=== PATIENT | male | born 1965 | race Caucasian/White ===

== ENCOUNTER 2018-03-21 22:30 | Inpatient (IN) | payer SELFPAY ==
[2018-03-21] MEDS ORDERED: FENTANYL CITRATE INJ/PF 100 MCG/2 ML AMPUL IV ONE (22:52)
[2018-03-21] MEDS ORDERED: IPRATROPIUM/ALBUTEROL 0.5-2.5 MG/3 ML AMPUL NEB ONE (22:59)
--- NOTE | 2018-03-21 23:05 | ER Document Report ---
ED General <DORON CADET - Last Filed: 03/21/18 23:11> - General TRAVEL OUTSIDE OF THE [place] IN LAST 30 DAYS: No <JEFF LERNER - Last Filed: 03/22/18 06:53> - General Chief Complaint: Shortness Of Breath Stated Complaint: CHEST PAIN/DIFFICULTY BREATHING Time Seen by Provider: 03/21/18 22:41 Notes: Patient is a 53-year-old male who presents emergency department for shortness of breath. This started yesterday and he states his shortness of breath has gotten worse in the past 2 hours. He also has associated chest pain with this. He also complains of lower extremity swelling that has increased for the past 2 days. He has a history of sleep apnea. He also has a history of chronic back pain, in which he takes Vicodin and gabapentin. He has not taken his gabapentin or Vicodin today. Denies any fevers, body aches, or chills. (MARY LERNERHANIE Lizzy) - Related Data Allergies/Adverse Reactions: No Known Allergies Allergy (Verified 03/21/18 22:33) Past Medical History - Social History Smoking Status: Never Smoker Frequency of alcohol use: None Drug Abuse: None Lives with: Spouse/Significant other Family History: Hypertension, Other - CHF - Past Medical History Cardiac Medical History: Reports: Hx Hypertension Denies: Hx Coronary Artery Disease, Hx Heart Attack Pulmonary Medical History: Denies: Hx Asthma, Hx Bronchitis, Hx COPD, Hx Pneumonia Neurological Medical History: Denies: Hx Cerebrovascular Accident, Hx Seizures Musculoskeletal Medical History: Denies Hx Arthritis Psychiatric Medical History: Reports: Hx Anxiety - Immunizations Hx Diphtheria, Pertussis, Tetanus Vaccination: Yes <MARY LERNERHANIE Lizzy - Last Filed: 03/22/18 06:53> Review of Systems <DORON CADET - Last Filed: 03/21/18 23:11> <JEFF LERNER - Last Filed: 03/22/18 06:53> - Review of Systems Notes: REVIEW OF SYSTEMS: CONSTITUTIONAL : Denies recent illness. Denies recent unintentional weight loss. Denies fever, chills, or sweats. EENT: Denies eye, ear, throat, or mouth pain, discharge, or symptoms. Denies nasal or sinus congestion. CARDIOVASCULAR: See HPI RESPIRATORY: See HPI GASTROINTESTINAL: Denies nausea, vomiting, and diarrhea. Denies abdominal pain. Denies constipation. GENITOURINARY: Denies difficulty urinating, burning, blood in urine, urgency or frequency. MUSCULOSKELETAL: Denies neck and back pain. Denies joint pain or swelling. SKIN: Denies rash, itchiness, or lesions HEMATOLOGIC : Denies easy bruising or bleeding. LYMPHATIC: Denies swollen, painful, enlarged glands. NEUROLOGICAL: Denies no numbness or tingling denies weakness. Denies headache. Denies altered mental status. Denies alteration in speech. PSYCHIATRIC: Denies stress, anxiety, alteration in sleep patterns, or depression. All other systems reviewed and negative. (JEFF LERNER) Physical Exam <DORON CADET - Last Filed: 03/21/18 23:11> <JEFF LERNER - Last Filed: 03/22/18 06:53> - Vital signs Vitals: Temp Pulse Resp BP Pulse Ox 97.4 F 64 32 H 168/84 H 92 03/21/18 22:34 03/21/18 22:34 03/21/18 22:34 03/21/18 22:34 03/21/18 22:34 - Notes Notes: PHYSICAL EXAMINATION: GENERAL: Morbidly obese, well-nourished, moderate distress. HEAD: Normocephalic, atraumatic. EYES: PERRL, conjunctiva normal, all extraocular movements intact, sclera nonicteric ENT: Moist mucous membranes. NECK: Supple, no noticeable swelling, redness, rash. Normal range of motion. LUNGS: Clear upper lobes to auscultation. Diminished breath sounds with mild wheezing in the bases. Tachypneic CARDIOVASCULAR: S1-S2, regular rate, regular rhythm. Radial pulses 2+, normal. ABDOMEN: Normoactive bowel sounds. Soft, nontender, no guarding, no rebound tenderness, and no masses palpated. EXTREMITIES: 2+ pitting edema in lower extremities. normal strength and range of motion, No cyanosis. NEUROLOGICAL: Moves all extremities upon command. Strength 5/5 in all extremities. PSYCH: Normal mood, normal affect. SKIN: Warm, dry. No rash, lesions, ulcerations noted. Normal skin turgor. ( JEFF LERNER) Course - Laboratory Result Diagrams: 03/21/18 22:54 03/21/18 22:54 <DORON CADET - Last Filed: 03/21/18 23:11> - Laboratory Result Diagrams: 03/21/18 22:54 03/21/18 22:54 <JEFF LERNER - Last Filed: 03/22/18 06:53> - Re-evaluation Re-evalutation: 03/21/18 23:11 Patient was initially seen by the nurse practitioner, Mrs. lerner. She has me to evaluate patient as well. Patient has a lot of pain with respirations. Does not have a history of asthma and COPD. He started feeling short of breath in last 1-2 days. He was hypoxic upon arrival. He is obese. Has some swelling in his legs but equal bilaterally. No history of DVT or PE. On lung auscultation his upper lung wooten are clear but his lower lung wooten have some wheezing and decreased air movement. We will give her breathing treatment. Will do a chest x-ray to look for evidence of pneumonia. His EKG does not show any evidence of acute PA. Is no evidence of right heart strain on his EKG at this time. We will keep on clinical research monitor. Based on his chest x -ray and lab work will determine whether not we need to do further investigation into other potential causes such as PE. (DORON CADET) Differential diagnosis for the patient's chest pain includes ischemic chest pain (STEMI, NSTEMI, or unstable angina), pulmonary embolism, aortic dissection , pericarditis, chest wall pain. HEART Score: History:2 EK Age:2 Risk Factors:0 Troponin:0 Total: 3 03/21/18 23:03 Laboratory studies, chest x-ray, pain medicine, have been ordered. Will place patient on the clinical research monitor. His oxygen saturation was 89%, he was placed on 2 L nasal cannula. 03/22/18 00:25 Patient's x-ray is negative at this time. He will be sent for a CT of the chest to rule out PE. 03/22/18 01:[address] of the chest was negative for PE. He will be taken off oxygen and ambulated to see if he will desaturate. 03/22/18 02:05 She was ambulated from room to the bathroom, and he desaturated to 87% SPO2. Staff reported he was short of breath when walking to the bathroom. When he was put back in bed, his oxygen saturation was in the low 90s and was put back on oxygen. Awaiting second set of troponins. 03/22/18 02:48 Patient second troponins have resulted, and are negative. I will call Dr. Rivas for admission. 03/22/18 03:[address] Rivas, patient will be admitted to telemetry. (JEFF LERNER) - Vital Signs Vital signs: Temp Pulse Resp BP Pulse Ox 98.1 F 82 21 H 166/73 H 96 03/22/18 04:41 03/22/18 04:41 03/22/18 04:41 03/22/18 04:41 03/22/18 04:41 - Laboratory Laboratory results interpreted by me: 03/21/18 03/21/18 03/21/18 22:54 22:54 23:45 WBC 11.7 H Hgb 13.1 L Plt Count 122 L Seg Neutrophils % 80.9 H Lymphocytes % 12.7 L Absolute Neutrophils 9.4 H VBG pCO2 64.5 H VBG HCO3 34.6 H Carbon Dioxide 35 H TSH 03/22/18 01:45 WBC Hgb Plt Count Seg Neutrophils % Lymphocytes % Absolute Neutrophils VBG pCO2 VBG HCO3 Carbon Dioxide TSH 0.28 L Discharge <DORON CADET - Last Filed: 03/21/18 23:11> - Discharge Admitting Provider: Hospitalist Unit Admitted: Telemetry <JEFF LERNER - Last Filed: 03/22/18 06:53> - Discharge Clinical Impression: Hypoxia, Hypertension Condition: Fair Disposition: ADMITTED OBSERVATION
[2018-03-21 23:09] LABS: ABSOLUTE EOSINOPHILS # (AUTO) 0.2 10^3/uL (0.0-0.6); ABSOLUTE LYMPHOCYTES (AUTO) 1.5 10^3/uL (0.5-4.7); ABSOLUTE MONOCYTES (AUTO) 0.6 10^3/uL (0.1-1.4); ABSOLUTE NEUT (AUTO) 9.4 10^3/uL (1.7-8.2); BASOPHILS % (AUTO) 0.1 % (0-2); EOSINOPHILS % (AUTO) 1.5 % (0-6); HEMATOCRIT 39.9 % (37.9-51.0); HEMOGLOBIN 13.1 g/dL (13.5-17.0); LYMPHOCYTES % (AUTO) 12.7 % (13-45); MEAN CORPUSCULAR HEMOGLOBIN 29.9 pg (27.0-33.4); MEAN CORPUSCULAR HGB CONC 32.9 g/dL (32.0-36.0); MEAN CORPUSCULAR VOLUME 91 fl (80-97); MONOCYTES % (AUTO) 4.8 % (3-13); RED BLOOD COUNT 4.39 10^6/uL (4.35-5.55); RED CELL DISTRIBUTION WIDTH 13.9 % (11.5-14.0); SEGMENTED NEUTROPHILS % (AUTO) 80.9 % (42-78); TOTAL CELLS COUNTED % (AUTO) 100 %; WHITE BLOOD COUNT 11.7 10^3/uL (4.0-10.5)
[2018-03-21 23:16] LABS: PLATELET COUNT 122 10^3/uL (150-450)
[2018-03-21 23:17] LABS: ALANINE AMINOTRANSFERASE 47 U/L (21-72); ALKALINE PHOSPHATASE 62 U/L (38-126); ANION GAP 9 (5-19); ASPARTATE AMINO TRANSFERASE 33 U/L (17-59); BILIRUBIN,DIRECT 0.4 mg/dL (0.0-0.4); BILIRUBIN,TOTAL 0.5 mg/dL (0.2-1.3); BLOOD UREA NITROGEN 12 mg/dL (7-20); CALCIUM 8.9 mg/dL (8.4-10.2); CARBON DIOXIDE 35 mmol/L (22-30); CHLORIDE 99 mmol/L (98-107); GLUCOSE 107 mg/dL (75-110); POTASSIUM 4.4 mmol/L (3.6-5.0); SODIUM 142.5 mmol/L (137-145); TOTAL PROTEIN 7.1 g/dL (6.3-8.2)
[2018-03-21 23:29] LABS: TROPONIN I 0.013 ng/mL
[2018-03-21] MEDS ORDERED: MORPHINE SULFATE 10 MG/ML INJ IV ONE (23:43)
[2018-03-22 00:08] LABS: VENOUS BLOOD BASE EXCESS 6.7 mmol/L; VENOUS BLOOD HCO3 34.6 mmol/L (20-32); VENOUS BLOOD PCO2 64.5 mmHg (35-63); VENOUS BLOOD PH 7.35 (7.30-7.42)
[2018-03-22 00:10] LABS: INTERNATIONAL RATION (INR) 0.96; PROTHROMBIN TIME 13.3 SEC (11.4-15.4)
--- NOTE | 2018-03-22 00:19 | RADIOLOGY REPORT (SQ) ---
EXAM DESCRIPTION: XR CHEST 1 VIEW COMPLETED DATE/TME: 03/21/2018 22:42 CLINICAL HISTORY: 53 years, Male, difficulty breathing COMPARISON: None. NUMBER OF VIEWS: One TECHNIQUE: AP view of the chest LIMITATIONS: None. FINDINGS: The lungs are clear. The heart is mildly enlarged. There is mild elevation the right hemidiaphragm. There is no pneumothorax or pleural effusion. There is no acute fracture IMPRESSION: No acute cardiopulmonary abnormality 2010 [employer] [facility] [employer]- All Rights Reserved
[2018-03-22 00:24] LABS: PARTIAL THROMBOPLASTIN TIME 33.9 SEC (23.5-35.8)
--- NOTE | 2018-03-22 01:26 | RADIOLOGY REPORT (SQ) ---
CT CHEST ANGIOGRAPHY WITHOUT THEN WITH IV CONTRAST HISTORY: Shortness of breath. Evaluate for pulmonary embolism. COMPARISON: None. TECHNIQUE: CT angiogram of the chest with IV contrast. 3-D MIP images were obtained in coronal and sagittal reconstructions. This exam was performed according to our departmental dose-optimization program, which includes automated exposure control, adjustment of the mA and/or kV according to patient size and/or use of iterative reconstruction technique. Motion artifact limits evaluation. FINDINGS: No acute pulmonary embolism is seen. No thoracic aortic aneurysm or dissection. Mild cardiomegaly is present. No pericardial effusion. Thyroid gland is unremarkable. No mediastinal, hilar, or axillary adenopathy is seen. No consolidation, pleural effusion, or pneumothorax is identified. Visualized upper abdomen is unremarkable. Osseous structures are intact. IMPRESSION: No acute pulmonary embolism.
[2018-03-22] MEDS ORDERED: ASPIRIN 325 MG TABLET PO ONE (02:57)
[2018-03-22] MEDS ORDERED: HYDRALAZINE HCL INJ/PF 20 MG/1 ML SDV IV ONE (02:58)
[2018-03-22] MEDS ORDERED: FUROSEMIDE 40 MG TABLET PO ONE (02:58)
[2018-03-22] MEDS ORDERED: IPRATROPIUM/ALBUTEROL 0.5-2.5 MG/3 ML AMPUL NEB PRN (03:23)
[2018-03-22] MEDS ORDERED: ACETAMINOPHEN 325 MG TABLET PO PRN (03:23)
[2018-03-22] MEDS ORDERED: MAGNESIUM HYDROXIDE SUSP 30 ML UDCUP PO PRN (03:23)
[2018-03-22] MEDS ORDERED: MAG HYDROX/AL HYDROX/SIMETH SUSP 30 ML UDCUP PO PRN (03:23)
--- NOTE | 2018-03-22 03:34 | PDOC H&P ---
History of Present Illness Admission Date/PCP: 03/22/18 03:14 Patient complains of: Shortness of breath and chest pain History of Present Illness: DUNCAN POLK is a 53 year old male with a past medical history of morbid obesity, opiate dependent chronic pain, sleep apnea and noncompliance. Patient presents with at least 24 hours of worsening shortness of breath at rest associated with retrosternal chest pain 3 out of 5 intensity, which is nonradiating pressure in nature exacerbated by deep breathing, denies palpitations nausea or vomiting. In the emergency room he is found to have hypoxia of 87% on room air requiring oxygen. Chemistry suggestive of chronic hypercapnia. He is referred to the hospitalist for admission. Patient admits to lower extremity edema and noncompliance with CPAP. He denies recent changes in medication regiment. Past Medical History Cardiac Medical History: Reports: Hypertension Denies: Coronary Artery Disease, Myocardial Infarction Pulmonary Medical History: Reports: Sleep Apnea Denies: Asthma, Bronchitis, Chronic Obstructive Pulmonary Disease (COPD), Pneumonia Neurological Medical History: Denies: Seizures Endocrine Medical History: Reports: Obesity Musculoskeltal Medical History: Denies: Arthritis Hematology: Denies: Anemia Social History Information Source: Patient Smoking Status: Never Smoker Frequency of Alcohol Use: None Drugs: None - Advance Directive Resuscitation Status: Full Code Family History Family History: Hypertension Parental Family History Reviewed: Yes Children Family History Reviewed: Yes Sibling(s) Family History Reviewed.: Yes Medication/Allergy Home Medications: Buspirone HCl [Buspar 15 mg Tablet] 10 mg PO BID 10/15/12 Diazepam [Valium 5 mg Tablet] 10 mg PO QHS PRN 10/15/12 Lisinopril [Prinivil 5 mg Tablet] 2.5 mg PO DAILY #0 tablet 10/16/12 Metoprolol Tartrate [Lopressor 25 mg Tablet] 12.5 mg PO Q12 #0 tablet 10/16/12 Gabapentin [Gralise] 300 mg PO TID 08/25/14 Multivitamin [Multivitamins] 1 tab PO DAILY 08/25/14 Naproxen 500 mg PO BID 08/25/14 Oxycodone HCl/Acetaminophen [Percocet 5-325 mg Tablet] 1 - 2 tab PO ASDIR PRN # 30 tablet 09/01/14 Allergies/Adverse Reactions: No Known Allergies Allergy (Verified 03/21/18 22:33) Review of Systems Constitutional: PRESENT: as per HPI, fatigue, weight gain. ABSENT: chills, fever(s), headache(s), weight loss Eyes: ABSENT: visual disturbances Ears: ABSENT: hearing changes Cardiovascular: PRESENT: as per HPI, chest pain, edema, orthropnea. ABSENT: dyspnea on exertion, palpitations Respiratory: PRESENT: dyspnea. ABSENT: cough, hemoptysis, sputum Gastrointestinal: ABSENT: abdominal pain, constipation, diarrhea, hematemesis, hematochezia, nausea, vomiting Genitourinary: ABSENT: dysuria, hematuria Musculoskeletal: PRESENT: back pain. ABSENT: joint swelling Integumentary: ABSENT: rash, wounds Neurological: ABSENT: abnormal gait, abnormal speech, confusion, dizziness, focal weakness, syncope Psychiatric: ABSENT: anxiety, depression, homidical ideation, suicidal ideation Endocrine: ABSENT: cold intolerance, heat intolerance, polydipsia, polyuria Hematologic/Lymphatic: ABSENT: easy bleeding, easy bruising Physical Exam Vital Signs: Temp Pulse Resp BP Pulse Ox 97.4 F 64 19 160/88 H 95 03/21/18 22:34 03/21/18 22:34 03/22/18 03:01 03/22/18 03:01 03/22/18 03:01 General appearance: PRESENT: cooperative, mild distress, morbidly obese, well- developed, well-nourished Head exam: PRESENT: atraumatic, normocephalic Eye exam: PRESENT: conjunctiva pink, EOMI, PERRLA. ABSENT: scleral icterus Ear exam: PRESENT: normal external ear exam Mouth exam: PRESENT: moist, tongue midline Neck exam: ABSENT: carotid bruit, JVD, lymphadenopathy, thyromegaly Respiratory exam: PRESENT: accessory muscle use, clear to auscultation jess, crackles, prolonged expiratory phas, tachypnea. ABSENT: rales, rhonchi, wheezes Cardiovascular exam: PRESENT: RRR. ABSENT: diastolic murmur, rubs, systolic murmur Pulses: PRESENT: normal dorsalis pedis pul Vascular exam: PRESENT: normal capillary refill GI/Abdominal exam: PRESENT: normal bowel sounds, soft. ABSENT: distended, guarding, mass, organolmegaly, rebound, tenderness Rectal exam: PRESENT: deferred Extremities exam: PRESENT: full ROM, +1 edema. ABSENT: calf tenderness, clubbing, pedal edema Neurological exam: PRESENT: alert, awake, oriented to person, oriented to place , oriented to time, oriented to situation, CN II-XII grossly intact. ABSENT: motor sensory deficit Psychiatric exam: PRESENT: appropriate affect, normal mood. ABSENT: homicidal ideation, suicidal ideation Skin exam: PRESENT: dry, intact, warm. ABSENT: cyanosis, rash Results Impressions: Chest X-Ray 03/21/18 22:42 IMPRESSION: No acute cardiopulmonary abnormality 2010 [employer] [facility]- All Rights Reserved Chest/Abdomen CTA 03/22/18 00:26 IMPRESSION: No acute pulmonary embolism. Assessment & Plan - Diagnosis (1) Morbid obesity with alveolar hypoventilation Is this a current diagnosis for this admission?: Yes Plan: Limit medications reducing respiratory drive, follow-up urine drug screen, CPAP and education (2) Hypercapnic respiratory failure Is this a current diagnosis for this admission?: Yes Plan: Secondary to #1 (3) Opiate dependence Is this a current diagnosis for this admission?: Yes Plan: Weaning given contributing to respiratory failure (4) Obstructive sleep apnea Is this a current diagnosis for this admission?: Yes Plan: CPAP (5) Noncompliance Is this a current diagnosis for this admission?: Yes Plan: Education (6) Atypical chest pain Is this a current diagnosis for this admission?: Yes Plan: Atypical chest pain though the patient's pain is atypical there are multiple risk factors for coronary artery disease and subsequently will observe and evaluation of acute coronary syndrome versus coronary artery disease with anginal equivalents. Cardiac monitoring blood pressure Q6 hours ,TSH, lipid profile, serial cardiac enzymes and consideration of cardiac stress test - Time Time Spent: 50 to 70 Minutes - Inpatient Certification Medical Necessity: Need Close Monitoring Due to Risk of Patient Decompensation
[2018-03-22] MEDS: HEPARIN SOD (PORCINE) 5,000 UNIT/ML 1 ML SYRINGE SUBCUT SCH ×3 (05:47→21:27)
[2018-03-22 07:04] LABS: URINE AMPHETAMINES SCREEN NEGATIVE; URINE BENZODIAZEPINES SCREEN NEGATIVE; URINE COCAINE SCREEN NEGATIVE; URINE MARIJUANA (THC) SCREEN NEGATIVE; URINE PHENCYCLIDINE SCREEN NEGATIVE
[2018-03-22 07:05] LABS: URINE BARBITURATES SCREEN NEGATIVE; URINE METHADONE SCREEN NEGATIVE
[2018-03-22] MEDS ORDERED: IPRATROPIUM/ALBUTEROL 0.5-2.5 MG/3 ML AMPUL NEB SCH (08:00)
[2018-03-22] MEDS ORDERED: ADENOSINE INJ/PF 6 MG/2 ML SDV IV ONE (08:48)
[2018-03-22] MEDS ORDERED: DILTIAZEM HCL/D5W 125 MG/125 ML RTUINJ IV PRN (09:01)
[2018-03-22 09:02] LABS: TROPONIN I < 0.012 ng/mL
[2018-03-22] MEDS ORDERED: NORMAL SALINE 1000 ML 1,000 ML IV PRN (09:03)
[2018-03-22] MEDS ORDERED: DILTIAZEM HCL INJ 25 MG/5 ML VIAL ONE ×2 (09:05→13:49)
[2018-03-22 09:10] LABS: ANION GAP 12 (5-19); BLOOD UREA NITROGEN 9 mg/dL (7-20); CALCIUM 9.4 mg/dL (8.4-10.2); CARBON DIOXIDE 34 mmol/L (22-30); CHLORIDE 96 mmol/L (98-107); GLUCOSE 133 mg/dL (75-110); POTASSIUM 4.1 mmol/L (3.6-5.0); SODIUM 141.8 mmol/L (137-145)
[2018-03-22] MEDS ORDERED: DILTIAZEM HCL INJ 25 MG/5 ML VIAL IV ONE ×2 (09:30→14:00)
[2018-03-22 09:32] LABS: ARTERIAL BLOOD BASE EXCESS 9.3 mmol/L; ARTERIAL BLOOD FIO2 4L; ARTERIAL BLOOD HCO3 35.3 mmol/L (20-24); ARTERIAL BLOOD O2 SATURATION 95.8 % (94-98); ARTERIAL BLOOD PH 7.44 (7.35-7.45); ARTERIAL BLOOD PO2 78.5 mmHg (80-100); ARTERIAL BLOOD TOTAL CO2 36.9 mmol/L (23-27)
--- NOTE | 2018-03-22 09:56 | EKG REPORT ---
SEVERITY:- ABNORMAL ECG - SINUS TACHYCARDIA NONSPECIFIC T ABNORMALITIES, DIFFUSE LEADS PROLONGED QT INTERVAL : Confirmed by: Eric Olivares MD 22-Mar-2018 09:55:37
--- NOTE | 2018-03-22 09:56 | EKG REPORT ---
SEVERITY:- BORDERLINE ECG - SINUS RHYTHM BORDERLINE R WAVE PROGRESSION, ANTERIOR LEADS : Confirmed by: Eric Olivares MD 22-Mar-2018 09:56:09
[2018-03-22 09:57] LABS: ABSOLUTE LYMPHOCYTES (AUTO) 0.9 10^3/uL (0.5-4.7); ABSOLUTE MONOCYTES (AUTO) 0.7 10^3/uL (0.1-1.4); ABSOLUTE NEUT (AUTO) 9.3 10^3/uL (1.7-8.2); BASOPHILS % (AUTO) 0.3 % (0-2); EOSINOPHILS % (AUTO) 0.2 % (0-6); HEMATOCRIT 39.4 % (37.9-51.0); HEMOGLOBIN 13.2 g/dL (13.5-17.0); MEAN CORPUSCULAR HEMOGLOBIN 30.2 pg (27.0-33.4); MEAN CORPUSCULAR HGB CONC 33.5 g/dL (32.0-36.0); MEAN CORPUSCULAR VOLUME 90 fl (80-97); MONOCYTES % (AUTO) 6.8 % (3-13); PLATELET COUNT 212 10^3/uL (150-450); RED BLOOD COUNT 4.37 10^6/uL (4.35-5.55); RED CELL DISTRIBUTION WIDTH 13.7 % (11.5-14.0); SEGMENTED NEUTROPHILS % (AUTO) 84.7 % (42-78); TOTAL CELLS COUNTED % (AUTO) 100 %
[2018-03-22 12:16] LABS: APPEARANCE,URINE CLEAR; BILIRUBIN,URINE NEGATIVE (NEGATIVE); COLOR,URINE COLORLESS; GLUCOSE, URINE NEGATIVE (NEGATIVE); KETONES,URINE NEGATIVE (NEGATIVE); LEUKOCYTE ESTERASE,URINE NEGATIVE (NEGATIVE); NITRITE,URINE NEGATIVE (NEGATIVE); PROTEIN,URINE NEGATIVE (NEGATIVE); URINE SPECIFIC GRAVITY 1.006; UROBILINOGEN,URINE NEGATIVE mg/dL (<2.0)
[2018-03-22] MEDS ORDERED: DILTIAZEM HCL 240 MG CAPSULE.CR PO ONE ×2 (13:07→14:00)
--- NOTE | 2018-03-22 13:39 | PDOC CONSULTATION ---
Consultation Consult Date: 03/22/18 Attending physician:: LOIS CHRIS Consult reason:: Supraventricular tachycardia History of Present Illness Admission Date/PCP: 03/22/18 03:14 Patient complains of: Shortness of breath History of Present Illness: DUNCAN POLK is a 53 year old male is a 53 year old male with a past medical history of morbid obesity, opiate dependent chronic pain, sleep apnea and noncompliance. Patient presents with at least 24 hours of worsening shortness of breath at rest associated with retrosternal chest pain 3 out of 5 intensity, which is nonradiating pressure in nature exacerbated by deep breathing, denies palpitations nausea or vomiting. In the emergency room he is found to have hypoxia of 87% on room air requiring oxygen. Chemistry suggestive of chronic hypercapnia. He is referred to the hospitalist for admission. Patient admits to lower extremity edema and noncompliance with CPAP. He denies recent changes in medication regiment. This morning he was noted to have supraventricular tachycardia with heart rate in the 160s. I was called by the hospitalist about this condition. I ordered Cardizem 25 mg IV to be given which converted patient to sinus rhythm. Patient comfortable, resting comfortably with BiPAP therapy. Patient denies any prior history of heart problems but has chronic lung problems. He also is severely obese. Past Medical History Cardiac Medical History: Reports: Hypertension Denies: Coronary Artery Disease, Myocardial Infarction Pulmonary Medical History: Reports: Sleep Apnea Denies: Asthma, Bronchitis, Chronic Obstructive Pulmonary Disease (COPD), Pneumonia Neurological Medical History: Denies: Seizures Endocrine Medical History: Reports: Obesity Musculoskeltal Medical History: Denies: Arthritis Hematology: Denies: Anemia Social History Information Source: Patient Lives with: Spouse/Significant other Smoking Status: Never Smoker Frequency of Alcohol Use: None Drugs: None - Advance Directive Resuscitation Status: Full Code Surrogate healthcare decision maker:: Patient's is the surrogate decision-maker Family History Family History: Hypertension, Other - CHF Parental Family History Reviewed: Yes Children Family History Reviewed: Yes Sibling(s) Family History Reviewed.: Yes Medication/Allergy Home Medications: Gabapentin [Neurontin 300 mg Capsule] 300 mg PO Q8 03/22/18 Hydrocodone/Acetaminophen [[place] 10-325 mg Tablet] 1 tab PO Q6HP PRN 03/22/18 Allergies/Adverse Reactions: No Known Allergies Allergy (Verified 03/21/18 22:33) Review of Systems Review of Systems: Please see history of present illness and past medical history as wall. Constitutional: No fever or chills reported. Head : No recent chronic headaches, recent head injury. Eyes: No recent eye pain, diplopia, redness, discharge, acute visual changes. Ears: No recent chronic ear pain, acute hearing loss, ear discharge. Oral cavity: No recent ulcerations, bleeding, oral cavity discomfort. Neck: No recent acute neck pain reported. Hematologic: No recent easy bruising or bleeding. Lymphatic: No recent lymph node enlargement reported. Cardiovascular system review: See history of present illness. Respiratory system review: No hemoptysis or blood clots in the lungs reported. Mild Shortness of breath on exertion Gastrointestinal system review: Negative for any recent acute hematemesis, melena. Genitourinary system review: No recent acute or chronic hematuria, flank pain, UTI etc. reported. Skin system review: Negative for any recent abnormal bruising, no rash, no pruritus reported. Neurologic: No prior history of strokes, mini strokes, seizure disorder. Psychologic: No history of major psychosis or major depression reported. Musculoskeletal: Minor aches and pains reported. No acute joint swelling reported. Endocrine: No recent polyuria, polydipsia, recent heat or cold intolerance. Physical Exam Vital Signs: Temp Pulse Resp BP Pulse Ox 98.5 F 75 23 H 162/72 H 97 03/22/18 12:00 03/22/18 12:00 03/22/18 12:00 03/22/18 12:00 03/22/18 12:00 Intake & Output 03/21/18 03/22/18 03/23/18 06:59 06:59 06:59 Weight 173.2 kg 170.6 kg Exam: GENERAL: well-nourished and in no acute distress. Alert and oriented x3 HEAD: Atraumatic, normocephalic. EYES: EFRAIN, sclera anicteric, conjunctiva are normal. ENT: Moist mucous membranes. No oral ulcerations or bleeding gums noted. No obvious ear, nose or throat abnormalities noted. NECK: supple without lymphadenopathy. Trachea is central. No cervical or axillary lymphadenopathy noted. Carotids are 2+, JVD WNL LUNGS: Bilateral mild wheezes rales or rhonchi noted. No significant dullness noted on percussion. CHEST: Palpation of the chest wall shows no significant chest wall tenderness. HEART: [place] [employer]IST, No PSH, 1/6 MAHNAZ aortic area, 1/6 randolph systolic murmur mitral area, no rubs, no gallops. ABDOMEN: Soft, no significant tenderness appreciated, normoactive bowel sounds. No guarding, no rebound. No rigidity noted . No masses appreciated. EXTREMITIES: Pedal pulses are 1-2+, no calf tenderness noted. No clubbing or cyanosis. negative pedal edema noted NEUROLOGICAL: Focused neurological exam showed no significant neurologic deficit. Normal speech, no focal weakness appreciated. PSYCH: Normal mood, normal affect. Judgment and insight within normal limits. SKIN: No significant ecchymosis, skin is noted to be warm. MUSCULOSKELETAL EXAM: No significant acute joint swelling noted. Results Laboratory Results: 03/22/18 09:48 03/22/18 08:00 03/22/18 03/22/18 03/22/18 05:55 08:00 08:00 WBC Cancelled RBC Cancelled Hgb Cancelled Hct Cancelled MCV Cancelled MCH Cancelled MCHC Cancelled RDW Cancelled Plt Count Cancelled Seg Neutrophils % Cancelled Lymphocytes % Cancelled Monocytes % Cancelled Eosinophils % Cancelled Basophils % Cancelled Absolute Neutrophils Cancelled Absolute Lymphocytes Cancelled Absolute Monocytes Cancelled Absolute Eosinophils Cancelled Absolute Basophils Cancelled Carbonic Acid HCO3/H2CO3 Ratio ABG pH ABG pCO2 ABG pO2 ABG HCO3 ABG O2 Saturation ABG Base Excess FiO2 Sodium 141.8 Potassium 4.1 Chloride 96 L Carbon Dioxide 34 H Anion Gap 12 BUN 9 Creatinine 0.63 Est GFR ( Amer) > 60 Est GFR (Non-Af Amer) > 60 Glucose 133 H Calcium 9.4 Magnesium Urine Color COLORLESS Urine Appearance CLEAR Urine pH 6.0 Ur Specific [place] 1.006 Urine Protein NEGATIVE Urine Glucose (UA) NEGATIVE Urine Ketones NEGATIVE Urine Blood NEGATIVE Urine Nitrite NEGATIVE Ur Leukocyte Esterase NEGATIVE Urine WBC (Auto) 0 03/22/18 03/22/18 03/22/18 08:58 09:00 09:48 WBC 11.0 H RBC 4.37 Hgb 13.2 L Hct 39.4 MCV 90 MCH 30.2 MCHC 33.5 RDW 13.7 Plt Count 212 Seg Neutrophils % 84.7 H Lymphocytes % 8.0 L Monocytes % 6.8 Eosinophils % 0.2 Basophils % 0.3 Absolute Neutrophils 9.3 H Absolute Lymphocytes 0.9 Absolute Monocytes 0.7 Absolute Eosinophils 0.0 Absolute Basophils 0.0 Carbonic Acid 1.60 H HCO3/H2CO3 Ratio 22:1 ABG pH 7.44 ABG pCO2 53.0 H ABG pO2 78.5 L ABG HCO3 35.3 H ABG O2 Saturation 95.8 ABG Base Excess 9.3 FiO2 4L Sodium Potassium Chloride Carbon Dioxide Anion Gap BUN Creatinine Est GFR ( Amer) Est GFR (Non-Af Amer) Glucose Calcium Magnesium 1.8 Urine Color Urine Appearance Urine pH Ur Specific [place] Urine Protein Urine Glucose (UA) Urine Ketones Urine Blood Urine Nitrite Ur Leukocyte Esterase Urine WBC (Auto) 03/22/18 03/22/18 03/22/18 08:00 08:00 09:00 Creatine Kinase 52 L 52 L CK-MB (CK-2) 0.60 Troponin I < 0.012 NT-Pro-B Natriuret Pep 03/22/18 09:00 Creatine Kinase CK-MB (CK-2) Troponin I NT-Pro-B Natriuret Pep 1030 H EKG Comments: Sinus rhythm with no acute ST-T wave changes noted. EKG with SVT is actually AVNRT with long RP interval. Impressions: Chest X-Ray 03/21/18 22:42 IMPRESSION: No acute cardiopulmonary abnormality 2010 [employer]- All Rights Reserved Chest/Abdomen CTA 03/22/18 00:26 IMPRESSION: No acute pulmonary embolism. Assessment & Plan - Diagnosis (1) AVNRT (AV nicolás re-entry tachycardia) Is this a current diagnosis for this admission?: Yes (2) Chest pain Qualifiers: Chest pain type: unspecified Qualified Code(s): R07.9 - Chest pain, unspecified Is this a current diagnosis for this admission?: Yes (3) Hypertension Qualifiers: Hypertension type: unspecified Qualified Code(s): I10 - Essential (primary ) hypertension Is this a current diagnosis for this admission?: Yes (4) Morbid obesity with alveolar hypoventilation Is this a current diagnosis for this admission?: Yes (5) Obstructive sleep apnea Is this a current diagnosis for this admission?: Yes - Notes Notes: AVNRT: Patient felt to have AVNRT with long RP interval. Patient did respond to IV Cardizem. Recommend switch patient to p.o. Cardizem 240 mg p.o. twice daily may be needed for this kacey with large body weight. May add multaq if needed. Chest pain: Possibly atypical and related to tachycardia. May benefit from nuclear stress test. Agree with obtaining cardiac enzymes. Hypertension: Blood pressure goal should be 135/85 or less in this young gentleman. Morbid obesity with hypoventilation: Patient will benefit from nightly BiPAP therapy and also BiPAP therapy while sleeping. Obstructive sleep apnea: Patient will benefit from positive pressure noninvasive ventilation. Morbid obesity: Patient will benefit from aggressive weight loss. May consider belviq therapy, which at the safest cardiovascular profile. - Time Time Spent: 30 to 50 Minutes - CODE STATUS was discussed, patient remains full code. Surrogate decision-maker patient's spouse. Multiple medical problems were addressed. More than 50% of the time spent coordinating care, discussing management plans with involved caregivers. Management plans discussed with involved personnels. Medical decision making was of moderate to high complexity , patient's has multiple comorbidities. Medications reviewed and adjusted accordingly: Yes
[2018-03-22] MEDS: HYDROCODONE/ACETAMINOPHEN 10-325 MG TABLET PO PRN (14:40)
[2018-03-22] MEDS: GABAPENTIN 300 MG CAPSULE PO SCH ×2 (14:43→21:25)
[2018-03-22] MEDS: PREDNISONE 20 MG TABLET PO SCH (14:43)
[2018-03-22] MEDS: DRONEDARONE HYDROCHLORIDE 400 MG TABLET PO SCH ×2 (14:53→21:27)
--- NOTE | 2018-03-22 15:04 | PDOC PROGRESS REPORT ---
Subjective Progress Note for:: 03/22/18 Subjective:: The patient is a 53-year-old male with a past medical history of morbid obesity , opiate dependence due to chronic pain, and sleep apnea who was admitted 2017 for complaint of dyspnea and chest pain. Patient was seen on morning rounds and checked on again multiple times throughout the day. Early this morning, received a phone call from nursing as the patient had developed sudden, severe fatigue shortly after becoming tachycardic with a heart rate sustained in the 160s. Rapid response was called. The patient was subsequently transferred to the ICU and provided a diltiazem bolus and placed on a drip; converting to a sinus rhythm with a heart rate in the 70s. The patient reports intermittent substernal chest discomfort that is nonradiating and exacerbated by deep breaths or cough. He states that the discomfort has been present for several weeks to months and gradually becoming more frequent and severe. The pain is further aggravated by lying supine and improved when sitting high Hsu's or standing upright. It is not especially worsened by physical activity. The patient denies recent symptoms suggestive of upper respiratory infection. He does note that his CPAP machine has been broken for at least one month. He does continue to use chewing tobacco but denies cigarette smoking. He denies fever, chills, headache, dizziness, palpitations, abdominal pain, nausea and vomiting. He has no specific questions or concerns at this time. Reason For Visit: ACUTE ON CHRONIC HYPERCAPNIC RESP FAILURE Physical Exam Vital Signs: Temp Pulse Resp BP Pulse Ox 98.5 F 75 24 H 137/67 H 99 03/22/18 12:00 03/22/18 12:00 03/22/18 14:16 03/22/18 14:16 03/22/18 12:41 Intake & Output 03/21/18 03/22/18 03/23/18 06:59 06:59 06:59 Intake Total 31 Balance 31 Weight 173.2 kg 170.6 kg General appearance: PRESENT: cooperative, mild distress, morbidly obese, well- developed, well-nourished Head exam: PRESENT: atraumatic, normocephalic Eye exam: PRESENT: conjunctiva pink, EOMI, PERRLA. ABSENT: scleral icterus Ear exam: PRESENT: normal external ear exam Mouth exam: PRESENT: moist, tongue midline Neck exam: ABSENT: carotid bruit, JVD, lymphadenopathy, thyromegaly Respiratory exam: PRESENT: accessory muscle use, clear to auscultation jess, decreased breath sounds - Throughout, prolonged expiratory phas, symmetrical, tachypnea. ABSENT: rales, rhonchi, wheezes Cardiovascular exam: PRESENT: irregular rhythm, +S1, +S2, tachycardia. ABSENT: diastolic murmur, rubs, systolic murmur Pulses: PRESENT: normal dorsalis pedis pul Vascular exam: PRESENT: normal capillary refill GI/Abdominal exam: PRESENT: normal bowel sounds, soft. ABSENT: distended, guarding, mass, organolmegaly, rebound, tenderness Rectal exam: PRESENT: deferred Extremities exam: PRESENT: full ROM, +1 edema. ABSENT: calf tenderness, clubbing, pedal edema Neurological exam: PRESENT: alert, awake, oriented to person, oriented to place , oriented to time, oriented to situation, CN II-XII grossly intact. ABSENT: motor sensory deficit Psychiatric exam: PRESENT: appropriate affect, normal mood. ABSENT: homicidal ideation, suicidal ideation Skin exam: PRESENT: dry, intact, warm. ABSENT: cyanosis, rash Results Laboratory Results: 03/22/18 09:48 03/22/18 08:00 03/22/18 03/22/18 03/22/18 05:55 08:00 08:00 WBC Cancelled RBC Cancelled Hgb Cancelled Hct Cancelled MCV Cancelled MCH Cancelled MCHC Cancelled RDW Cancelled Plt Count Cancelled Seg Neutrophils % Cancelled Lymphocytes % Cancelled Monocytes % Cancelled Eosinophils % Cancelled Basophils % Cancelled Absolute Neutrophils Cancelled Absolute Lymphocytes Cancelled Absolute Monocytes Cancelled Absolute Eosinophils Cancelled Absolute Basophils Cancelled Carbonic Acid HCO3/H2CO3 Ratio ABG pH ABG pCO2 ABG pO2 ABG HCO3 ABG O2 Saturation ABG Base Excess FiO2 Sodium 141.8 Potassium 4.1 Chloride 96 L Carbon Dioxide 34 H Anion Gap 12 BUN 9 Creatinine 0.63 Est GFR ( Amer) > 60 Est GFR (Non-Af Amer) > 60 Glucose 133 H Calcium 9.4 Magnesium Urine Color COLORLESS Urine Appearance CLEAR Urine pH 6.0 Ur Specific [place] 1.006 Urine Protein NEGATIVE Urine Glucose (UA) NEGATIVE Urine Ketones NEGATIVE Urine Blood NEGATIVE Urine Nitrite NEGATIVE Ur Leukocyte Esterase NEGATIVE Urine WBC (Auto) 0 03/22/18 03/22/18 03/22/18 08:58 09:00 09:48 WBC 11.0 H RBC 4.37 Hgb 13.2 L Hct 39.4 MCV 90 MCH 30.2 MCHC 33.5 RDW 13.7 Plt Count 212 Seg Neutrophils % 84.7 H Lymphocytes % 8.0 L Monocytes % 6.8 Eosinophils % 0.2 Basophils % 0.3 Absolute Neutrophils 9.3 H Absolute Lymphocytes 0.9 Absolute Monocytes 0.7 Absolute Eosinophils 0.0 Absolute Basophils 0.0 Carbonic Acid 1.60 H HCO3/H2CO3 Ratio 22:1 ABG pH 7.44 ABG pCO2 53.0 H ABG pO2 78.5 L ABG HCO3 35.3 H ABG O2 Saturation 95.8 ABG Base Excess 9.3 FiO2 4L Sodium Potassium Chloride Carbon Dioxide Anion Gap BUN Creatinine Est GFR ( Amer) Est GFR (Non-Af Amer) Glucose Calcium Magnesium 1.8 Urine Color Urine Appearance Urine pH Ur Specific [place] Urine Protein Urine Glucose (UA) Urine Ketones Urine Blood Urine Nitrite Ur Leukocyte Esterase Urine WBC (Auto) 03/22/18 03/22/18 03/22/18 08:00 08:00 09:00 Creatine Kinase 52 L 52 L CK-MB (CK-2) 0.60 Troponin I < 0.012 NT-Pro-B Natriuret Pep 03/22/18 09:00 Creatine Kinase CK-MB (CK-2) Troponin I NT-Pro-B Natriuret Pep 1030 H Impressions: Chest X-Ray 03/21/18 22:42 IMPRESSION: No acute cardiopulmonary abnormality 2010 [employer]- All Rights Reserved Chest/Abdomen CTA 03/22/18 00:26 IMPRESSION: No acute pulmonary embolism. Assessment & Plan - Diagnosis (1) Hypercapnic respiratory failure Qualifiers: Chronicity: unspecified Qualified Code(s): J96.92 - Respiratory failure, unspecified with hypercapnia Is this a current diagnosis for this admission?: Yes Plan: Likely multifactorial secondary to morbid obesity and possibly underlying COPD. Patient presented with complaint of several weeks of progressively worsening dyspnea now associated with chest discomfort. Chemistry revealed an elevated bicarb to 35 and VBG demonstrated PCO2 of 64.5; indicating chronic hypercapnia., On arrival the patient was noted to be hypoxic on room air. ABG this morning on 4 L via nasal cannula demonstrated compensated respiratory acidosis with a PCO2 of 53 and bicarb of 35.3. Chest x-ray was negative for acute findings. CTA of the chest is benign. The patient was initially admitted to the medical floor on continuous cardiac telemetry, briefly upgraded to ICU for PSVT, has now been downgraded to IMCU. Continue supplemental oxygen as needed to maintain oxygen saturations greater than 89%. Continue BiPAP nightly and as needed. Continue scheduled and as needed nebulizer treatments. Prednisone 60 mg daily. Incentive spirometer and flutter valve to bedside. Consider PFT and/or pulmonary consultation. (2) Atypical chest pain Is this a current diagnosis for this admission?: Yes Plan: The patient complains of intermittent, nonradiating, chest discomfort that worsens with deep breath and cough and is not exacerbated by physical activity. Likely secondary to #1, however, today did develop AV nicolás reentry tachycardia. His chest discomfort could be rhythm awareness. Chest x-ray and CTA of the chest are benign. Serial troponins are negative. ProBNP is mildly elevated to 1030 Echocardiogram is pending. He is currently upgraded to IMCU. We will continue to monitor on continuous cardiac telemetry. The patient received IV diltiazem boluses x2 and was briefly placed on diltiazem drip. Cardiology has been consulted with recommendations to transition to p.o. diltiazem. Appreciate their evaluation and expert recommendations. (3) AVNRT (AV nicolás re-entry tachycardia) Is this a current diagnosis for this admission?: Yes Plan: TSH low at 0.28, Free T4 and Serum T3 are pending. Remaining evaluation and plan as above. Daily aspirin therapy. (4) Hypertension Qualifiers: Hypertension type: unspecified Qualified Code(s): I10 - Essential (primary ) hypertension Is this a current diagnosis for this admission?: Yes Plan: The patient denies history of hypertension and is not on home medications. He was noted to be hypertensive on arrival with blood pressures as high as 185/79. He is now on diltiazem with improved blood pressures; currently 137/67. We will continue to monitor and adjust medications as necessary. Cardiac diet. Cardiology is consulted. (5) Obstructive sleep apnea Is this a current diagnosis for this admission?: Yes Plan: Supplemental oxygen as needed to maintain oxygen saturations greater than 89%. BiPAP nightly and as needed. (6) Opiate dependence Is this a current diagnosis for this admission?: Yes Plan: Opiate dependence with continuous use for chronic pain. We will continue his home medication regiment. (7) Morbid obesity with BMI of 50.0-59.9, adult Is this a current diagnosis for this admission?: Yes Plan: The patient has super morbid obesity with a BMI of 54. This is likely a primary factor in his chronic respiratory failure with hypercapnia. A1C 5.6% TSH low at 0.28 Dietary discretion is advised. He is placed on a cardiac and consistent carb diet. The acute care registered nurse is consulted. - Time Time Spent with patient: 35 or more minutes Medications reviewed and adjusted accordingly: Yes Anticipated discharge: Home
[2018-03-22 15:28] LABS: CREATINE KINASE MB 0.52 ng/mL (<4.55); TROPONIN I 0.014 ng/mL
[2018-03-22 15:54] LABS: FREE T3 2.74 pg/mL (2.77-5.27); FREE T4 (FREE THYROXINE) 1.09 ng/dL (0.78-2.19)
[2018-03-22] MEDS ORDERED: LEVALBUTEROL HCL NEB 1.25 MG/3 ML AMPUL NEB PRN (15:59)
--- NOTE | 2018-03-22 17:45 | EKG REPORT ---
SEVERITY:- ABNORMAL ECG - SINUS TACHYCARDIA VENTRICULAR PREMATURE COMPLEX AND PAC. CONSIDER ANTERIOR INFARCT NONSPECIFIC T ABNORMALITIES, DIFFUSE LEADS BORDERLINE PROLONGED QT INTERVAL : Confirmed by: Eric Olivares MD 22-Mar-2018 17:44:45
--- NOTE | 2018-03-22 17:45 | EKG REPORT ---
SEVERITY:- BORDERLINE ECG - SINUS RHYTHM ATRIAL PREMATURE COMPLEX CONSIDER ANTERIOR INFARCT : Confirmed by: Eric Olivares MD 22-Mar-2018 17:44:55
[2018-03-22] MEDS: TAMSULOSIN HCL 0.4 MG CAP.SR.24H PO SCH (17:59)
[2018-03-22] MEDS: DILTIAZEM HCL 240 MG CAPSULE.CR PO SCH (21:27)
[2018-03-22] MEDS: ASPIRIN 81 MG TABLET, ENT COATED PO SCH (21:27)
--- NOTE | 2018-03-22 21:51 | XCELERA REPORT ---
[address] [address] Transthoracic Echocardiogram Report Name: DUNCAN POLK Age: 53 yrs Gender: Male : 1965 Patient Status: Inpatient Patient Location: ICU^[id number]^A Study Date: 03/22/2018 09:57 AM Height: 70 in Weight: 381 lb BSA: 2.7 m2 Procedure: A complete two-dimensional transthoracic echocardiogram was performed (2D, M-mode, spectral and color flow Doppler). The study was technically difficult with many images being suboptimal in quality. Reason For Study: tachycardia, chest pain Ordering Physician: TEE MESSINAC Performed By: Mandie Holman Interpretation Summary The left ventricular ejection fraction is preserved. Consider additional methods to assess LVEF such as MUGA scan, CTA heart, cardiac MRI, DARNELL, etc. if clinically indicated. There is mild to moderate concentric left ventricular hypertrophy. The left ventricle is grossly normal size. LV diastolic function could not be adequately assessed. Regional wall motion abnormalities cannot be excluded due to limited visualization. The right ventricle is mild to moderately dilated. Right ventricular function cannot be assessed due to poor image quality. The right atrium is moderately dilated. The left atrium is moderately dilated. There is no mitral valve stenosis. There is a trace amount of mitral regurgitation There is no aortic valve stenosis No aortic regurgitation is present. There is a mild amount of tricuspid regurgitation There is mild to moderate pulmonary hypertension by echo Right ventricular systolic pressure is estimated to be elevated at 40-50mmHg. There is no pericardial effusion. MMode/2D Measurements & Calculations RVDd: 3.4 cm LVIDd: 5.4 cm FS: 36.5 % LA dimension: 4.5 cm IVSd: 1.3 cm LVIDs: 3.4 cm EDV(Teich): 142.2 ml LVPWd: 1.5 cm ESV(Teich): 48.8 ml EF(Teich): 65.7 % Doppler Measurements & Calculations MV E max linwodo: MV P1/2t max linwood: Ao V2 max: LV V1 max P.6 cm/sec 139.8 cm/sec 127.6 cm/sec 2.8 mmHg MV A max linwood: MV P1/2t: 87.1 msec Ao max P.5 mmHgLV V1 max: 71.6 cm/sec MVA(P1/2t): 2.5 cm2 84.4 cm/sec MV E/A: 1.5 MV dec slope: 470.1 cm/sec2 MV dec time: 0.23 sec PA V2 max: TR max linwood: MV P1/2t-pr_phl: 126.2 cm/sec 295.9 cm/sec 87.1 msec PA max P.4 mmHg TR max P.0 mmHg Left Ventricle The left ventricle is grossly normal size. There is mild to moderate concentric left ventricular hypertrophy. The left ventricular ejection fraction is preserved. Consider additional methods to assess LVEF such as MUGA scan, CTA heart, cardiac MRI, DARNELL, etc. if clinically indicated. LV diastolic function could not be adequately assessed. Regional wall motion abnormalities cannot be excluded due to limited visualization. Right Ventricle The right ventricle is mild to moderately dilated. Right ventricular function cannot be assessed due to poor image quality. Atria The right atrium is moderately dilated. The left atrium is moderately dilated. Interarterial septum not well visualized and not well dopplered. Cannot comment on ASD/PFO presence. Mitral Valve The mitral valve is not well visualized. There is no mitral valve stenosis. There is a trace amount of mitral regurgitation. Aortic Valve The aortic valve is not well visualized secondary to technical limitations. There is no aortic valve stenosis. No aortic regurgitation is present. Tricuspid Valve The tricuspid valve is not well visualized secondary to technical limitations. There is no tricuspid stenosis. There is a mild amount of tricuspid regurgitation. There is mild to moderate pulmonary hypertension by echo. Right ventricular systolic pressure is estimated to be elevated at 40-50mmHg. Pulmonic Valve The pulmonic valve is not well visualized. Great Vessels The aortic root is not well visualized. The inferior vena cava appeared normal and decreased > 50% with respiration (RAP 5-10 mmHg). Effusions There is no pericardial effusion. : JAMES MESSINA > Lucius Solitario
[2018-03-23] MEDS: HYDROCODONE/ACETAMINOPHEN 10-325 MG TABLET PO PRN ×3 (04:46→18:18)
[2018-03-23] MEDS: GABAPENTIN 300 MG CAPSULE PO SCH ×3 (05:44→21:52)
[2018-03-23] MEDS: HEPARIN SOD (PORCINE) 5,000 UNIT/ML 1 ML SYRINGE SUBCUT SCH ×3 (05:44→21:53)
[2018-03-23 06:19] LABS: ANION GAP 16 (5-19); BLOOD UREA NITROGEN 12 mg/dL (7-20); CALCIUM 9.6 mg/dL (8.4-10.2); CARBON DIOXIDE 28 mmol/L (22-30); CHLORIDE 100 mmol/L (98-107); GLUCOSE 133 mg/dL (75-110); POTASSIUM 4.5 mmol/L (3.6-5.0); SODIUM 143.8 mmol/L (137-145)
[2018-03-23 07:06] LABS: ABSOLUTE LYMPHOCYTES (AUTO) 0.9 10^3/uL (0.5-4.7); ABSOLUTE MONOCYTES (AUTO) 0.6 10^3/uL (0.1-1.4); ABSOLUTE NEUT (AUTO) 9.1 10^3/uL (1.7-8.2); BASOPHILS % (AUTO) 0.2 % (0-2); HEMATOCRIT 38.6 % (37.9-51.0); HEMOGLOBIN 12.9 g/dL (13.5-17.0); LYMPHOCYTES % (AUTO) 8.6 % (13-45); MEAN CORPUSCULAR HEMOGLOBIN 30.3 pg (27.0-33.4); MEAN CORPUSCULAR HGB CONC 33.5 g/dL (32.0-36.0); MEAN CORPUSCULAR VOLUME 91 fl (80-97); MONOCYTES % (AUTO) 5.9 % (3-13); RED BLOOD COUNT 4.27 10^6/uL (4.35-5.55); RED CELL DISTRIBUTION WIDTH 13.7 % (11.5-14.0); SEGMENTED NEUTROPHILS % (AUTO) 85.3 % (42-78); TOTAL CELLS COUNTED % (AUTO) 100 %; WHITE BLOOD COUNT 10.6 10^3/uL (4.0-10.5)
[2018-03-23 07:12] LABS: PLATELET COUNT 240 10^3/uL (150-450)
[2018-03-23] MEDS: PREDNISONE 20 MG TABLET PO SCH (09:12)
[2018-03-23] MEDS: DILTIAZEM HCL 240 MG CAPSULE.CR PO SCH ×2 (09:12→21:53)
[2018-03-23] MEDS: DRONEDARONE HYDROCHLORIDE 400 MG TABLET PO SCH ×2 (09:13→21:53)
--- NOTE | 2018-03-23 10:30 | EKG REPORT ---
SEVERITY:- BORDERLINE ECG - SINUS RHYTHM BORDERLINE T ABNORMALITIES, ANT-LAT LEADS : Confirmed by: Lucius Solitario 23-Mar-2018 10:30:15
--- NOTE | 2018-03-23 14:35 | PDOC PROGRESS REPORT ---
Subjective Progress Note for:: 03/23/18 Subjective:: The patient is a 53-year-old male with a past medical history of morbid obesity , opiate dependence due to chronic pain, and sleep apnea who was admitted 2017 for complaint of dyspnea and chest pain. Patient was seen on morning rounds. He was found resting in bed comfortably on room air. He did use the BiPAP overnight but spent most of the afternoon yesterday and all of today off of BiPAP. He reports continued shortness of breath and chest discomfort with inspirations, although states that he is feeling better today. He denies fever, chills, headache, dizziness, palpitations, abdominal pain, nausea and vomiting. He has no specific questions or concerns at this time. No concerns per nursing. Reason For Visit: ACUTE ON CHRONIC HYPERCAPNIC RESP FAILURE Physical Exam Vital Signs: Temp Pulse Resp BP Pulse Ox 97.8 F 62 14 143/60 H 96 03/23/18 07:37 03/23/18 08:00 03/23/18 08:00 03/23/18 07:37 03/23/18 08:00 Intake & Output 03/22/18 03/23/18 03/24/18 06:59 06:59 06:59 Intake Total 926 525 Output Total 640 Balance 286 525 Weight 173.2 kg 165.2 kg General appearance: PRESENT: no acute distress, morbidly obese, well-developed, well-nourished Head exam: PRESENT: atraumatic, normocephalic Eye exam: PRESENT: conjunctiva pink, EOMI, PERRLA. ABSENT: scleral icterus Ear exam: PRESENT: normal external ear exam Mouth exam: PRESENT: moist, tongue midline Neck exam: ABSENT: carotid bruit, JVD, lymphadenopathy, thyromegaly Respiratory exam: PRESENT: decreased breath sounds - Throughout; unable to auscultate breath sounds posteriorly-likely secondary to body habitus and poor respiratory effort. He is noted to have expiratory wheezing anteriorly., prolonged expiratory phas, symmetrical, wheezes. ABSENT: rales, rhonchi Cardiovascular exam: PRESENT: RRR, +S1, +S2. ABSENT: diastolic murmur, rubs, systolic murmur Pulses: PRESENT: normal dorsalis pedis pul Vascular exam: PRESENT: normal capillary refill GI/Abdominal exam: PRESENT: normal bowel sounds, soft. ABSENT: distended, guarding, mass, organolmegaly, rebound, tenderness Rectal exam: PRESENT: deferred Extremities exam: PRESENT: full ROM. ABSENT: calf tenderness, clubbing, pedal edema Neurological exam: PRESENT: alert, awake, oriented to person, oriented to place , oriented to time, oriented to situation, CN II-XII grossly intact. ABSENT: motor sensory deficit Psychiatric exam: PRESENT: appropriate affect, normal mood. ABSENT: homicidal ideation, suicidal ideation Skin exam: PRESENT: dry, intact, warm. ABSENT: cyanosis, rash Results Laboratory Results: 03/23/18 06:47 03/23/18 04:40 03/22/18 03/23/18 03/23/18 14:39 04:40 04:40 WBC Cancelled RBC Cancelled Hgb Cancelled Hct Cancelled MCV Cancelled MCH Cancelled MCHC Cancelled RDW Cancelled Plt Count Cancelled Seg Neutrophils % Cancelled Lymphocytes % Cancelled Monocytes % Cancelled Eosinophils % Cancelled Basophils % Cancelled Absolute Neutrophils Cancelled Absolute Lymphocytes Cancelled Absolute Monocytes Cancelled Absolute Eosinophils Cancelled Absolute Basophils Cancelled Sodium 143.8 Potassium 4.5 Chloride 100 Carbon Dioxide 28 Anion Gap 16 BUN 12 Creatinine 0.63 Est GFR ( Amer) > 60 Est GFR (Non-Af Amer) > 60 Glucose 133 H Calcium 9.6 Free T4 1.09 Free T3 pg/mL 2.74 L 03/23/18 06:47 WBC 10.6 H RBC 4.27 L Hgb 12.9 L Hct 38.6 MCV 91 MCH 30.3 MCHC 33.5 RDW 13.7 Plt Count 240 Seg Neutrophils % 85.3 H Lymphocytes % 8.6 L Monocytes % 5.9 Eosinophils % 0.0 Basophils % 0.2 Absolute Neutrophils 9.1 H Absolute Lymphocytes 0.9 Absolute Monocytes 0.6 Absolute Eosinophils 0.0 Absolute Basophils 0.0 Sodium Potassium Chloride Carbon Dioxide Anion Gap BUN Creatinine Est GFR ( Amer) Est GFR (Non-Af Amer) Glucose Calcium Free T4 Free T3 pg/mL 03/22/18 03/22/18 03/22/18 08:00 08:00 09:00 Creatine Kinase 52 L 52 L CK-MB (CK-2) 0.60 Troponin I < 0.012 NT-Pro-B Natriuret Pep 03/22/18 03/22/18 03/22/18 09:00 14:39 14:39 Creatine Kinase 47 L CK-MB (CK-2) 0.52 Troponin I 0.014 NT-Pro-B Natriuret Pep 1030 H Impressions: Chest X-Ray 03/21/18 22:42 IMPRESSION: No acute cardiopulmonary abnormality 2010 [employer]- All Rights Reserved Chest/Abdomen CTA 03/22/18 00:26 IMPRESSION: No acute pulmonary embolism. Assessment & Plan - Diagnosis (1) Hypercapnic respiratory failure Qualifiers: Chronicity: unspecified Qualified Code(s): J96.92 - Respiratory failure, unspecified with hypercapnia Is this a current diagnosis for this admission?: Yes Plan: Likely multifactorial secondary to morbid obesity and possibly underlying COPD. Patient presented with complaint of several weeks of progressively worsening dyspnea now associated with chest discomfort. Chemistry revealed an elevated bicarb to 35 and VBG demonstrated PCO2 of 64.5; indicating chronic hypercapnia., On arrival the patient was noted to be hypoxic on room air. ABG (03/22/18) on 4 L via nasal cannula demonstrated compensated respiratory acidosis with a PCO2 of 53 and bicarb of 35.3. Chest x-ray was negative for acute findings. CTA of the chest is benign. The patient is admitted to [facility] and monitored on continuous cardiac telemetry. Continue supplemental oxygen as needed to maintain oxygen saturations greater than 89%. Continue BiPAP nightly and as needed. As needed nebulizer treatments. Continue Prednisone 60 mg daily. Start daily Spiriva. Incentive spirometer and flutter valve to bedside. Peak flow meter ordered. Consider PFT and/or pulmonary consultation. (2) Atypical chest pain Is this a current diagnosis for this admission?: Yes Plan: The patient complains of intermittent, nonradiating, chest discomfort that worsens with deep breath and cough and is not exacerbated by physical activity. Likely secondary to #1, however, did develop AV nicolás reentry tachycardia. His chest discomfort could be rhythm awareness. Chest x-ray and CTA of the chest are benign. Serial troponins are negative x4. ProBNP is mildly elevated to 1030 Echocardiogram revealed " the left ejection fraction is preserved," mild to moderate LVH, moderately dilatated right and left atrium is, mild to moderate pulmonary hypertension, and an otherwise limited study secondary to body habitus. A1C 5.6%. We will continue to monitor on continuous cardiac telemetry. Cardiology has been consulted; medication management per their expertise, considering stress testing. Pt is currently on Multaq and Diltiazem. Will check lipid panel with a.m labs. (3) AVNRT (AV nicolás re-entry tachycardia) Is this a current diagnosis for this admission?: Yes Plan: TSH low at 0.28, Free T4 1.09, and Serum T3 2.74 Remaining evaluation and plan as above. Daily aspirin therapy. (4) Hypertension Qualifiers: Hypertension type: unspecified Qualified Code(s): I10 - Essential (primary ) hypertension Is this a current diagnosis for this admission?: Yes Plan: Improved. The patient denies history of hypertension and is not on home medications. He was noted to be hypertensive on arrival with blood pressures as high as 185/79. We will continue to monitor and adjust medications as necessary. Cardiac diet. Cardiology is consulted; medication adjustments per Cardiology. (5) Obstructive sleep apnea Is this a current diagnosis for this admission?: Yes Plan: Supplemental oxygen as needed to maintain oxygen saturations greater than 89%. BiPAP nightly and as needed. Discharge planning is consulted; may be able to assist in obtaining repair of home CPAP machine. (6) Opiate dependence Is this a current diagnosis for this admission?: Yes Plan: Opiate dependence with continuous use for chronic pain. We will continue his home medication regiment. (7) Morbid obesity with BMI of 50.0-59.9, adult Is this a current diagnosis for this admission?: Yes Plan: The patient has super morbid obesity with a BMI of 54. This is likely a primary factor in his chronic respiratory failure with hypercapnia. A1C 5.6% TSH low at 0.28 Dietary discretion is advised. He is placed on a cardiac and consistent carb diet. The dietetic technician registered is consulted. - Time Time Spent with patient: 15-24 minutes Medications reviewed and adjusted accordingly: Yes Anticipated discharge: Home Within: within 48 hours
[2018-03-23] MEDS: TAMSULOSIN HCL 0.4 MG CAP.SR.24H PO SCH (18:14)
--- NOTE | 2018-03-23 19:44 | PDOC PROGRESS REPORT ---
Subjective Progress Note for:: 03/23/18 Subjective:: Patient seems to be doing better with gradual improvement. Pt is denying any chest arm or neck discomfort. Patient denying any PND, orthopnea. Patient denied any sustained palpitations, dizziness, syncope, near syncope. Patient denying any fever chills. Patient denying any other significant discomfort. Patient is maintaining sinus rhythm. Review of systems: Rest review of systems negative. Medications: Medications have been reviewed. Reason For Visit: HYPERCAPNIC RESP FAILURE/ATYPICAL CHEST PAIN Physical Exam Vital Signs: Temp Pulse Resp BP Pulse Ox 98.7 F 67 18 131/63 H 93 03/23/18 15:14 03/23/18 15:14 03/23/18 15:14 03/23/18 15:14 03/23/18 15:14 Intake & Output 03/22/18 03/23/18 03/24/18 06:59 06:59 06:59 Intake Total 825 Balance 825 Exam: GENERAL: well-nourished and in no acute distress. Alert and oriented x3 HEAD: Atraumatic, normocephalic. EYES: EFRAIN, sclera anicteric, conjunctiva are normal. ENT: Moist mucous membranes. No oral ulcerations or bleeding gums noted. No obvious ear, nose or throat abnormalities noted. NECK: supple without lymphadenopathy. Trachea is central. No cervical or axillary lymphadenopathy noted. Carotids are 2+, JVD WNL LUNGS: Breath sounds clear bilaterally. No wheezes rales or rhonchi noted. No significant dullness noted on percussion. CHEST: Palpation of the chest wall shows no significant chest wall tenderness. 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 ABDOMEN: Soft, no significant tenderness appreciated, normoactive bowel sounds. No guarding, no rebound. No rigidity noted . No masses appreciated. EXTREMITIES: Pedal pulses are 1-2+, no calf tenderness noted. No clubbing or cyanosis. 1+ pedal edema noted NEUROLOGICAL: Focused neurological exam showed no significant neurologic deficit. Normal speech, no focal weakness appreciated. PSYCH: Normal mood, normal affect. Judgment and insight within normal limits. SKIN: No significant ecchymosis, skin is noted to be warm. MUSCULOSKELETAL EXAM: No significant acute joint swelling noted. Results EKG Comments: Shows sinus rhythm. Impressions: Chest X-Ray 03/21/18 22:42 IMPRESSION: No acute cardiopulmonary abnormality 2010 [employer]- All Rights Reserved Chest/Abdomen CTA 03/22/18 00:26 IMPRESSION: No acute pulmonary embolism. Assessment & Plan - Diagnosis (1) AVNRT (AV nicolás re-entry tachycardia) Is this a current diagnosis for this admission?: Yes (2) Chest pain Qualifiers: Chest pain type: unspecified Qualified Code(s): R07.9 - Chest pain, unspecified Is this a current diagnosis for this admission?: Yes (3) Hypertension Qualifiers: Hypertension type: unspecified Qualified Code(s): I10 - Essential (primary ) hypertension Is this a current diagnosis for this admission?: Yes (4) Morbid obesity with alveolar hypoventilation Is this a current diagnosis for this admission?: Yes (5) Obstructive sleep apnea Is this a current diagnosis for this admission?: Yes (6) Atrial flutter, paroxysmal Is this a current diagnosis for this admission?: Yes - Notes Notes: AVNRT: Patient felt to have AVNRT with long RP interval. Patient did respond to IV Cardizem. Recommend switch patient to p.o. Cardizem 240 mg p.o. twice daily may be needed for this kacey with large body weight. Subsequently multaq at 400 mg p.o twice daily was added as patient had some recurrences. Chest pain: Possibly atypical and related to tachycardia. May benefit from nuclear stress test. Agree with obtaining cardiac enzymes. Hypertension: Blood pressure goal should be 135/85 or less in this young gentleman. Morbid obesity with hypoventilation: Patient will benefit from nightly BiPAP therapy and also BiPAP therapy while sleeping. Obstructive sleep apnea: Patient will benefit from positive pressure noninvasive ventilation. Morbid obesity: Patient will benefit from aggressive weight loss. May consider belviq therapy, which at the safest cardiovascular profile. Paroxysmal atrial flutter: Patient EKG had shown a this to be present. Multaq was started. Currently maintaining sinus rhythm. Do not feel patient needs chronic anticoagulation except for DVT prophylaxis at this point. Patient would benefit immensely from aggressive weight loss. This was explained to the patient. - Time Time with patient: 15-25 minutes - More than 50% of the time spent coordinating care, discussing management plans with involved caregivers. Management plans discussed with involved personnels. Medical decision making was of moderate to high complexity, patient's has multiple comorbidities. Medications reviewed and adjusted accordingly: Yes
[2018-03-23] MEDS: ASPIRIN 81 MG TABLET, ENT COATED PO SCH (21:53)
[2018-03-24] MEDS: HYDROCODONE/ACETAMINOPHEN 10-325 MG TABLET PO PRN ×3 (03:12→16:15)
[2018-03-24 05:34] LABS: ANION GAP 11 (5-19); BLOOD UREA NITROGEN 14 mg/dL (7-20); CALCIUM 9.1 mg/dL (8.4-10.2); CARBON DIOXIDE 31 mmol/L (22-30); CHLORIDE 100 mmol/L (98-107); CHOLESTEROL 187.31 mg/dL (0-200); GLUCOSE 127 mg/dL (75-110); POTASSIUM 4.5 mmol/L (3.6-5.0); SODIUM 142.1 mmol/L (137-145); TRIGLYCERIDES 100 mg/dL (<150)
[2018-03-24 05:49] LABS: DIRECT LDL 115 mg/dL (<100)
[2018-03-24] MEDS: GABAPENTIN 300 MG CAPSULE PO SCH ×3 (05:50→21:09)
[2018-03-24] MEDS: HEPARIN SOD (PORCINE) 5,000 UNIT/ML 1 ML SYRINGE SUBCUT SCH ×3 (05:50→21:09)
[2018-03-24 06:27] LABS: HEMATOCRIT 36.1 % (37.9-51.0); HEMOGLOBIN 12.2 g/dL (13.5-17.0); MEAN CORPUSCULAR HEMOGLOBIN 30.5 pg (27.0-33.4); MEAN CORPUSCULAR HGB CONC 33.9 g/dL (32.0-36.0); MEAN CORPUSCULAR VOLUME 90 fl (80-97); RED BLOOD COUNT 4.01 10^6/uL (4.35-5.55); RED CELL DISTRIBUTION WIDTH 13.6 % (11.5-14.0); WHITE BLOOD COUNT 11.7 10^3/uL (4.0-10.5)
[2018-03-24 06:29] LABS: PLATELET COUNT 251 10^3/uL (150-450)
[2018-03-24] MEDS: DILTIAZEM HCL 240 MG CAPSULE.CR PO SCH ×2 (09:13→21:08)
[2018-03-24] MEDS: DRONEDARONE HYDROCHLORIDE 400 MG TABLET PO SCH ×2 (09:14→21:08)
[2018-03-24] MEDS: TIOTROPIUM BROMIDE DPI 5 CAP/KIT (18 MCG/CAP) IH SCH (09:14)
[2018-03-24] MEDS: PREDNISONE 20 MG TABLET PO SCH (09:14)
--- NOTE | 2018-03-24 09:53 | EKG REPORT ---
SEVERITY:- BORDERLINE ECG - SINUS RHYTHM CONSIDER ANTERIOR INFARCT : Confirmed by: Lucius Solitario 24-Mar-2018 09:52:52
--- NOTE | 2018-03-24 14:53 | PDOC PROGRESS REPORT ---
Subjective Progress Note for:: 03/24/18 Subjective:: No adverse events overnight. No new complaints. Vital signs been stable. No chest pain or shortness of breath. Rhythm has been sinus rhythm with a rate of 60s on the monitor. Reason For Visit: HYPERCAPNIC RESP FAILURE/ATYPICAL CHEST PAIN Physical Exam Vital Signs: Temp Pulse Resp BP Pulse Ox 98.0 F 61 22 H 128/62 H 93 03/24/18 12:05 03/24/18 12:05 03/24/18 12:05 03/24/18 12:05 03/24/18 12:05 Intake & Output 03/23/18 03/24/18 03/25/18 06:59 06:59 06:59 Intake Total 825 Balance 825 Weight 164.2 kg General appearance: PRESENT: no acute distress, cooperative, disheveled, morbidly obese Respiratory exam: PRESENT: clear to auscultation jess, unlabored. ABSENT: accessory muscle use, chest wall tenderness, crackles, rales, rhonchi, tachypnea , wheezes Cardiovascular exam: PRESENT: RRR, +S1, +S2. ABSENT: diastolic murmur, systolic murmur Vascular exam: PRESENT: normal capillary refill GI/Abdominal exam: PRESENT: normal bowel sounds, soft. ABSENT: distended, firm , guarding, rebound, tenderness Extremities exam: ABSENT: clubbing, joint swelling Musculoskeletal exam: PRESENT: full ROM. ABSENT: deformity, normal inspection Neurological exam: PRESENT: alert, awake, oriented to person, oriented to place , oriented to time Psychiatric exam: PRESENT: appropriate affect, normal mood Skin exam: PRESENT: dry, warm Results Laboratory Results: 03/24/18 06:19 03/24/18 04:33 03/24/18 03/24/18 03/24/18 04:33 04:33 06:19 WBC Cancelled 11.7 H RBC Cancelled 4.01 L Hgb Cancelled 12.2 L Hct Cancelled 36.1 L MCV Cancelled 90 MCH Cancelled 30.5 MCHC Cancelled 33.9 RDW Cancelled 13.6 Plt Count Cancelled 251 Sodium 142.1 Potassium 4.5 Chloride 100 Carbon Dioxide 31 H Anion Gap 11 BUN 14 Creatinine 0.66 Est GFR ( Amer) > 60 Est GFR (Non-Af Amer) > 60 Glucose 127 H Calcium 9.1 Triglycerides 100 Cholesterol 187.31 LDL Cholesterol Direct 115 H VLDL Cholesterol 20.0 HDL Cholesterol 57 Impressions: Chest X-Ray 03/21/18 22:42 IMPRESSION: No acute cardiopulmonary abnormality 2010 [employer]- All Rights Reserved Chest/Abdomen CTA 03/22/18 00:26 IMPRESSION: No acute pulmonary embolism. Assessment & Plan - Diagnosis (1) AVNRT (AV nicolás re-entry tachycardia) Is this a current diagnosis for this admission?: Yes Plan: Currently on Cardizem and Multaq. Cardiology is following. Seems to be tolerating it well at this time, his blood pressure is normal and his heart rates in the 60s in a sinus rhythm. Will defer to cardiology regarding any further adjustment of this current regimen. They are not recommending anticoagulation at this time. (2) Hypercapnic respiratory failure Qualifiers: Chronicity: unspecified Qualified Code(s): J96.92 - Respiratory failure, unspecified with hypercapnia Is this a current diagnosis for this admission?: Yes Plan: Resolved. Apparently his CPAP at home was broken. (3) Morbid obesity with BMI of 50.0-59.9, adult Is this a current diagnosis for this admission?: Yes Plan: Strongly encouraged lifestyle modification. (4) Obstructive sleep apnea Is this a current diagnosis for this admission?: Yes Plan: As noted above (5) Opiate dependence Qualifiers: Substance use status: with unspecified opioid-induced disorder Qualified Code(s): F11.29 - Opioid dependence with unspecified opioid-induced disorder Is this a current diagnosis for this admission?: Yes Plan: This probably contributed to his hypercapnic respiratory failure. - Time Time Spent with patient: 25-34 minutes
[2018-03-24] MEDS: TAMSULOSIN HCL 0.4 MG CAP.SR.24H PO SCH (17:48)
--- NOTE | 2018-03-24 20:30 | PDOC PROGRESS REPORT ---
Subjective Progress Note for:: 03/24/18 Subjective:: Patient seems to be doing better with gradual improvement. Patient now describes some chest discomfort during this admission off and on and prefers to have a nuclear stress test performed. Patient denying any PND, orthopnea. Patient denied any sustained palpitations, dizziness, syncope, near syncope. Patient denying any fever chills. Patient denying any other significant discomfort. Patient is maintaining sinus rhythm. Review of systems: Rest review of systems negative. Medications: Medications have been reviewed. Reason For Visit: HYPERCAPNIC RESP FAILURE/ATYPICAL CHEST PAIN Physical Exam Vital Signs: Temp Pulse Resp BP Pulse Ox 98.2 F 67 24 H 139/61 H 97 03/24/18 19:45 03/24/18 19:45 03/24/18 19:45 03/24/18 19:45 03/24/18 19:45 Intake & Output 03/23/18 03/24/18 03/25/18 06:59 06:59 06:59 Intake Total 825 1101 Balance 825 1101 Weight 164.2 kg Results Laboratory Results: 03/24/18 06:19 03/24/18 04:33 03/24/18 03/24/18 03/24/18 04:33 04:33 06:19 WBC Cancelled 11.7 H RBC Cancelled 4.01 L Hgb Cancelled 12.2 L Hct Cancelled 36.1 L MCV Cancelled 90 MCH Cancelled 30.5 MCHC Cancelled 33.9 RDW Cancelled 13.6 Plt Count Cancelled 251 Sodium 142.1 Potassium 4.5 Chloride 100 Carbon Dioxide 31 H Anion Gap 11 BUN 14 Creatinine 0.66 Est GFR ( Amer) > 60 Est GFR (Non-Af Amer) > 60 Glucose 127 H Calcium 9.1 Triglycerides 100 Cholesterol 187.31 LDL Cholesterol Direct 115 H VLDL Cholesterol 20.0 HDL Cholesterol 57 Impressions: Chest X-Ray 03/21/18 22:42 IMPRESSION: No acute cardiopulmonary abnormality 2010 [employer]- All Rights Reserved Chest/Abdomen CTA 03/22/18 00:26 IMPRESSION: No acute pulmonary embolism. Assessment & Plan - Diagnosis (1) AVNRT (AV nicolás re-entry tachycardia) Is this a current diagnosis for this admission?: Yes (2) Chest pain Qualifiers: Chest pain type: unspecified Qualified Code(s): R07.9 - Chest pain, unspecified Is this a current diagnosis for this admission?: Yes (3) Hypertension Qualifiers: Hypertension type: unspecified Qualified Code(s): I10 - Essential (primary ) hypertension Is this a current diagnosis for this admission?: Yes (4) Morbid obesity with alveolar hypoventilation Is this a current diagnosis for this admission?: Yes (5) Obstructive sleep apnea Is this a current diagnosis for this admission?: Yes (6) Atrial flutter, paroxysmal Is this a current diagnosis for this admission?: Yes - Notes Notes: No recurrence of cardiac dysrhythmia. Because of chest pain, a nuclear stress test is being scheduled. Because of patient weight, he might need 2-day protocol. AVNRT: Continue p.o. Cardizem 240 mg p.o. twice daily may be needed for this kacey with large body weight. Continue multaq at 400 mg p.o twice daily was added as patient had some recurrences. Chest pain: Possibly atypical and related to tachycardia. May benefit from nuclear stress test. Agree with obtaining cardiac enzymes. Hypertension: Blood pressure goal should be 135/85 or less in this young gentleman. Morbid obesity with hypoventilation: Patient will benefit from nightly BiPAP therapy and also BiPAP therapy while sleeping. Obstructive sleep apnea: Patient will benefit from positive pressure noninvasive ventilation. Morbid obesity: Patient will benefit from aggressive weight loss. May consider belviq therapy, which at the safest cardiovascular profile. Paroxysmal atrial flutter: Patient EKG had shown a this to be present. Multaq was started. Currently maintaining sinus rhythm. Do not feel patient needs chronic anticoagulation except for DVT prophylaxis at this point. Patient would benefit immensely from aggressive weight loss. This was explained to the patient. - Time Time with patient: Greater than 35 minutes - More than 50% of the time spent coordinating care, discussing management plans with involved caregivers. Management plans discussed with involved personnels. Medical decision making was of moderate to high complexity, patient's has multiple comorbidities. Medications reviewed and adjusted accordingly: Yes
[2018-03-24] MEDS: ASPIRIN 81 MG TABLET, ENT COATED PO SCH (21:09)
[2018-03-25] MEDS: HYDROCODONE/ACETAMINOPHEN 10-325 MG TABLET PO PRN ×4 (05:30→21:16)
[2018-03-25] MEDS: HEPARIN SOD (PORCINE) 5,000 UNIT/ML 1 ML SYRINGE SUBCUT SCH ×3 (05:30→21:17)
[2018-03-25] MEDS: GABAPENTIN 300 MG CAPSULE PO SCH ×3 (05:30→21:16)
[2018-03-25] MEDS: DRONEDARONE HYDROCHLORIDE 400 MG TABLET PO SCH ×2 (10:33→21:16)
[2018-03-25] MEDS: DILTIAZEM HCL 240 MG CAPSULE.CR PO SCH ×2 (10:33→21:16)
[2018-03-25] MEDS: TIOTROPIUM BROMIDE DPI 5 CAP/KIT (18 MCG/CAP) IH SCH (10:34)
[2018-03-25] MEDS: PREDNISONE 20 MG TABLET PO SCH (10:34)
[2018-03-25] MEDS ORDERED: PREDNISONE 20 MG TABLET PO SCH (12:26)
[2018-03-25] MEDS ORDERED: REGADENOSON INJ 0.4 MG/5 ML DISP.SYRIN IV ONE (14:00)
[2018-03-25] MEDS ORDERED: AMINOPHYLLINE INJ/PF 250 MG/10 ML SDV IV ONE (14:00)
[2018-03-25] MEDS: TAMSULOSIN HCL 0.4 MG CAP.SR.24H PO SCH (17:17)
--- NOTE | 2018-03-25 20:00 | PDOC PROGRESS REPORT ---
Subjective Progress Note for:: 03/25/18 Subjective:: Patient underwent the stress part of nuclear imaging, rest part to be performed tomorrow. Results of nuclear stress test to be available tomorrow afternoon. Patient seems to be doing better with gradual improvement. Patient now describes some chest discomfort during this admission off and on and prefers to have a nuclear stress test performed. Patient denying any PND, orthopnea. Patient denied any sustained palpitations, dizziness, syncope, near syncope. Patient denying any fever chills. Patient denying any other significant discomfort. Patient is maintaining sinus rhythm. Review of systems: Rest review of systems negative. Medications: Medications have been reviewed. Reason For Visit: HYPERCAPNIC RESP FAILURE/ATYPICAL CHEST PAIN Physical Exam Vital Signs: Temp Pulse Resp BP Pulse Ox 98.6 F 62 18 140/59 H 96 03/25/18 16:05 03/25/18 16:05 03/25/18 16:05 03/25/18 16:05 03/25/18 16:05 Intake & Output 03/24/18 03/25/18 03/26/18 06:59 06:59 06:59 Intake Total 825 1101 2835 Balance 825 1101 2835 Weight 164.2 kg 163.8 kg Results Laboratory Results: 03/24/18 06:19 03/24/18 04:33 Impressions: Chest X-Ray 03/21/18 22:42 IMPRESSION: No acute cardiopulmonary abnormality 2010 [employer]- All Rights Reserved Chest/Abdomen CTA 03/22/18 00:26 IMPRESSION: No acute pulmonary embolism. Assessment & Plan - Diagnosis (1) AVNRT (AV nicolás re-entry tachycardia) Is this a current diagnosis for this admission?: Yes (2) Chest pain Qualifiers: Chest pain type: unspecified Qualified Code(s): R07.9 - Chest pain, unspecified Is this a current diagnosis for this admission?: Yes (3) Hypertension Qualifiers: Hypertension type: unspecified Qualified Code(s): I10 - Essential (primary ) hypertension Is this a current diagnosis for this admission?: Yes (4) Morbid obesity with alveolar hypoventilation Is this a current diagnosis for this admission?: Yes (5) Obstructive sleep apnea Is this a current diagnosis for this admission?: Yes (6) Atrial flutter, paroxysmal Is this a current diagnosis for this admission?: Yes - Notes Notes: Patient has been noted to be stable. He did complete the stress part of the 2D imaging without any complications. Breast part to be performed tomorrow. Took this opportunity to discuss results of 2D echocardiogram, cardiac monitoring and cardiac rhythm problem with the patient. Also discussed importance of aggressive weight loss in detail. - Time Time with patient: 15-25 minutes - More than 50% of the time spent coordinating care, discussing management plans with involved caregivers. Management plans discussed with involved personnels. Medical decision making was of moderate to high complexity, patient's has multiple comorbidities. Medications reviewed and adjusted accordingly: Yes
--- NOTE | 2018-03-25 20:12 | PROGRESS NOTE E ---
Progress Note NAME: DUNCAN POLK : 1965 AGE: 53Y DATE: 03/25/2018 ROOM: 322 SUBJECTIVE: The patient is currently sitting up in bed. He states that he feels better today than when he came in. His breathing is much improved. The patient denies any nausea, vomiting, diarrhea, and shortness of breath. No chest pain, fevers, or chills. The patient has been afebrile. Blood pressure has been in good range, and the patient does not voice any other concerns at this time. REVIEW OF SYSTEMS: Review of systems is negative. MEDICATIONS: Reviewed. OBJECTIVE: GENERAL: The patient is a 53-year-old male who is awake, alert, and oriented to person, place, time, and situation. He is verbal and conversational, does not appear to be in any acute distress. VITAL SIGNS: Temperature 97.7, pulse 58, respirations 18, blood pressure 115/61, oxygen saturation 95% on 1 liter nasal cannula. SKIN: Warm and dry. No rashes, not diaphoretic. HEENT: Pupils equal, round, and reactive to light and accommodation. Conjunctivae pink. NECK: No JVP. CVS: Heart is regular with no murmur or rub. CHEST: Clear, symmetric, unlabored. ABDOMEN: Soft, nontender, nondistended. BACK: No CVA tenderness or sacral edema. EXTREMITIES: No clubbing, cyanosis, or edema. PSYCHIATRIC: Appropriate affect. Pleasant mood. DIAGNOSTICS: Lab values are as follows: Hematology done on 03/24/2018: WBC 11.7, hemoglobin 12.2, hematocrit 36.1, platelet count 251,000. Chemistry obtained on 03/24/2018: Sodium 142, potassium 4.5, chloride 100, carbon dioxide 31, BUN 14, creatinine 0.6, glucose 126, calcium. Cholesterol 187, LDL 115, VLDL 200, HDL 57. 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 I do appreciate Cardiology input on this. The patient's blood pressures have tolerated this. Further management per Cardiology. 2. Acute most likely on chronic hypercapnic respiratory failure. This has improved. Apparently, the patient wears CPAP at home. However, it is broken and he is not wearing it right now. 3. Morbid obesity with a BMI of 50-59. Strongly encouraged lifestyle modification. 4. Obstructive sleep apnea. Per above. 5. Opiate dependency, continuous. Will continue the patient's medication; however, this is most likely contributing to his hypercapnic respiratory failure, and the patient has been counseled regarding this. DISPOSITION: The patient is a full code. Pending the patient's symptomatology, diagnostic findings, and results of his stress test, will reevaluate in the a.m. for discharge. Time spent on this followup including physical examination, patient education, review of records is 25 minutes. DICTATING PHYSICIAN: VERA ULRICH NP [id number] PHY#: [id number] ID: [id number] JOB#: [id number] ACCT: [id number] cc: > MTDD
[2018-03-25] MEDS: ASPIRIN 81 MG TABLET, ENT COATED PO SCH (21:16)
[2018-03-26] MEDS: GABAPENTIN 300 MG CAPSULE PO SCH ×2 (05:29→13:41)
[2018-03-26] MEDS: HEPARIN SOD (PORCINE) 5,000 UNIT/ML 1 ML SYRINGE SUBCUT SCH ×2 (05:29→13:41)
[2018-03-26] MEDS: HYDROCODONE/ACETAMINOPHEN 10-325 MG TABLET PO PRN ×2 (08:22→15:18)
--- NOTE | 2018-03-26 08:54 | EKG REPORT ---
SEVERITY:- BORDERLINE ECG - SINUS OR ECTOPIC ATRIAL RHYTHM BORDERLINE R WAVE PROGRESSION, ANTERIOR LEADS : Confirmed by: Lucius Solitario 26-Mar-2018 08:53:51
[2018-03-26] MEDS: DILTIAZEM HCL 240 MG CAPSULE.CR PO SCH (13:37)
[2018-03-26] MEDS: TIOTROPIUM BROMIDE DPI 5 CAP/KIT (18 MCG/CAP) IH SCH (13:38)
[2018-03-26] MEDS: DRONEDARONE HYDROCHLORIDE 400 MG TABLET PO SCH (13:38)
--- NOTE | 2018-03-26 14:45 | DRAGON STRESS TEST REPORT ---
INTRAVENOUS LEXISCAN CARDIOLITE STRESS TEST USING SINGLE PHOTON EMMISION COMPUTERIZED TOMOGRAPHIC. DATE OF PROCEDURE: March 25 and March 26, 2018, INDICATION : Chest pain CARDIAC RISK FACTORS: Obesity, cardiac dysrhythmia, hypertension. RESTING EKG: Sinus rhythm without any baseline ST-T wave changes STRESS EKG: No significant ST segment changes noted with LexiScan bolus REASON FOR TERMINATION: Protocol. PROCEDURE REPORT: Baseline heart rate 55 beats per minute with blood pressure of 120/52. Patient had no significant complaints. Patient was bolused with Lexiscan 0.4 mg intravenously followed by saline bolus. Heart rate at 2 minutes post bolus 79 with a blood pressure of 119/50. 3 minutes post bolus heart rate 62 with blood pressure of 116/49. No significant EKG changes were noted. Patient had no significant complaints during the procedure or postprocedure. CONCLUSIONS: Normal EKG and hemodynamic response to IV LexiScan. NUCLEAR DATA: At rest the patient was given 37.2 millicuries of technetium 99 sestamibi injected intravenously. As per protocol rest gated SPECT images were obtained. On day of stress test, the patient was given intravenous LexiScan at a dose of 0.4 mg in 5 mL intravenously, followed by flush with normal saline. Subsequently the stress dose of 41.2 millicuries of technetium 99 sestamibi was injected intravenously. As per protocol stress gated images were obtained. NUCLEAR INTERPRETATION: Both raw and processed data were used for interpretation. Visual, qualitative, computer-generated quantitative data was used. There was good myocardial uptake of technetium compound. Motion artifact and soft tissue attenuations were noted. Increased visceral uptake was noted, this caused difficulty with inferior wall perfusion assessment. However no definite perfusion defect noted.. No definitive areas of transient perfusion defect noted, No definitive areas of fixed perfusion defect or scars noted. EKG gated imaging showed LV EF at 53 %, rest and stress gated EF similar visually. T. I D. ratio was 1.10. Lung heart ratio noted to be within normal limits 0.46. No significant extracardiac and abnormal radiotracer activities were noted. RV free wall uptake was noted to be WNL. IMPRESSION: Also refer to comments under nuclear interpretation. Also test results needs to be interpreted in the context of pretest probability. 1. No definitive areas of transient perfusion defect noted. Please note that due to significant visceral contamination, confidence about inferior wall perfusion is not high. 2. There is no definitive scintigraphic evidence of myocardial infarction/scar. 3. EKG gated imaging shows left ventricular ejection fraction of approx. 53 %. 4. Clinical correlation requested as worse disease and or balanced ischemia could be missed. In approximately 10% of the cases Lexiscan may not cause adequate vasodilatory stress. RECOMMENDATIONS: Aggressive risk factor modification and medical management. Further evaluation may be needed if continued symptoms or other high risk indicators are noted on clinical evaluation. May consider stress echo as an outpatient as inferior wall perfusion cannot be accurately commented upon. Clinical correlation with echocardiogram derived ejection fraction. Inability to exercise by itself can lead to increased cardiovascular event risks. Consider cardiology consultation and or follow-up if clinically indicated. I am available for cardiology evaluation and consultation if requested by the primary care pediatrician, unless patient already has a agriculture research director. Dr. Jamia Solitario. MRCP Board certified in cardiology and sleep medicine. Board certified in nuclear cardiology, adult echocardiography. SAADIA
[2018-03-26 16:16] VITALS: BP 134/65
--- NOTE | 2018-03-26 21:06 | DISCHARGE SUMMARY E ---
Discharge Summary NAME: DUNCAN POLK : 1965 AGE: 53Y ADMITTED: 03/23/2018 DISCHARGED: 03/26/2018 CODE STATUS: FULL CODE. PRIMARY CARE PHYSICIAN: Patient will be referred to the [facility]. CONSULTING BYPRODUCTS MAKER: Dr. Solitario. DISCHARGE DIAGNOSES: Includes: 1. AVNRT. 2. Acute on chronic hypercapnia with respiratory failure. 3. Obstructive sleep apnea. 4. Opiate dependency, continuous. 5. Morbid obesity with a BMI of 52.8. DISCHARGE MEDICATIONS: Include: 1. Aspirin 81 mg p.o. daily, 30 tablets, 0 refills. 2. Cardizem CD 240 mg p.o. q.12 hours, 60 tablets, 0 refills. 3. Multaq 400 mg p.o. q.12 hours, 60 tablets, 0 refills. 4. Neurontin 300 mg p.o. q.8 hours. 5. Bearden 10/325 one tablet p.o. q.6 hours p.r.n. 6. Prednisone 60 mg taper. 7. Flomax 0.4 mg p.o. daily, 30 tablets, 0 refills. 8. Spiriva 1 capsule inhalation daily. DIET: Heart healthy. ACTIVITY: As tolerated. CONDITION: Fair. DIAGNOSTICS: Lab values are as follows: Hematology obtained on 03/24/2018: WBCs are 11.7, hemoglobin is 21.2, hematocrit 36.1, platelet count is 351,000. Coagulation obtained on 03/21/2018: PT is 1.3, INR is 0.96. ABG obtained on 03/22/2018: PH of 7.44, pCO2 is 53, pO2 is 78, bicarb is 35. Chemistry obtained on 03/24/2018: Sodium is 147, potassium 4.5, chloride is 100, carbon dioxide 31, BUN 14, creatinine is 0.66. Glucose 127, calcium is 9.1. A1c is 5.6. Triglycerides 100, cholesterol 187, LDL 115, VLDL is 20, HDL is 57. TSH is 0.28, T4 is 1.09, T3 is 2.78. Magnesium is 1.8, bilirubin 0.5, AST 33, ALT is 47, alkaline phosphatase is 62. Troponin 0.012. BNP is 555. Urinalysis obtained on 03/22/2018: Color colorless, appearance clear, pH is 6.0, specific gravity is 1.006. Protein negative, glucose negative, ketones negative, occult blood negative, nitrite negative, bilirubin negative, urobilinogen is negative, WBC 0, mucous rare, ascorbic acid negative. Toxicology obtained on 03/22/2018: Positive for opiates. Chest x-ray obtained on 03/21/2018 revealed no acute cardiopulmonary abnormality. CT of the chest obtained on 03/22/2018 revealed no evidence of pulmonary emboli. Cardiolite stress test obtained on 03/25/2018 revealed no areas of reversible ischemia. PHYSICAL EXAMINATION: GENERAL: On examination, the patient is a well-developed, well-nourished 53-year-old male who is awake, alert, and oriented to person, place, time, and situation. He is verbal, conversational, does not appear to be in acute distress. VITAL SIGNS: Temperature is 97.4, pulse 57, respirations 16, blood pressure is 137/71, oxygen saturation is 96% on room air. SKIN: Warm and dry. No rash. He is not diaphoretic. HEENT: Pupils are reactive. No evidence of JVP. CARDIOVASCULAR SYSTEM: The patient is in normal sinus rhythm. CHEST: Symmetrical, unlabored. ABDOMEN: Obese. EXTREMITIES: There is no significant edema. PSYCHIATRIC: Appropriate affect, pleasant mood. HISTORY OF PRESENT ILLNESS: The patient is a 53-year-old male with a past medical history of morbid obesity, obstructive sleep apnea with questionable compliance with CPAP. The patient presented to the emergency department with a chief complaint of shortness of breath and chest pain. The patient noted 24 hours of worsening shortness of breath at rest associated with retrosternal chest pain 3 out of 5 intensity which is non-radiating pressure in nature exacerbate by deep breathing. Denies palpitations, nausea or vomiting. While in the emergency department, the patient was found to be hypoxic of 87 on room air, required oxygen. Chemistries were suggestive of chronic hypercapnia. The patient was referred to the hospitalist for admission and management. HOSPITAL COURSE: Patient was admitted to [facility]. During the patient's stay, he went into a rapid rate which was consistent with AVNRT. The patient was seen and evaluated with Dr. Solitario with Cardiology. It did take multiple agents to get the patient's rate under control including Cardizem as well as Multaq. However, the patient has responded to this. The patient did undergo Cardiolite stress test which was found to be not high risk. The patient was weaned from O2, was placed on CPAP at night with significant improvement of his chronic respiratory failure. The patient is on titrating steroid dose and is quite eager for discharge. DISCHARGE PLAN: The patient is to follow up with Dr. Solitario within 2-4 weeks for hospital followup. The patient will need reevaluation for CPAP. Time spent on this discharge including assessment, plan, physical examination, patient education, review of records and family meeting is 25 minutes. DICTATING PHYSICIAN: VERA ULRICH NP [id number] PHY#: [id number] ID: [id number] JOB#: [id number] ACCT: [id number] cc:Azul FLORENTINO NP > MTDD
--- NOTE | 2018-03-27 23:21 | PDOC PROGRESS REPORT ---
Subjective Progress Note for:: 03/26/18 Subjective:: Patient underwent the stress part of nuclear imaging, rest part to be performed tomorrow. Results of nuclear stress test to be available tomorrow afternoon. Patient seems to be doing better with gradual improvement. Patient now describes some chest discomfort during this admission off and on and prefers to have a nuclear stress test performed. Patient denying any PND, orthopnea. Patient denied any sustained palpitations, dizziness, syncope, near syncope. Patient denying any fever chills. Patient denying any other significant discomfort. Patient is maintaining sinus rhythm. Review of systems: Rest review of systems negative. Medications: Medications have been reviewed. Reason For Visit: HYPERCAPNIC RESP FAILURE/ATYPICAL CHEST PAIN Physical Exam Vital Signs: Temp Pulse Resp BP Pulse Ox 97.4 F 67 16 134/65 H 96 03/26/18 16:15 03/26/18 16:15 03/26/18 16:15 03/26/18 16:15 03/26/18 16:15 Intake & Output 03/25/18 03/26/18 03/27/18 06:59 06:59 06:59 Intake Total 1101 2835 600 Balance 1101 2835 600 Weight 163.8 kg 166.8 kg Exam: GENERAL: well-nourished and in no acute distress. Alert and oriented x3 HEAD: Atraumatic, normocephalic. EYES: EFRAIN, sclera anicteric, conjunctiva are normal. ENT: Moist mucous membranes. No oral ulcerations or bleeding gums noted. No obvious ear, nose or throat abnormalities noted. NECK: supple without lymphadenopathy. Trachea is central. No cervical or axillary lymphadenopathy noted. Carotids are 2+, JVD WNL LUNGS: Breath sounds clear bilaterally. No wheezes rales or rhonchi noted. No significant dullness noted on percussion. CHEST: Palpation of the chest wall shows no significant chest wall tenderness. 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 ABDOMEN: Soft, no significant tenderness appreciated, normoactive bowel sounds. No guarding, no rebound. No rigidity noted . No masses appreciated. EXTREMITIES: Pedal pulses are 1-2+, no calf tenderness noted. No clubbing or cyanosis. negative pedal edema noted NEUROLOGICAL: Focused neurological exam showed no significant neurologic deficit. Normal speech, no focal weakness appreciated. PSYCH: Normal mood, normal affect. Judgment and insight within normal limits. SKIN: No significant ecchymosis, skin is noted to be warm. MUSCULOSKELETAL EXAM: No significant acute joint swelling noted. Results Laboratory Results: 03/24/18 06:19 03/24/18 04:33 Impressions: Chest X-Ray 03/21/18 22:42 IMPRESSION: No acute cardiopulmonary abnormality 2010 [employer]- All Rights Reserved Chest/Abdomen CTA 03/22/18 00:26 IMPRESSION: No acute pulmonary embolism. Assessment & Plan - Diagnosis (1) AVNRT (AV nicolás re-entry tachycardia) Is this a current diagnosis for this admission?: Yes (2) Chest pain Qualifiers: Chest pain type: unspecified Qualified Code(s): R07.9 - Chest pain, unspecified Is this a current diagnosis for this admission?: Yes (3) Hypertension Qualifiers: Hypertension type: unspecified Qualified Code(s): I10 - Essential (primary ) hypertension Is this a current diagnosis for this admission?: Yes (4) Morbid obesity with alveolar hypoventilation Is this a current diagnosis for this admission?: Yes (5) Obstructive sleep apnea Is this a current diagnosis for this admission?: Yes (6) Atrial flutter, paroxysmal Is this a current diagnosis for this admission?: Yes - Notes Notes: Nuclear stress test negative for any ischemia. 2D echo results reviewed. Patient can follow-up with me in the office. Advised importance of weight loss. AVNRT: Continue patient on p.o. Cardizem 240 mg p.o. twice daily may be needed for this kacey with large body weight. Continue multaq at 400 p.o. twice daily, would only recommend 1 month therapy to address any myocyte memory. This is because patient was also felt to have some paroxysmal atrial flutter. However if patient cannot afford it, cannot be absolutely essential. Chest pain: Possibly atypical and related to tachycardia. Nuclear stress test was noted to be negative for any ischemia. Patient has been reassured. Hypertension: Blood pressure goal should be 135/85 or less in this young gentleman. Morbid obesity with hypoventilation: Patient will benefit from nightly BiPAP therapy and also BiPAP therapy while sleeping. Obstructive sleep apnea: Patient will benefit from positive pressure noninvasive ventilation. Morbid obesity: Patient will benefit from aggressive weight loss. May consider belviq therapy, which at the safest cardiovascular profile. Paroxysmal atrial flutter: Patient EKG had shown a this to be present. Continue multaq and Cardizem. Currently maintaining sinus rhythm. Do not feel patient needs chronic anticoagulation except for DVT prophylaxis at this point. Patient would benefit immensely from aggressive weight loss. This was explained to the patient. - Time Time with patient: Greater than 35 minutes - More than 50% of the time spent coordinating care, discussing management plans with involved caregivers. Management plans discussed with involved personnels. Medical decision making was of moderate to high complexity, patient's has multiple comorbidities. Medications reviewed and adjusted accordingly: Yes
== END 2018-03-26 16:51 | disposition home or self-care (01) | DRG 189 ==
LOC: ER 22:30 → INTOOBSV 03-22 03:14 → EH 03-22 03:14 → 4N 03-22 04:20 → ICU 03-22 08:49 → 3W 03-22 17:23 → OBSVTOIN 03-23 16:21
PROVIDERS: ADMIT Internal Medicine; ATTEND Internal Medicine
DX: J96.22 Acute and chronic respiratory failure with hypercapnia (principal); I48.92 Unspecified atrial flutter; I47.1 Supraventricular tachycardia; E66.2 Morbid (severe) obesity with alveolar hypoventilation; F11.20 Opioid dependence, uncomplicated; Z68.43 Body mass index [BMI] 50.0-59.9, adult; I10 Essential (primary) hypertension; F41.9 Anxiety disorder, unspecified; M54.9 Dorsalgia, unspecified; Z91.19 Patient's noncompliance with other medical treatment and regimen
CPT/HCPCS: 36415; 36600; 71045; 71275; 78452; 80048; 80053; 80061; 80307; 81001; 82550; 82553; 82803; 83036; 83735; 83880; 84439; 84443; 84481; 84484; 85025; 85027; 85610; 85730; 93005; 93010; 93017; 93306; 94640; 94660; 94667; 94668; 94761; 94799; 96374; 96375; 99285; A9500; G0378; J0280; J0360; J1644; J2270; J2785; J3010; J3490; J7030; J7512; J7620

== ENCOUNTER 2019-12-26 00:28 | Inpatient (IN) | payer SELFPAY ==
--- NOTE | 2019-12-26 00:34 | ER Document Report ---
ED General - General Stated Complaint: ALTERED MENTAL STATUS TRAVEL OUTSIDE OF THE [place] IN LAST 30 DAYS: No - HPI Notes: 54-year-old male arrives via EMS for altered mental status. Per EMS report he has had altered mental status for the past few days, family wanted him to come to the doctor but were unable to get him out of the home, therefore called EMS. EMS reports that upon arrival he had blue lips and pinpoint pupils, therefore they administered 4 mg of Narcan. They are unsure if it helped as he was also placed on a nonrebreather at that time. They report that he was initially hypotensive, after 600 cc of fluid his pressure was 92/60. Patient is obtunded and unable to participate in HPI. - Related Data Allergies/Adverse Reactions: No Known Allergies Allergy (Verified 03/21/18 22:33) Past Medical History - Social History Smoking Status: Unknown if Ever Smoked Family History: Hypertension, Other - CHF - Past Medical History Cardiac Medical History: Reports: Hx Hypertension Denies: Hx Coronary Artery Disease, Hx Heart Attack Pulmonary Medical History: Reports: Hx Sleep Apnea Denies: Hx Asthma, Hx Bronchitis, Hx COPD, Hx Pneumonia Neurological Medical History: Denies: Hx Cerebrovascular Accident, Hx Seizures Renal/ Medical History: Denies: Hx Peritoneal Dialysis Musculoskeletal Medical History: Denies Hx Arthritis Psychiatric Medical History: Reports: Hx Anxiety - Immunizations Hx Diphtheria, Pertussis, Tetanus Vaccination: Yes Review of Systems - Review of Systems -: Yes ROS unobtainable due to patient's medical condition Physical Exam - Vital signs Vitals: Resp BP Pulse Ox 24 H 141/59 H 94 12/26/19 00:30 12/26/19 00:30 12/26/19 00:30 Interpretation: Hypoxic. No: Hypotensive - General Notes: Obtunded male, morbidly obese, will intermittently awake and say phrases such as "I'm thirsty" - HEENT Head: Normocephalic, Atraumatic Eyes: No: Scleral icterus Extraocular movements intact: Yes Pupils: PERRL - Respiratory Respiratory status: Tachypnea Breath sounds: Decreased air movement, Rales - Cardiovascular Rhythm: Regular Heart sounds: Normal auscultation Murmur: Yes Normal capillary refill: Yes - Abdominal Inspection: Morbidly Obese Bowel sounds: Normal Tenderness: Nontender - Extremities General lower extremity: Edema - Neurological Stacy Coma Scale Eye Opening: To Voice [place] Coma Scale Verbal: Confused [place] Coma Scale Motor: Obeys Commands [place] Coma Scale Total: 13 Notes: Moves all extremities, face symmetric, speech is clear - Psychological Associated symptoms: Other - Unable to assess given medical condition - Skin Skin Temperature: Warm Course - Re-evaluation Re-evalutation: 54-year-old male arrives via EMS for altered mental status. Apparently there is some concern for narcotic overdose and he was administered Narcan. On exam he appears grossly fluid overloaded, he has rales and pitting edema to his lower extremities. He is hypoxic when taken off supplemental oxygen. Concern for CHF exacerbation versus acute pulmonary edema, he is not hypotensive here, pressure persistently in the 150s, therefore would not suspect cardiogenic shock at this time. Will obtain head CT to assure that no bleed is present though low suspicion. Also possible he will have CO2 retention, acting like CO2 narcosis. Will start patient on BiPAP 12/26/19 01:23 In room while respiratory initiated BiPAP. While off oxygen, he desaturated to 77%. Upon initiation of BiPAP 25/12, his sats recovered to the 90s. Appears to be tolerating BiPAP well. Will check ABG in about an hour. 12/26/19 01:41 has arrived, I updated her at bedside. She states that for the past month patient has been complaining of shortness of breath and has had leg swelling. He has not been able to see a doctor. He was otherwise his normal self y esterday, he went to work. However today he was extremely tired and complaining of increasing shortness of breath. She states that patient will periodically will take Vicodin, however she adamantly denies drug use. 12/26/19 01:50 Creatinine is elevated from last checked. Lactic is 2.1, there is evidence that he is perfusing fairly well. Elevated LFTs, concern for hepatic congestion. Markedly elevated BNP with associated troponin leak. 12/26/19 02:23 Soft blood pressure readings. I went into reassess my patient sleeping. BiPAP parameters look good, I do not suspect he is auto peeping right now. I woke up the patient and repeated a blood pressure, 107/66. 12/26/19 03:17 Per lab ABG results will be a pCO2 greater than 100, pH 7.2. Given that his bicarb is 40, I feel that this represents a partially compensated respiratory acidosis. Likely chronic CO2 retainer. He actually is improving while on BiPAP, his answers are starting to make more sense. I discussed admission with Dr. Lr. - Vital Signs Vital signs: Temp Pulse Resp BP Pulse Ox 24 H 141/59 H 95 12/26/19 01:20 12/26/19 00:30 12/26/19 01:20 - Laboratory Result Diagrams: 12/26/19 00:25 12/26/19 00:25 Laboratory results interpreted by me: 12/26/19 12/26/19 12/26/19 00:25 00:25 00:25 WBC 17.5 H RDW 16.8 H Seg Neuts % (Manual) 92 H Lymphocytes % (Manual) 5 L Abs Neuts (Manual) 16.1 H Carbonic Acid ABG pH ABG pCO2 ABG HCO3 ABG Total CO2 ABG O2 Saturation Chloride 93 L Carbon Dioxide 40 H* Creatinine 1.58 H Est GFR ( Amer) 56 L Est GFR (MDRD) Non-Af 46 L Glucose 161 H Phosphorus 7.2 H Magnesium 2.5 H AST 118 H ALT 96 H NT-Pro-B Natriuret Pep 7480 H Urine Protein Urine Glucose (UA) Urine Blood 12/26/19 12/26/19 01:54 02:40 WBC RDW Seg Neuts % (Manual) Lymphocytes % (Manual) Abs Neuts (Manual) Carbonic Acid 3.09 H ABG pH 7.20 L* ABG pCO2 102.7 H* ABG HCO3 39.1 H ABG Total CO2 42.2 H ABG O2 Saturation 92.3 L Chloride Carbon Dioxide Creatinine Est GFR ( Amer) Est GFR (MDRD) Non-Af Glucose Phosphorus Magnesium AST ALT NT-Pro-B Natriuret Pep Urine Protein 100 H Urine Glucose (UA) 50 H Urine Blood SMALL H - Diagnostic Test Radiology reviewed: Image reviewed, Reports reviewed - EKG Interpretation by Me Additional EKG results interpreted by me: 12/26/19 02:36 EKG is interpreted by me. Sinus rhythm with rate 86. QRS and QTc within normal limits. Nonspecific ST changes Critical Care Note - Critical Care Note Total time excluding time spent on procedures (mins): 35 Comments: Critical care time spent for hypoxic and hypercapnic respiratory failure, pulmonary edema, necessitating BiPAP. Time spent with direct care, resusc itating, reassessing, coordinating care. Discharge - Discharge Clinical Impression: Delirium, DEEPIKA (acute kidney injury) Pulmonary edema Qualifiers: Chronicity: acute Qualified Code(s): J81.0 - Acute pulmonary edema Respiratory failure with hypoxia and hypercapnia Qualifiers: Chronicity: acute Qualified Code(s): J96.01 - Acute respiratory failure with hypoxia Disposition: ADMITTED INPATIENT Admitting Provider: Be (Hospitalist) Unit Admitted: [facility]
[2019-12-26 00:45] LABS: HEMATOCRIT 44.5 % (37.9-51.0); HEMOGLOBIN 14.2 g/dL (13.5-17.0); MEAN CORPUSCULAR HEMOGLOBIN 29.2 pg (27.0-33.4); MEAN CORPUSCULAR VOLUME 92 fl (80-97); PLATELET COUNT 243 10^3/uL (150-450); RED BLOOD COUNT 4.87 10^6/uL (4.35-5.55); RED CELL DISTRIBUTION WIDTH 16.8 % (11.5-14.0); WHITE BLOOD COUNT 17.5 10^3/uL (4.0-10.5)
[2019-12-26 01:03] LABS: ALBUMIN 4.1 g/dL (3.5-5.0); ALCOHOL < 10 mg/dL (NONE DETECTED); ALKALINE PHOSPHATASE 79 U/L (38-126); ANION GAP 8 (5-19); ASPARTATE AMINO TRANSFERASE 118 U/L (17-59); BILIRUBIN,DIRECT 0.2 mg/dL (0.0-0.4); BILIRUBIN,TOTAL 0.7 mg/dL (0.2-1.3); BLOOD UREA NITROGEN 20 mg/dL (7-20); CALCIUM 8.6 mg/dL (8.4-10.2); CHLORIDE 93 mmol/L (98-107); GLUCOSE 161 mg/dL (75-110); PHOSPHORUS 7.2 mg/dL (2.5-4.5); TOTAL PROTEIN 7.4 g/dL (6.3-8.2)
[2019-12-26 01:26] LABS: CARBON DIOXIDE 40 mmol/L (22-30)
[2019-12-26 01:27] LABS: TROPONIN I 0.075 ng/mL
[2019-12-26 01:28] LABS: ABSOLUTE LYMPHOCYTES# (MANUAL) 0.9 10^3/uL (0.5-4.7); ABSOLUTE MONOCYTES # (MANUAL) 0.5 10^3/uL (0.1-1.4); BASOPHILS % (MANUAL) 0 % (0-2); EOSINOPHILS % (MANUAL) 0 % (0-6); LYMPHOCYTES % (MANUAL) 5 % (13-45); MONOCYTES % (MANUAL) 3 % (3-13); SEGMENTED NEUTROPHILS % (MAN) 92 % (42-78); TOTAL CELLS COUNTED 100
[2019-12-26 01:29] LABS: ANISOCYTOSIS 1+; PLATELET COMMENT ADEQUATE
[2019-12-26 01:30] LABS: OVALOCYTES SLIGHT; POLYCHROMASIA SLIGHT
[2019-12-26] MEDS ORDERED: FUROSEMIDE INJ/PF 20 MG/2 ML SDV IV ONE (01:31)
[2019-12-26] MEDS ORDERED: FUROSEMIDE INJ/PF 40 MG/4 ML SDV ONE (01:53)
--- NOTE | 2019-12-26 01:53 | RADIOLOGY REPORT (SQ) ---
EXAM DESCRIPTION: X-RAY CHEST- One View CLINICAL HISTORY: Shortness of breath COMPARISON: March 21, 2018 TECHNIQUE: Single view of the chest. FINDINGS: There are overlying EKG leads. Low lung volumes with compressive changes. There is blunting of the bilateral costophrenic angles with mild adjacent patchy opacities. There is enlargement of the cardiac silhouette. Osseous structures stable in appearance. IMPRESSION: Suggestion of small bilateral pleural effusions with nonspecific patchy opacities. Findings are in the setting of enlarged cardiac silhouette.
[2019-12-26 02:15] LABS: APPEARANCE,URINE CLOUDY; BILIRUBIN,URINE NEGATIVE (NEGATIVE); COLOR,URINE YELLOW; GLUCOSE, URINE 50 mg/dL (NEGATIVE); KETONES,URINE NEGATIVE (NEGATIVE); LEUKOCYTE ESTERASE,URINE NEGATIVE (NEGATIVE); NITRITE,URINE NEGATIVE (NEGATIVE); PROTEIN,URINE 100 mg/dL (NEGATIVE); URINE SPECIFIC GRAVITY 1.011; UROBILINOGEN,URINE NEGATIVE mg/dL (<2.0)
[2019-12-26 02:31] LABS: URINE AMPHETAMINES SCREEN NEGATIVE; URINE BARBITURATES SCREEN NEGATIVE; URINE BENZODIAZEPINES SCREEN NEGATIVE; URINE COCAINE SCREEN NEGATIVE; URINE MARIJUANA (THC) SCREEN NEGATIVE; URINE METHADONE SCREEN NEGATIVE; URINE PHENCYCLIDINE SCREEN NEGATIVE
[2019-12-26 02:48] LABS: ARTERIAL BLOOD BASE EXCESS 6.5 mmol/L; ARTERIAL BLOOD H2CO3 3.09 mmol/L (1.05-1.35); ARTERIAL BLOOD HCO3 39.1 mmol/L (20-24); ARTERIAL BLOOD O2 SATURATION 92.3 % (94-98); ARTERIAL BLOOD TOTAL CO2 42.2 mmol/L (23-27)
[2019-12-26 02:51] LABS: ARTERIAL BLOOD FIO2 75%
[2019-12-26 03:35] LABS: ARTERIAL BLOOD PCO2 102.7 mmHg (35-45)
--- NOTE | 2019-12-26 03:48 | RADIOLOGY REPORT (SQ) ---
CT head without contrast on 12/26/2019 at 3:04 AM CLINICAL INDICATION: Altered mental status TECHNIQUE: Multiple axial images are obtained throughout the head without the administration of contrast. This exam was performed according to our departmental dose-optimization program, which includes automated exposure control, adjustment of the mA and/or kV according to patient size and/or use of iterative reconstruction technique. Total DLP is 1150.19 mGy*cm. COMPARISON: None FINDINGS: There is no hydrocephalus. There is no CT evidence of acute infarct. There is no hemorrhage. There are no abnormal extra-axial fluid collections. There is no mass, mass effect or midline shift. No bony abnormality is noted. IMPRESSION: No acute intracranial abnormality.
--- NOTE | 2019-12-26 03:52 | PDOC H&P ---
History of Present Illness History of Present Illness: DUNCAN POLK is a 54 year old male with a history of possibly some sort of atrial arrhythmia, morbid obesity, and pulmonary hypertension based on his last echocardiogram which was about 2-1/2 years ago likely due to obstructive sleep apnea who presented by EMS. Apparently he had been complaining of worsening shortness of breath for couple of days. All of this information is obtained fr om the chart because the patient is not in any sort of condition to provide a history. Apparently he was encephalopathic whenever EMS showed up because they gave him some Narcan which elicited no response. In the ER he was found to have a severely elevated PCO2 on his ABG, and he had evidence of bibasilar pulmonary edema on chest x-ray. He also had an enlarged heart. He is not been noted to have had any fever recently or anything else that would lead us to suspect an infectious disease. Past Medical History Cardiac Medical History: Reports: Hypertension Denies: Coronary Artery Disease, Myocardial Infarction Pulmonary Medical History: Reports: Sleep Apnea Denies: Asthma, Bronchitis, Chronic Obstructive Pulmonary Disease (COPD), Pneumonia Neurological Medical History: Denies: Seizures Musculoskeltal Medical History: Denies: Arthritis Hematology: Denies: Anemia Social History Smoking Status: Unknown if Ever Smoked Frequency of Alcohol Use: None Drugs: None Family History Family History: Hypertension, Other - CHF Parental Family History Reviewed: No - Unable to obtain Children Family History Reviewed: No - Unable to obtain Sibling(s) Family History Reviewed.: No - Unable to obtain Medication/Allergy Home Medications: Gabapentin [Neurontin 300 mg Capsule] 300 mg PO Q8 03/22/18 Hydrocodone/Acetaminophen [Warren 10-325 mg Tablet] 1 tab PO Q6HP PRN 03/22/18 Aspirin [Ecotrin 81 mg EC Tablet] 81 mg PO QHS #30 tabec 03/26/18 Diltiazem HCl [Cardizem Cd 240 mg Capsule.cr] 240 mg PO Q12 #60 capsule.cr 03/26/18 Dronedarone Hydrochloride [Multaq 400 mg Tablet] 400 mg PO Q12 #60 tablet 03/26/18 Prednisone [Deltasone 10 mg Tablet] 10 mg PO ASDIR PRN #21 tablet 03/26/18 Tamsulosin HCl [Flomax 0.4 mg Cap.sr] 0.4 mg PO PCSUPPER #30 cap.sr.24h 03/26/18 Tiotropium Somers [Spiriva Handihaler 5 Cap/Kit (18 Mcg/Cap)] 1 cap IH DAILY #1 kit 03/26/18 Allergies/Adverse Reactions: No Known Allergies Allergy (Verified 03/21/18 22:33) Review of Systems ROS unobtainable: Due to mental status Physical Exam Vital Signs: Temp Pulse Resp BP Pulse Ox 24 H 141/59 H 95 12/26/19 01:20 12/26/19 00:30 12/26/19 01:20 Intake & Output 12/24/19 12/25/19 12/26/19 06:59 06:59 06:59 Weight 189.5 kg General appearance: PRESENT: disheveled, morbidly obese, severe distress, other - Terrible body odor Head exam: PRESENT: atraumatic, normocephalic Eye exam: PRESENT: PERRLA - Sluggish. ABSENT: conjunctival injection, nystagmus, scleral icterus Ear exam: PRESENT: normal external ear exam Mouth exam: PRESENT: dry mucosa, neck supple Neck exam: PRESENT: full ROM. ABSENT: carotid bruit, JVD - Could not adequately assess due to body habitus, lymphadenopathy, meningismus, tenderness, thyromegaly Respiratory exam: PRESENT: crackles - Bibasilar, decreased breath sounds, prolonged expiratory phas, symmetrical, unlabored. ABSENT: accessory muscle use, chest wall tenderness, rhonchi, tachypnea, wheezes Cardiovascular exam: PRESENT: RRR, +S1, +S2 Pulses: PRESENT: normal carotid pulses Vascular exam: PRESENT: normal capillary refill GI/Abdominal exam: PRESENT: normal bowel sounds, soft, other - Pendulous abdominal pannus. ABSENT: distended, guarding, rebound, tenderness Extremities exam: PRESENT: pedal edema, +1 edema. ABSENT: clubbing Musculoskeletal exam: PRESENT: normal inspection. ABSENT: deformity Neurological exam: PRESENT: altered Skin exam: PRESENT: dry, warm, other - He had what appeared to be intertrigo candidiasis in multiple sites, including under the skin folds of his chest, under his abdominal pannus, and in his groin Results Laboratory Results: 12/26/19 00:25 12/26/19 00:25 12/26/19 12/26/19 12/26/19 00:25 00:25 01:09 WBC 17.5 H RBC 4.87 Hgb 14.2 Hct 44.5 MCV 92 MCH 29.2 MCHC 32.0 RDW 16.8 H Plt Count 243 Seg Neutrophils % Not Reportable Carbonic Acid HCO3/H2CO3 Ratio ABG pH ABG pCO2 ABG pO2 ABG HCO3 ABG O2 Saturation ABG Base Excess FiO2 Sodium 140.6 Potassium 5.0 Chloride 93 L Carbon Dioxide 40 H* Anion Gap 8 BUN 20 Creatinine 1.58 H Est GFR ( Amer) 56 L Glucose 161 H Lactic Acid 2.1 Calcium 8.6 Phosphorus 7.2 H Magnesium 2.5 H Total Bilirubin 0.7 AST 118 H Alkaline Phosphatase 79 Total Protein 7.4 Albumin 4.1 Urine Color Urine Appearance Urine pH Ur Specific [place] Urine Protein Urine Glucose (UA) Urine Ketones Urine Blood Urine Nitrite Ur Leukocyte Esterase Urine WBC (Auto) Urine RBC (Auto) 12/26/19 12/26/19 01:54 02:40 WBC RBC Hgb Hct MCV MCH MCHC RDW Plt Count Seg Neutrophils % Carbonic Acid 3.09 H HCO3/H2CO3 Ratio 12:1 ABG pH 7.20 L* ABG pCO2 102.7 H* ABG pO2 81.0 ABG HCO3 39.1 H ABG O2 Saturation 92.3 L ABG Base Excess 6.5 FiO2 75% Sodium Potassium Chloride Carbon Dioxide Anion Gap BUN Creatinine Est GFR ( Amer) Glucose Lactic Acid Calcium Phosphorus Magnesium Total Bilirubin AST Alkaline Phosphatase Total Protein Albumin Urine Color YELLOW Urine Appearance CLOUDY Urine pH 5.0 Ur Specific [place] 1.011 Urine Protein 100 H Urine Glucose (UA) 50 H Urine Ketones NEGATIVE Urine Blood SMALL H Urine Nitrite NEGATIVE Ur Leukocyte Esterase NEGATIVE Urine WBC (Auto) 9 Urine RBC (Auto) 2 12/26/19 00:25 Troponin I 0.075 NT-Pro-B Natriuret Pep 7480 H Impressions: Chest X-Ray 12/26/19 00:35 IMPRESSION: Suggestion of small bilateral pleural effusions with nonspecific patchy opacities. Findings are in the setting of enlarged cardiac silhouette. Assessment and Plan - Diagnosis (1) Respiratory failure with hypoxia and hypercapnia Qualifiers: Chronicity: acute Qualified Code(s): J96.01 - Acute respiratory failure with hypoxia; J96.02 - Acute respiratory failure with hypercapnia Is this a current diagnosis for this admission?: Yes Plan: This may actually be acute on chronic. His PCO2, while not logged into the medical record at time of dictation, was reportedly greater than 100, while his pH was reportedly 7.2. He probably is a chronic CO2 retainer based on this information. We have him on BiPAP and will adjust his settings as needed based on his response per his ABG. We will avoid any sedating or mind altering drugs. (2) Metabolic encephalopathy Is this a current diagnosis for this admission?: Yes Plan: Secondary to #1 (3) Acute diastolic heart failure Is this a current diagnosis for this admission?: Yes Plan: His BNP was elevated, but I suspect he has an elevated BNP at baseline. The problem is that we do not know what his baseline actually is. He does show some evidence of some lower extremity edema, which may in part be chronic, but he also has evidence of some pulmonary edema on chest x-ray and on examination. His last echocardiogram was 2-1/2 years ago, but he had an enlarged heart and dilated left atrium, right atrium, and right ventricle along with an elevated RVSP. His EF at that time was noted to be around 50 to 55%. We will monitor his blood pressure and give him some IV Lasix. We will keep an eye on his renal function because his creatinine is elevated, and it was not elevated over 2 years ago. We do not have any recent data to tell whether or not he has normal kidney function at this time prior to his acute illness. (4) Morbid obesity with BMI of 60.0-69.9, adult Is this a current diagnosis for this admission?: Yes Plan: We will strongly encourage lifestyle modification (5) DEEPIKA (acute kidney injury) Is this a current diagnosis for this admission?: Yes Plan: This may actually be closer to his baseline. He was normal over 2 years ago, but we do not know what his renal function has been in the interim. We are diuresing him at this time so we will keep an eye on his renal function to make sure it does not deteriorate. (6) Candidiasis, intertrigo Is this a current diagnosis for this admission?: Yes Plan: Will apply topical antifungal - Time Time Spent with patient: 35 or more minutes Anticipated Discharge Disposition: Home with Home Health Anticipated Discharge Timeframe: Pending response to treatment - Inpatient Certification Based on my medical assessment, after consideration of the patient's comorbid ities, presenting symptoms, or acuity I expect that the services needed warrant INPATIENT care.: Yes I certify that my determination is in accordance with my understanding of Medicare's requirements for reasonable and necessary INPATIENT services [42 CFR 412.3e].: Yes Medical Necessity: Significant Comorbidiites Make Outpatient Treatment Too Risky, Need Close Monitoring Due to Risk of Patient Decompensation, Need For Continuous Telemetry Monitoring, Risk of Complication if Not Cared For in Hospital
[2019-12-26] MEDS: CLOTRIMAZOLE 1% CREAM 15 GM TP SCH ×3 (05:38→21:56)
[2019-12-26] MEDS ORDERED: FUROSEMIDE INJ/PF 20 MG/2 ML SDV IV SCH (06:00)
[2019-12-26] MEDS ORDERED: HEPARIN SOD (PORCINE) 5,000 UNIT/ML 1 ML VIAL SUBCUT SCH (06:00)
--- NOTE | 2019-12-26 08:27 | EKG REPORT ---
SEVERITY:- ABNORMAL ECG - SINUS RHYTHM RIGHT AXIS DEVIATION BORDERLINE R WAVE PROGRESSION, ANTERIOR LEADS NONSPECIFIC T ABNORMALITIES, ANT-LAT LEADS : Confirmed by: Eleazar Faith MD 26-Dec-2019 08:27:12
--- NOTE | 2019-12-26 09:14 | PDOC PROGRESS REPORT ---
Subjective Progress Note for:: 12/26/19 Subjective:: 54 year old male with a history of possibly some sort of atrial arrhythmia, morbid obesity, and pulmonary hypertension based on his last echocardiogram which was about 2-1/2 years ago likely due to obstructive sleep apnea who presented by EMS. Apparently he had been complaining of worsening shortness of breath for couple of days. All of this information is obtained from the chart because the patient is not in any sort of condition to provide a history. Apparently he was encephalopathic whenever EMS showed up because they gave him some Narcan which elicited no response. In the ER he was found to have a severely elevated PCO2 on his ABG, and he had evidence of bibasilar pulmonary edema on chest x-ray. He also had an enlarged heart. He is not been noted to have had any fever recently or anything else that would lead us to suspect an infectious disease. 12[id number]-old male admitted for altered mental status and has a history of sleep apnea, morbid obesity on BiPAP. He responding to painful stimuli. ABG done this morning shows PCO2 of 100. With PO2 of 81 and bicarb of 39. This is on 75% oxygen. Plan is to repeat the ABG later on today. Discussed the case with Dr. Alexandre his recommendation is not to provide too much oxygen supple mentation. Again his recommendation is to keep the oxygen supplementation rates as low as possible to keep the patient awake. Reason For Visit: ACUTE HYPERCAPNEIC RESPIRATORY FAILURE Physical Exam Vital Signs: Temp Pulse Resp BP Pulse Ox 97.3 F 79 28 H 101/76 99 12/26/19 05:00 12/26/19 05:07 12/26/19 08:42 12/26/19 05:00 12/26/19 08:42 Intake & Output 12/25/19 12/26/19 12/27/19 06:59 06:59 06:59 Output Total 350 Balance -350 Weight 191.4 kg General appearance: PRESENT: morbidly obese, other - Responding to painful stimuli. ABSENT: cooperative Head exam: PRESENT: atraumatic Eye exam: PRESENT: PERRLA Ear exam: PRESENT: normal external ear exam Teeth exam: PRESENT: poor dentation Neck exam: ABSENT: carotid bruit, JVD, lymphadenopathy, thyromegaly Respiratory exam: PRESENT: decreased breath sounds Cardiovascular exam: PRESENT: RRR. ABSENT: diastolic murmur, rubs, systolic murmur GI/Abdominal exam: PRESENT: normal bowel sounds, soft. ABSENT: distended, guarding, mass, organolmegaly, rebound, tenderness Rectal exam: PRESENT: deferred Extremities exam: PRESENT: full ROM. ABSENT: calf tenderness, clubbing, pedal edema Neurological exam: PRESENT: altered Skin exam: PRESENT: dry, intact, warm. ABSENT: cyanosis, rash Results Laboratory Results: 12/26/19 00:25 12/26/19 00:25 12/26/19 12/26/19 12/26/19 00:25 00:25 01:09 WBC 17.5 H RBC 4.87 Hgb 14.2 Hct 44.5 MCV 92 MCH 29.2 MCHC 32.0 RDW 16.8 H Plt Count 243 Seg Neutrophils % Not Reportable Carbonic Acid HCO3/H2CO3 Ratio ABG pH ABG pCO2 ABG pO2 ABG HCO3 ABG O2 Saturation ABG Base Excess FiO2 Sodium 140.6 Potassium 5.0 Chloride 93 L Carbon Dioxide 40 H* Anion Gap 8 BUN 20 Creatinine 1.58 H Est GFR ( Amer) 56 L Glucose 161 H Lactic Acid 2.1 Calcium 8.6 Phosphorus 7.2 H Magnesium 2.5 H Total Bilirubin 0.7 AST 118 H Alkaline Phosphatase 79 Total Protein 7.4 Albumin 4.1 Urine Color Urine Appearance Urine pH Ur Specific [place] Urine Protein Urine Glucose (UA) Urine Ketones Urine Blood Urine Nitrite Ur Leukocyte Esterase Urine WBC (Auto) Urine RBC (Auto) 12/26/19 12/26/19 01:54 02:40 WBC RBC Hgb Hct MCV MCH MCHC RDW Plt Count Seg Neutrophils % Carbonic Acid 3.09 H HCO3/H2CO3 Ratio 12:1 ABG pH 7.20 L* ABG pCO2 102.7 H* ABG pO2 81.0 ABG HCO3 39.1 H ABG O2 Saturation 92.3 L ABG Base Excess 6.5 FiO2 75% Sodium Potassium Chloride Carbon Dioxide Anion Gap BUN Creatinine Est GFR ( Amer) Glucose Lactic Acid Calcium Phosphorus Magnesium Total Bilirubin AST Alkaline Phosphatase Total Protein Albumin Urine Color YELLOW Urine Appearance CLOUDY Urine pH 5.0 Ur Specific [place] 1.011 Urine Protein 100 H Urine Glucose (UA) 50 H Urine Ketones NEGATIVE Urine Blood SMALL H Urine Nitrite NEGATIVE Ur Leukocyte Esterase NEGATIVE Urine WBC (Auto) 9 Urine RBC (Auto) 2 12/26/19 00:25 Troponin I 0.075 NT-Pro-B Natriuret Pep 7480 H Impressions: Chest X-Ray 12/26/19 00:35 IMPRESSION: Suggestion of small bilateral pleural effusions with nonspecific patchy opacities. Findings are in the setting of enlarged cardiac silhouette. Head CT 12/26/19 00:47 IMPRESSION: No acute intracranial abnormality. Assessment and Plan - Diagnosis (1) Metabolic encephalopathy Is this a current diagnosis for this admission?: Yes Plan: Secondary to #1 (2) Morbid obesity with BMI of 60.0-69.9, adult Is this a current diagnosis for this admission?: Yes Plan: We will strongly encourage lifestyle modification (3) Respiratory failure with hypoxia and hypercapnia Qualifiers: Chronicity: acute Qualified Code(s): J96.01 - Acute respiratory failure with hypoxia; J96.02 - Acute respiratory failure with hypercapnia Is this a current diagnosis for this admission?: Yes Plan: This may actually be acute on chronic. His PCO2, while not logged into the medical record at time of dictation, was reportedly greater than 100, while his pH was reportedly 7.2. He probably is a chronic CO2 retainer based on this information. We have him on BiPAP and will adjust his settings as needed based on his response per his ABG. We will avoid any sedating or mind altering drugs. 12/26/2019-patient admitted with acute on chronic respiratory failure with hypoxia and hypercapnia. Presently on BiPAP. ABG shows pH of 7.2/PCO2 100/PO2 80. With a bicarb of 39. Patient is responding to painful stimuli waking up try to swing it has and going back to sleep. Discussed the case with Dr. Alexandre his recommendation is to keep oxygen supplementations at lowest possible flow. Plan is to repeat the ABG around 1030. Started on IV Solu- Medrol 40 mg every 8 hours, started on DuoNeb nebulizations every 4 as needed. Overall prognosis poor. (4) Acute diastolic heart failure Is this a current diagnosis for this admission?: Yes Plan: His BNP was elevated, but I suspect he has an elevated BNP at baseline. The problem is that we do not know what his baseline actually is. He does show some evidence of some lower extremity edema, which may in part be chronic, but he also has evidence of some pulmonary edema on chest x-ray and on examination. His last echocardiogram was 2-1/2 years ago, but he had an enlarged heart and dilated left atrium, right atrium, and right ventricle along with an elevated RVSP. His EF at that time was noted to be around 50 to 55%. We will monitor his blood pressure and give him some IV Lasix. We will keep an eye on his renal function because his creatinine is elevated, and it was not elevated over 2 years ago. We do not have any recent data to tell whether or not he has normal kidney function at this time prior to his acute illness. (5) DEEPIKA (acute kidney injury) Is this a current diagnosis for this admission?: Yes Plan: This may actually be closer to his baseline. He was normal over 2 years ago, but we do not know what his renal function has been in the interim. We are diuresing him at this time so we will keep an eye on his renal function to make sure it does not deteriorate. - Time Anticipated Discharge Disposition: Home, Self Care Anticipated Discharge Timeframe: within 72 hours
[2019-12-26] MEDS ORDERED: FUROSEMIDE INJ/PF 40 MG/4 ML SDV IV ONE ×2 (09:45→12:15)
[2019-12-26] MEDS: PANTOPRAZOLE SODIUM 40 MG VIAL IV SCH ×2 (09:53→21:56)
[2019-12-26] MEDS: IPRATROPIUM/ALBUTEROL 0.5-2.5 MG/3 ML AMPUL NEB PRN ×2 (09:58→19:59)
[2019-12-26 10:05] LABS: ARTERIAL BLOOD BASE EXCESS 13.5 mmol/L; ARTERIAL BLOOD FIO2 35%; ARTERIAL BLOOD H2CO3 2.87 mmol/L (1.05-1.35); ARTERIAL BLOOD HCO3 44.9 mmol/L (20-24); ARTERIAL BLOOD O2 SATURATION 90.7 % (94-98); ARTERIAL BLOOD PH 7.29 (7.35-7.45); ARTERIAL BLOOD PO2 69.6 mmHg (80-100); ARTERIAL BLOOD TOTAL CO2 47.8 mmol/L (23-27)
[2019-12-26 10:07] LABS: ARTERIAL BLOOD PCO2 95.2 mmHg (35-45)
[2019-12-26] MEDS ORDERED: (PENDING PHARMACY ID) (Albuterol Sulfate 2 PUFF) IH PRN (10:36)
[2019-12-26 12:32] LABS: ARTERIAL BLOOD BASE EXCESS 16.7 mmol/L; ARTERIAL BLOOD H2CO3 3.71 mmol/L (1.05-1.35); ARTERIAL BLOOD HCO3 50.8 mmol/L (20-24); ARTERIAL BLOOD O2 SATURATION 93.9 % (94-98); ARTERIAL BLOOD PH 7.23 (7.35-7.45); ARTERIAL BLOOD PO2 87.5 mmHg (80-100); ARTERIAL BLOOD TOTAL CO2 54.6 mmol/L (23-27)
[2019-12-26 12:33] LABS: ARTERIAL BLOOD FIO2 45%; ARTERIAL BLOOD PCO2 123.3 mmHg (35-45)
[2019-12-26] MEDS ORDERED: METHYLPREDNISOLONE INJ 40 MG/1 ML SDV IV SCH (14:00)
[2019-12-26 14:15] LABS: ARTERIAL BLOOD BASE EXCESS 17.2 mmol/L; ARTERIAL BLOOD H2CO3 2.73 mmol/L (1.05-1.35); ARTERIAL BLOOD HCO3 48.2 mmol/L (20-24); ARTERIAL BLOOD O2 SATURATION 88.4 % (94-98); ARTERIAL BLOOD PH 7.34 (7.35-7.45)
[2019-12-26 14:16] LABS: ARTERIAL BLOOD FIO2 45%
[2019-12-26 14:17] LABS: ARTERIAL BLOOD PCO2 90.6 mmHg (35-45)
--- NOTE | 2019-12-26 14:52 | Progress Note ---
Provider Note Provider Note: 12/26/1950-59-cxvn-old male with history of morbid obesity with BMI of more than 64, pulmonary hypertension, obstructive sleep apnea underlying diastolic heart failure admitted for altered mental status and PCO2 more than 100. He was placed on BiPAP. We did a multiple ABGs during the hospital stay because of the altered mental status. The ABG at 9:52 AM this morning with pH of 7.29/PCO2 of 95/PO2 of 69 with oxygen saturation 90%. Repeat ABG at 12:00 done because of change in mental status patient is profusely sweating and diaphoretic. That ABG shows pH of 7.23/PCO2 123/PO2 of 87%. This is on BiPAP settings of 31/10 with respiratory of 16, oxygen saturation of 45% tidal volume of 590. After discussion with Dr. sanchez the rate was increased to 24. Repeat ABG was done with respiratory rate of 24/oxygen saturation of 45%/ / the ABG came back with pH of 7.34, PCO2 of 90.6, PO2 61 bicarb of 48% with oxygen saturation of 88%. And Tylenol from last night total of 180 mg of Lasix was given patient put out 2.[address] Sanchez came and evaluated the patient at bedside patient is responding to painful sternal rubs waking up and referring back to sleep. Dr. sanchez agreed to take the patient to the ICU because the patient indicated that he wants everything to be done at this time. Again patient is going to ICU for acute on chronic respiratory failure with hypoxia and hypercapnia. On BiPAP at this time. Patient has underlying unknown cardiac arrhythmia is taking diltiazem at home. Echocardiogram that was done 2 years ago indicate diastolic heart failure. Patient's BMI is more than 64. Patient came in with a WBC count of 17,500 afebrile. Blood cultures were requested patient was started on IV cefepime 1 g every 12 hours at this time. Patient is also receiving Lasix 40 mg IV twice a day. He was started on IV Solu-Medrol 40 mg every 8 hours. He is getting DuoNeb nebulizations every 4 as needed. Presently he is on treatment dose of Lovenox.
[2019-12-26] MEDS ORDERED: ASPIRIN 325 MG TABLET PO ONE (16:00)
[2019-12-26] MEDS ORDERED: HEPARIN SODIUM,PORCINE/D5W 25,000 UNIT/250 ML RTUINJ IV PRN (16:13)
[2019-12-26 16:29] LABS: ABSOLUTE LYMPHOCYTES (AUTO) 0.8 10^3/uL (0.5-4.7); ABSOLUTE MONOCYTES (AUTO) 0.6 10^3/uL (0.1-1.4); ABSOLUTE NEUT (AUTO) 13.5 10^3/uL (1.7-8.2); BASOPHILS % (AUTO) 0.3 % (0-2); EOSINOPHILS % (AUTO) 0.1 % (0-6); HEMATOCRIT 45.1 % (37.9-51.0); HEMOGLOBIN 14.1 g/dL (13.5-17.0); LYMPHOCYTES % (AUTO) 5.1 % (13-45); MEAN CORPUSCULAR HGB CONC 31.2 g/dL (32.0-36.0); MEAN CORPUSCULAR VOLUME 90 fl (80-97); MONOCYTES % (AUTO) 4.1 % (3-13); RED BLOOD COUNT 5.02 10^6/uL (4.35-5.55); RED CELL DISTRIBUTION WIDTH 16.5 % (11.5-14.0); SEGMENTED NEUTROPHILS % (AUTO) 90.4 % (42-78); TOTAL CELLS COUNTED % (AUTO) 100 %; WHITE BLOOD COUNT 14.9 10^3/uL (4.0-10.5)
[2019-12-26 16:47] LABS: PLATELET COUNT 143 10^3/uL (150-450)
[2019-12-26 17:07] LABS: INTERNATIONAL RATION (INR) 1.12; PROTHROMBIN TIME 14.6 SEC (11.4-15.4)
[2019-12-26 17:08] LABS: PARTIAL THROMBOPLASTIN TIME 28.2 SEC (23.5-35.8)
--- NOTE | 2019-12-26 17:46 | CRITICAL CARE ADMISSION REPORT ---
HPI Date:: 12/26/19 Time:: 15:44 Reason for ICU Reason:: Acute hypoxemic and hypercapnic respiratory failure Admission Date/Time & PCP: Admission Date/Time: 12/26/19 03:36 Primary Care Provider: BROOKLYNN MUNGUIA MD HPI: This morbidly obese 54-year-old male is seen in consultation at the request of Dr. Mic Chaudhari for recommendations on further evaluation and management of acute hypoxemic and hypercapnic respiratory failure. The patient is seen on IMCU, where he has been placed on BiPAP support for hypoxia. Initial ABG at 0 240 showed a pH 7.2, PCO2 103, PO2 81 on BiPAP with FiO2 75%. The patient was managed with BiPAP adjustment, administration of Lasix, bronchodilators with improvement in his oxygenation and ventilation. ABG at 1407 showed pH 7.34, PCO2 91, PO2 61 on FiO2 45%, again on BiPAP 22/6. The patient was transferred to the ICU after nursing staff in the IMCU reported that they were unable of providing care for this patient. He initially presented earlier in the day (12/25) to the emergency department with altered mental status and worsening shortness of breath over the past couple of days. - Diagnosis/Plan (1) Acute hypercapnic respiratory failure Is this a current diagnosis for this admission?: Yes Plan: The patient is arousable. He is agreeable to endotracheal intubation mechanical ventilatory support, as needed. He does agree to be full code. was at the bedside to witness. He is on an empiric cefepime, although chest x-ray shows no acute pulmonary process. He is also on empiric steroids, presumably for aspiration of obstructive lung disease; however, based on physical exam, his hypercapnia is likely secondary to metabolic encephalopathy and airway edema. Stop steroids. (2) Acute myocardial infarction Qualifiers: Myocardial infarction type: unspecified Involved coronary artery: unspecified coronary artery Qualified Code(s): I21.9 - Acute myocardial infarction, unspecified Is this a current diagnosis for this admission?: Yes Plan: Stat twelve-lead EKG. Start aspirin. Start beta-carlos alberto. Start heparin infusion. (3) Acute decompensated heart failure Is this a current diagnosis for this admission?: Yes Plan: At this point, the patient's elevated A-a gradient must be addressed with diuretics. Titrate BiPAP settings by mentation and ABG results. (4) Morbid obesity with BMI of 60.0-69.9, adult Is this a current diagnosis for this admission?: Yes (5) Noncompliance Is this a current diagnosis for this admission?: Yes (6) Acute kidney injury Is this a current diagnosis for this admission?: Yes Plan: We will withhold RUSTY-I/ARB at this time. (7) Candidiasis Is this a current diagnosis for this admission?: Yes Plan: Nystatin powder Past Medical History Cardiac Medical History: Reports: Hypertension Denies: Coronary Artery Disease, Myocardial Infarction Pulmonary Medical History: Reports: Sleep Apnea Denies: Asthma, Bronchitis, Chronic Obstructive Pulmonary Disease (COPD), Pneumonia Neurological Medical History: Denies: Seizures Musculoskeltal Medical History: Denies: Arthritis Psychiatric Medical History: Denies: Depression Hematology: Denies: Anemia Social/Family History - Social History Smoking Status: Unknown if Ever Smoked Frequency of Alcohol Use: None Hx Recreational Drug Use: No Drugs: None - Medication/Allergies Home Medications: Hydrocodone/Acetaminophen [[place] 10-325 mg Tablet] 1 tab PO Q6HP PRN 03/22/18 Albuterol Sulfate [Proair Hfa Inhalation Aerosol 8.5 gm Mdi] 2 puff IH Q4HP PRN 12/26/19 Diltiazem HCl [Cartia Xt] 240 mg PO DAILY 12/26/19 Furosemide [Lasix 20 mg Tablet] 20 mg PO DAILY 12/26/19 Tamsulosin HCl [Flomax 0.4 mg Cap.sr] 0.4 mg PO DAILY 12/26/19 Allergies/Adverse Reactions: No Known Allergies Allergy (Verified 03/21/18 22:33) Physical Exam Vital Signs: Temp Pulse Resp BP Pulse Ox 98.1 F 72 24 H 92/48 L 98 12/26/19 08:20 12/26/19 09:58 12/26/19 14:40 12/26/19 08:20 12/26/19 12:19 Intake & Output 12/25/19 12/26/19 12/27/19 06:59 06:59 06:59 Intake Total 0 Output Total 350 3700 Balance -350 -3700 Weight 191.4 kg Weight/Height Weight 191.4 kg Height 1.73 m Laboratory/Radiographs Laboratory Results: 12/26/19 00:25 12/26/19 00:25 12/26/19 12/26/19 12/26/19 00:25 00:25 01:09 WBC 17.5 H RBC 4.87 Hgb 14.2 Hct 44.5 MCV 92 MCH 29.2 MCHC 32.0 RDW 16.8 H Plt Count 243 Seg Neutrophils % Not Reportable Carbonic Acid HCO3/H2CO3 Ratio ABG pH ABG pCO2 ABG pO2 ABG HCO3 ABG O2 Saturation ABG Base Excess FiO2 Sodium 140.6 Potassium 5.0 Chloride 93 L Carbon Dioxide 40 H* Anion Gap 8 BUN 20 Creatinine 1.58 H Est GFR ( Amer) 56 L Glucose 161 H Lactic Acid 2.1 Calcium 8.6 Phosphorus 7.2 H Magnesium 2.5 H Total Bilirubin 0.7 AST 118 H Alkaline Phosphatase 79 Total Protein 7.4 Albumin 4.1 Urine Color Urine Appearance Urine pH Ur Specific [place] Urine Protein Urine Glucose (UA) Urine Ketones Urine Blood Urine Nitrite Ur Leukocyte Esterase Urine WBC (Auto) Urine RBC (Auto) 12/26/19 12/26/19 12/26/19 01:54 02:40 09:52 WBC RBC Hgb Hct MCV MCH MCHC RDW Plt Count Seg Neutrophils % Carbonic Acid 3.09 H 2.87 H HCO3/H2CO3 Ratio 12:1 15:1 ABG pH 7.20 L* 7.29 L ABG pCO2 102.7 H* 95.2 H* ABG pO2 81.0 69.6 L ABG HCO3 39.1 H 44.9 H ABG O2 Saturation 92.3 L 90.7 L ABG Base Excess 6.5 13.5 FiO2 75% 35% Sodium Potassium Chloride Carbon Dioxide Anion Gap BUN Creatinine Est GFR ( Amer) Glucose Lactic Acid Calcium Phosphorus Magnesium Total Bilirubin AST Alkaline Phosphatase Total Protein Albumin Urine Color YELLOW Urine Appearance CLOUDY Urine pH 5.0 Ur Specific [place] 1.011 Urine Protein 100 H Urine Glucose (UA) 50 H Urine Ketones NEGATIVE Urine Blood SMALL H Urine Nitrite NEGATIVE Ur Leukocyte Esterase NEGATIVE Urine WBC (Auto) 9 Urine RBC (Auto) 2 12/26/19 12/26/19 12:10 14:07 WBC RBC Hgb Hct MCV MCH MCHC RDW Plt Count Seg Neutrophils % Carbonic Acid 3.71 H 2.73 H HCO3/H2CO3 Ratio 13:1 17:1 ABG pH 7.23 L 7.34 L ABG pCO2 123.3 H* 90.6 H* ABG pO2 87.5 61.0 L ABG HCO3 50.8 H 48.2 H ABG O2 Saturation 93.9 L 88.4 L ABG Base Excess 16.7 17.2 FiO2 45% 45% Sodium Potassium Chloride Carbon Dioxide Anion Gap BUN Creatinine Est GFR ( Amer) Glucose Lactic Acid Calcium Phosphorus Magnesium Total Bilirubin AST Alkaline Phosphatase Total Protein Albumin Urine Color Urine Appearance Urine pH Ur Specific [place] Urine Protein Urine Glucose (UA) Urine Ketones Urine Blood Urine Nitrite Ur Leukocyte Esterase Urine WBC (Auto) Urine RBC (Auto) 12/26/19 12/26/19 12/26/19 00:25 13:16 14:20 Troponin I 0.075 Cancelled 0.795 NT-Pro-B Natriuret Pep 7480 H Impressions: Chest X-Ray 12/26/19 00:35 IMPRESSION: Suggestion of small bilateral pleural effusions with nonspecific patchy opacities. Findings are in the setting of enlarged cardiac silhouette. Head CT 12/26/19 00:47 IMPRESSION: No acute intracranial abnormality. Critical Time Critical Time (minutes): 90 -: The care of a critically ill patient is dynamic. This note represents a static moment in the admission process. Orders and treatments may be given simultaneously and urgently, and time is not risk control representative of the treatment process. This patient requires Critical Care secondary to life threatening organ or limb dysfunction. Without Critical Care services, the patient is at risk for increased mortality and morbidity.
[2019-12-26] MEDS: METOPROLOL TARTRATE PF/INJ 5 MG/5 ML SDV IV SCH ×2 (18:07→22:01)
[2019-12-26 18:48] LABS: APPEARANCE,URINE SLIGHTLY-CLOUDY; BILIRUBIN,URINE NEGATIVE (NEGATIVE); COLOR,URINE YELLOW; GLUCOSE, URINE NEGATIVE (NEGATIVE); KETONES,URINE NEGATIVE (NEGATIVE); LEUKOCYTE ESTERASE,URINE MODERATE (NEGATIVE); NITRITE,URINE NEGATIVE (NEGATIVE); PROTEIN,URINE NEGATIVE (NEGATIVE); URINE SPECIFIC GRAVITY 1.013; UROBILINOGEN,URINE NEGATIVE mg/dL (<2.0)
[2019-12-26 18:54] LABS: ARTERIAL BLOOD BASE EXCESS 12.7 mmol/L; ARTERIAL BLOOD FIO2 40%; ARTERIAL BLOOD H2CO3 2.02 mmol/L (1.05-1.35); ARTERIAL BLOOD HCO3 40.6 mmol/L (20-24); ARTERIAL BLOOD O2 SATURATION 93.6 % (94-98); ARTERIAL BLOOD PCO2 67.1 mmHg (35-45); ARTERIAL BLOOD PO2 70.6 mmHg (80-100); ARTERIAL BLOOD TOTAL CO2 42.7 mmol/L (23-27)
[2019-12-26] MEDS: NYSTATIN TOPICAL POWDER 15 GM TP SCH (19:12)
[2019-12-26] MEDS ORDERED: HEPARIN SOD (PORCINE) 1,000 UNIT/ML 10 ML VIAL IV PRN (19:14)
--- NOTE | 2019-12-26 19:51 | XCELERA REPORT ---
[address] [address] Transthoracic Echocardiogram Report Name: DUNCAN POLK Age: 54 yrs Gender: Male : 1965 Patient Status: Inpatient Patient Location: ICU^[facility]^A Study Date: 12/26/2019 05:13 PM Height: 68 in Weight: 421 lb BSA: 2.8 m2 Procedure: A two-dimensional transthoracic echocardiogram with color flow and Doppler was performed. Study Quality: Poor. Very poor endocardial visualisation. The apical views were not obtained due to 2 chamber views obtained.. Reason For Study: Elevated Troponin / Heart Failure History: Elevated Troponin / Heart Failure. Ordering Physician: SUJATHA JUAN Performed By: Leanna Jay Interpretation Summary Very poor endocardial visualisation. The left ventricle is grossly normal size. Probably no LVH.Cannot comment on apical anterior,apical inferior ,basal inferior and basal anterior wall contraction ,since they were not seen.The mid LV badillo and the rest of LV badillo contract nomally.LVEF is low normal at 55% probably. Right atrium not well visualized secondary to technical limitations The left atrium is mildly dilated. There is no evidence of mitral valve prolapse. There is no mitral valve stenosis. There is a trace to mild amount of mitral regurgitation There is no aortic valve stenosis No aortic regurgitation is present. There is no tricuspid stenosis. There is a mild to moderate amount of tricuspid regurgitation There is moderate pulmonary hypertension by echo RVSP is 53 mm of Hg , with RA mean of at least 20 . There is no pulmonic valvular stenosis. The aortic root is not well visualized. The inferior vena cava appeared dilated and did not change with respiration (RAP > 20 mmHg) There is no pericardial effusion. MMode/2D Measurements & Calculations RVDd: 3.9 cm LVIDd: 5.7 cm FS: 25.4 % Ao root diam: 3.0 cm IVSd: 1.4 cm LVIDs: 4.2 cm EDV(Teich): 159.2 ml Ao root area: 7.1 cm2 LVPWd: 1.0 cm ESV(Teich): 80.6 ml LA dimension: 4.1 cm EF(Teich): 49.4 % Doppler Measurements & Calculations MV E max linwood: MV P1/2t max linwood: Ao V2 max: LV V1 max P.2 cm/sec 90.1 cm/sec 121.6 cm/sec 5.0 mmHg MV A max linwood: MV P1/2t: 95.2 msec Ao max PG: LV V1 max: 55.5 cm/sec MVA(P1/2t): 2.3 cm2 5.9 mmHg 112.1 cm/sec MV E/A: 1.4 MV dec slope: 277.2 cm/sec2 MV dec time: 0.19 sec PA V2 max: PI end-d linwood: TR max linwood: MV P1/2t-pr_phl: 76.4 cm/sec 141.6 cm/sec 286.0 cm/sec 95.2 msec PA max PG: TR max P.3 mmHg 32.7 mmHg Left Ventricle The left ventricle is grossly normal size. Probably no LVH.Cannot comment on apical anterior,apical inferior ,basal inferior and basal anterior wall contraction ,since they were not seen.The mid LV badillo and the rest of LV badillo contract nomally.LVEF is low normal at 55% probably. Doppler measurements suggest normal left ventricular diastolic function. Right Ventricle The right ventricle is not well visualized secondary to technical limitations. Atria Right atrium not well visualized secondary to technical limitations. The left atrium is mildly dilated. Mitral Valve There is no evidence of mitral valve prolapse. There is no mitral valve stenosis. There is a trace to mild amount of mitral regurgitation. Aortic Valve There is no aortic valve stenosis. No aortic regurgitation is present. Tricuspid Valve There is no tricuspid stenosis. There is a mild to moderate amount of tricuspid regurgitation. There is moderate pulmonary hypertension by echo. RVSP is 53 mm of Hg , with RA mean of at least 20 . Pulmonic Valve There is no pulmonic valvular stenosis. There is a trace amount of pulmonic regurgitation. Great Vessels The aortic root is not well visualized. The inferior vena cava appeared dilated and did not change with respiration (RAP > 20 mmHg). Effusions There is no pericardial effusion. : SUJATHA JUAN Lakshmi
--- NOTE | 2019-12-26 20:11 | EKG REPORT ---
SEVERITY:- BORDERLINE ECG - SINUS RHYTHM BORDERLINE T ABNORMALITIES, ANTERIOR LEADS : Confirmed by: Eleazar Faith MD 26-Dec-2019 20:10:21
[2019-12-26] MEDS: FUROSEMIDE INJ/PF 40 MG/4 ML SDV IV SCH (21:56)
[2019-12-26] MEDS: CEFEPIME 1 GM/D5W RTU 1 GM/50 ML RTUPB IV SCH (21:58)
[2019-12-26] MEDS ORDERED: ENOXAPARIN SODIUM INJ 150 MG/1 ML DISP.SYRIN SUBCUT SCH (22:00)
[2019-12-27 02:46] LABS: HEMATOCRIT 39.1 % (37.9-51.0); HEMOGLOBIN 12.5 g/dL (13.5-17.0); MEAN CORPUSCULAR HEMOGLOBIN 28.1 pg (27.0-33.4); MEAN CORPUSCULAR VOLUME 88 fl (80-97); PLATELET COUNT 252 10^3/uL (150-450); RED BLOOD COUNT 4.46 10^6/uL (4.35-5.55); RED CELL DISTRIBUTION WIDTH 16.5 % (11.5-14.0)
[2019-12-27] MEDS: METOPROLOL TARTRATE PF/INJ 5 MG/5 ML SDV IV SCH ×3 (04:35→19:50)
[2019-12-27 06:09] LABS: BLOOD UREA NITROGEN 25 mg/dL (7-20); CALCIUM 7.9 mg/dL (8.4-10.2); CHLORIDE 84 mmol/L (98-107); GLUCOSE 212 mg/dL (75-110); POTASSIUM 4.3 mmol/L (3.6-5.0)
[2019-12-27 06:12] LABS: ANION GAP 9 (5-19)
[2019-12-27 06:15] LABS: CARBON DIOXIDE 42 mmol/L (22-30)
[2019-12-27 06:21] LABS: ARTERIAL BLOOD BASE EXCESS 15.4 mmol/L; ARTERIAL BLOOD HCO3 45.6 mmol/L (20-24); ARTERIAL BLOOD O2 SATURATION 96.1 % (94-98); ARTERIAL BLOOD PH 7.36 (7.35-7.45); ARTERIAL BLOOD PO2 90.4 mmHg (80-100); ARTERIAL BLOOD TOTAL CO2 48.2 mmol/L (23-27)
[2019-12-27 06:22] LABS: ARTERIAL BLOOD FIO2 6L
--- NOTE | 2019-12-27 08:18 | RADIOLOGY REPORT (SQ) ---
EXAM DESCRIPTION: CHEST SINGLE VIEW IMAGES COMPLETED DATE/TIME: 12/27/2019 6:10 am REASON FOR STUDY: dyspnea, pulmonary edema COMPARISON: 12/26/2019 NUMBER OF VIEWS: One view. TECHNIQUE: Single frontal radiographic image of the chest acquired. LIMITATIONS: None. FINDINGS: LUNGS AND PLEURA: Stable appearance. MEDIASTINUM AND HILAR STRUCTURES: Stable heart size and mediastinal structures. HEART AND VASCULAR STRUCTURES: Stable appearance. BONES: No acute findings. HARDWARE: None in the chest. OTHER: No other significant finding. IMPRESSION: STABLE APPEARANCE OF THE CHEST. TECHNICAL DOCUMENTATION: JOB ID: [id number] [employer]- All Rights Reserved Reading location - IP/workstation name: [email or web address]
[2019-12-27] MEDS: IPRATROPIUM/ALBUTEROL 0.5-2.5 MG/3 ML AMPUL NEB PRN (08:25)
[2019-12-27] MEDS ORDERED: (PENDING PHARMACY ID) (Diltiazem Hcl [Cartia Xt] 240 MG) PO SCH (10:00)
[2019-12-27] MEDS ORDERED: DILTIAZEM HCL 240 MG CAPSULE.CR PO SCH (10:00)
[2019-12-27] MEDS ORDERED: TAMSULOSIN HCL 0.4 MG CAP.SR.24H PO SCH (10:00)
[2019-12-27] MEDS: CEFEPIME 1 GM/D5W RTU 1 GM/50 ML RTUPB IV SCH ×2 (10:13→22:00)
[2019-12-27] MEDS: FUROSEMIDE INJ/PF 40 MG/4 ML SDV IV SCH ×2 (10:13→22:03)
[2019-12-27] MEDS: PANTOPRAZOLE SODIUM 40 MG VIAL IV SCH (10:13)
[2019-12-27] MEDS: NYSTATIN TOPICAL POWDER 15 GM TP SCH ×2 (10:14→20:04)
[2019-12-27] MEDS: ASPIRIN 81 MG TABLET, CHEWABLE PO SCH (10:14)
[2019-12-27] MEDS ORDERED: HYDROCODONE/ACETAMINOPHEN 10-325 MG TABLET PO PRN (11:18)
--- NOTE | 2019-12-27 11:32 | PDOC CRITICAL CARE PROG REPORT ---
General Date:: 12/27/19 ICU Day:: 2 Hospital Day:: 2 Events in the past 12 to 24 Hours:: More awake ABG normalized pH. Review of systems relevant to events:: Pulmonary, CV Reason for ICU Addmission:: Acute hypoxemic and hypercapnic respiratory failure, improved, never intubated. - Medications: Medications reviewed and adjusted accordingly: Yes Vasopressors:: None Sedation:: None Physical Exam Vital Signs: Temp Pulse Resp BP Pulse Ox 98.9 F 80 21 H 136/81 H 96 12/27/19 08:00 12/27/19 08:25 12/27/19 08:45 12/27/19 08:01 12/27/19 08:45 Intake & Output 12/26/19 12/27/19 12/28/19 06:59 06:59 06:59 Intake Total 250 143 Output Total 350 6140 Balance -350 -2268 143 Weight 191.4 kg 188.6 kg Weight/Height Weight 188.6 kg Height 5 ft 8 in General appearance: PRESENT: no acute distress, cooperative, morbidly obese Head exam: PRESENT: atraumatic, normocephalic Eye exam: PRESENT: conjunctiva pink, EOMI, PERRLA. ABSENT: scleral icterus Ear exam: PRESENT: normal external ear exam Mouth exam: PRESENT: moist, tongue midline Respiratory exam: PRESENT: clear to auscultation jess, decreased breath sounds. ABSENT: rales, rhonchi, wheezes Cardiovascular exam: PRESENT: RRR. ABSENT: diastolic murmur, rubs, systolic murmur GI/Abdominal exam: PRESENT: normal bowel sounds, soft. ABSENT: distended, gua rding, mass, organolmegaly, rebound, tenderness Rectal exam: PRESENT: deferred Gentrourinary exam: PRESENT: indwelling catheter Extremities exam: PRESENT: full ROM. ABSENT: calf tenderness, clubbing, pedal edema Musculoskeletal exam: PRESENT: normal inspection Neurological exam: PRESENT: alert, awake, oriented to person, oriented to place, oriented to time, oriented to situation, CN II-XII grossly intact. ABSENT: motor sensory deficit Skin exam: PRESENT: dry, intact, warm. ABSENT: cyanosis, rash Laboratory/Radiographs Laboratory Results: 12/27/19 02:30 12/27/19 02:30 12/26/19 12/26/19 12/26/19 12:10 14:07 14:20 WBC 14.9 H RBC 5.02 Hgb 14.1 Hct 45.1 MCV 90 MCH 28.0 MCHC 31.2 L RDW 16.5 H Plt Count 143 L Seg Neutrophils % 90.4 H Carbonic Acid 3.71 H 2.73 H HCO3/H2CO3 Ratio 13:1 17:1 ABG pH 7.23 L 7.34 L ABG pCO2 123.3 H* 90.6 H* ABG pO2 87.5 61.0 L ABG HCO3 50.8 H 48.2 H ABG O2 Saturation 93.9 L 88.4 L ABG Base Excess 16.7 17.2 FiO2 45% 45% Sodium Potassium Chloride Carbon Dioxide Anion Gap BUN Creatinine Est GFR ( Amer) Glucose Calcium Magnesium Urine Color Urine Appearance Urine pH Ur Specific [place] Urine Protein Urine Glucose (UA) Urine Ketones Urine Blood Urine Nitrite Ur Leukocyte Esterase Urine WBC (Auto) Urine RBC (Auto) 12/26/19 12/26/19 12/27/19 18:00 18:35 02:30 WBC RBC Hgb Hct MCV MCH MCHC RDW Plt Count Seg Neutrophils % Carbonic Acid 2.02 H HCO3/H2CO3 Ratio 20:1 ABG pH 7.40 ABG pCO2 67.1 H ABG pO2 70.6 L ABG HCO3 40.6 H ABG O2 Saturation 93.6 L ABG Base Excess 12.7 FiO2 40% Sodium 134.5 L Potassium 4.3 Chloride 84 L Carbon Dioxide 42 H* Anion Gap 9 BUN 25 H Creatinine 0.99 Est GFR ( Amer) > 60 Glucose 212 H Calcium 7.9 L Magnesium 2.0 Urine Color YELLOW Urine Appearance SLIGHTLY-CLOUDY Urine pH 5.0 Ur Specific [place] 1.013 Urine Protein NEGATIVE Urine Glucose (UA) NEGATIVE Urine Ketones NEGATIVE Urine Blood SMALL H Urine Nitrite NEGATIVE Ur Leukocyte Esterase MODERATE H Urine WBC (Auto) 13 Urine RBC (Auto) 3 12/27/19 12/27/19 02:30 05:40 WBC 17.0 H RBC 4.46 Hgb 12.5 L Hct 39.1 MCV 88 MCH 28.1 MCHC 32.0 RDW 16.5 H Plt Count 252 Seg Neutrophils % Carbonic Acid 2.50 H HCO3/H2CO3 Ratio 18:1 ABG pH 7.36 ABG pCO2 83.0 H* ABG pO2 90.4 ABG HCO3 45.6 H ABG O2 Saturation 96.1 ABG Base Excess 15.4 FiO2 6L Sodium Potassium Chloride Carbon Dioxide Anion Gap BUN Creatinine Est GFR ( Amer) Glucose Calcium Magnesium Urine Color Urine Appearance Urine pH Ur Specific [place] Urine Protein Urine Glucose (UA) Urine Ketones Urine Blood Urine Nitrite Ur Leukocyte Esterase Urine WBC (Auto) Urine RBC (Auto) 12/26/19 12/26/19 12/26/19 00:25 13:16 14:20 Troponin I 0.075 Cancelled 0.795 NT-Pro-B Natriuret Pep 7480 H 12/26/19 12/27/19 12/27/19 20:15 02:30 02:30 Troponin I 0.672 0.603 NT-Pro-B Natriuret Pep 3510 H 12/27/19 08:22 Troponin I 0.494 NT-Pro-B Natriuret Pep Impressions: Head CT 12/26/19 00:47 IMPRESSION: No acute intracranial abnormality. Chest X-Ray 12/27/19 05:00 IMPRESSION: STABLE APPEARANCE OF THE CHEST. EKG: NSR, borderline T-wave abnormalities All labs, radiographs, diagnostic studies and EKGs were personally reviewed: Yes In addition, reports of radiographic and diagnostic studies were read: Yes Assessment and Plan - Diagnosis (1) Hypoventilation associated with obesity Is this a current diagnosis for this admission?: Yes Plan: This is presumed based on his presentation and obesity. He is fully awake, alert and oriented. However he does have periods where is is sleepy during the day and may well benefit from intermittent bipap. He needs it each night. When he is comfortably awake and off bipap I believe he can go home. (2) Acute diastolic heart failure Is this a current diagnosis for this admission?: Yes Plan: This may have been exacerbated by JASON and even negative pressure pulmonary edema. Be careful his lasix does not dry him to the point of dehydration. (3) Acute hypercapnic respiratory failure Is this a current diagnosis for this admission?: Yes Plan: Resolved with a normal pH. However his bicarb and pCO2 are elavated, likely chronically. (4) Morbid obesity with BMI of 60.0-69.9, adult Is this a current diagnosis for this admission?: Yes Plan: Chronic (5) Respiratory failure with hypoxia and hypercapnia Qualifiers: Chronicity: acute Qualified Code(s): J96.01 - Acute respiratory failure with hypoxia; J96.02 - Acute respiratory failure with hypercapnia Is this a current diagnosis for this admission?: Yes Plan: Resolved at this point (6) Obstructive sleep apnea Is this a current diagnosis for this admission?: Yes Plan: Keep on CPAP/Bipap at night. Plan Summary: Transfer back to [facility]. When off bipap during the day and on CPAP at night discharge home. Critical Time Critical Time (minutes): 30 Level of Care: CU Anticipated discharge: Home Anticipated DC Timeframe: within 48 hours -: 1. The care of a critical patient is a dynamic process. This note is a sales representative groceries synopsis but static in nature. The timeframe for treatments given in order is not necessarily the actual time these treatments may have been done. 2. This patient requires critical care secondary to ongoing requirements for therapy not offered or safe outside the critical care environment. Transfer to a lower level of care will result in altered life or limb morbidity and mortality. 3. Multidisciplinary rounds completed. 4. ABCDE bundle addressed.
[2019-12-27] MEDS: CLOTRIMAZOLE 1% CREAM 15 GM TP SCH ×2 (14:00→22:04)
[2019-12-27] MEDS: HYDROCODONE/ACETAMINOPHEN 5-325 MG TABLET PO PRN (19:54)
[2019-12-27] MEDS: ENOXAPARIN SODIUM INJ 120 MG/0.8 ML DISP.SYRIN SUBCUT SCH (22:04)
--- NOTE | 2019-12-27 23:16 | CDI QUERY ---
CDI Query CDI Review: We are seeking further clarification of documentation to reflect the severity of illness of your patient. Noted in Critical Care Note: Acute myocardial infarction Qualifiers: Myocardial infarction type: unspecified Involved coronary artery: unspecified coronary artery Qualified Code(s): I21.9 - Acute myocardial infarction, unspecified Is this a current diagnosis for this admission?: Yes Plan: Stat twelve-lead EKG. Start aspirin. Start beta-carlos alberto. Start heparin infusion. Based on your medical judgement, can you further clarify in the Progress Notes ND confirmed ND ruled out Unable to determine Other If possible, please indicate the type: Type I: STEMI NSTEMI Type 2 Unable to determine Other Thank you for your consideration. REJI Tsang RN Clinical Digital Media Intern Physician Advisor
[2019-12-28] MEDS: METOPROLOL TARTRATE PF/INJ 5 MG/5 ML SDV IV SCH ×4 (03:26→21:37)
[2019-12-28] MEDS: HYDROCODONE/ACETAMINOPHEN 5-325 MG TABLET PO PRN ×3 (03:37→17:51)
[2019-12-28 04:28] LABS: ABSOLUTE BASOPHILS # (AUTO) 0.1 10^3/uL (0.0-0.2); ABSOLUTE EOSINOPHILS # (AUTO) 0.1 10^3/uL (0.0-0.6); ABSOLUTE LYMPHOCYTES (AUTO) 1.8 10^3/uL (0.5-4.7); BASOPHILS % (AUTO) 0.5 % (0-2); EOSINOPHILS % (AUTO) 0.5 % (0-6); HEMATOCRIT 40.4 % (37.9-51.0); MEAN CORPUSCULAR HGB CONC 32.1 g/dL (32.0-36.0); MEAN CORPUSCULAR VOLUME 87 fl (80-97); MONOCYTES % (AUTO) 8.4 % (3-13); PLATELET COUNT 133 10^3/uL (150-450); RED BLOOD COUNT 4.63 10^6/uL (4.35-5.55); SEGMENTED NEUTROPHILS % (AUTO) 75.6 % (42-78); TOTAL CELLS COUNTED % (AUTO) 100 %; WHITE BLOOD COUNT 11.9 10^3/uL (4.0-10.5)
[2019-12-28 04:40] LABS: BLOOD UREA NITROGEN 31 mg/dL (7-20); CALCIUM 8.7 mg/dL (8.4-10.2); CHLORIDE 85 mmol/L (98-107); GLUCOSE 107 mg/dL (75-110); POTASSIUM 4.3 mmol/L (3.6-5.0)
[2019-12-28 04:57] LABS: ANION GAP 9 (5-19)
[2019-12-28 04:58] LABS: CARBON DIOXIDE 44 mmol/L (22-30)
[2019-12-28 05:23] LABS: ARTERIAL BLOOD BASE EXCESS 21.5 mmol/L; ARTERIAL BLOOD H2CO3 2.76 mmol/L (1.05-1.35); ARTERIAL BLOOD HCO3 52.1 mmol/L (20-24); ARTERIAL BLOOD O2 SATURATION 93.1 % (94-98); ARTERIAL BLOOD PH 7.37 (7.35-7.45); ARTERIAL BLOOD PO2 72.7 mmHg (80-100); ARTERIAL BLOOD TOTAL CO2 54.9 mmol/L (23-27)
[2019-12-28 05:24] LABS: ARTERIAL BLOOD FIO2 30%; ARTERIAL BLOOD PCO2 91.8 mmHg (35-45)
[2019-12-28] MEDS: CLOTRIMAZOLE 1% CREAM 15 GM TP SCH ×4 (06:57→21:38)
[2019-12-28] MEDS: PANTOPRAZOLE SODIUM 40 MG TABLET.DR PO SCH (06:57)
--- NOTE | 2019-12-28 09:22 | PDOC CRITICAL CARE PROG REPORT ---
General Date:: 12/28/19 Hospital Day:: 2 Resuscitation Status: Full Code Events in the past 12 to 24 Hours:: Fully awake, but needing bipap on occassion Review of systems relevant to events:: Respiratory Reason for ICU Addmission:: Acute hypoxemic and hypercapnic respiratory failure, improved, never intubated. - Medications: Medications reviewed and adjusted accordingly: Yes Vasopressors:: None Sedation:: None Physical Exam Vital Signs: Temp Pulse Resp BP Pulse Ox 98.7 F 83 24 H 134/91 H 98 12/28/19 07:23 12/28/19 08:00 12/28/19 08:01 12/28/19 08:01 12/28/19 08:01 Intake & Output 12/27/19 12/28/19 12/29/19 06:59 06:59 06:59 Intake Total 250 243 Output Total 6140 6625 [facility] -0609 -8430 Weight 188.6 kg 193 kg Weight/Height Weight 193 kg Height 5 ft 8 in General appearance: PRESENT: no acute distress, cooperative, morbidly obese Head exam: PRESENT: atraumatic, normocephalic Eye exam: PRESENT: conjunctiva pink, EOMI, PERRLA. ABSENT: scleral icterus Ear exam: PRESENT: normal external ear exam Mouth exam: PRESENT: moist, tongue midline Respiratory exam: PRESENT: clear to auscultation jess, decreased breath sounds. ABSENT: rales, rhonchi, wheezes Cardiovascular exam: PRESENT: RRR. ABSENT: diastolic murmur, rubs, systolic murmur GI/Abdominal exam: PRESENT: normal bowel sounds, soft. ABSENT: distended, guarding, mass, organolmegaly, rebound, tenderness Rectal exam: PRESENT: deferred Extremities exam: PRESENT: full ROM. ABSENT: calf tenderness, clubbing, pedal edema Musculoskeletal exam: PRESENT: normal inspection Neurological exam: PRESENT: alert, awake, oriented to person, oriented to place, oriented to time, oriented to situation, CN II-XII grossly intact. ABSENT: mot or sensory deficit Psychiatric exam: PRESENT: appropriate affect, normal mood. ABSENT: homicidal ideation, suicidal ideation Skin exam: PRESENT: dry, intact, warm. ABSENT: cyanosis, rash Laboratory/Radiographs Laboratory Results: 12/28/19 04:08 12/28/19 04:08 12/28/19 12/28/1920 04:08 04:08 05:00 WBC 11.9 H RBC 4.63 Hgb 13.0 L Hct 40.4 MCV 87 MCH 28.0 MCHC 32.1 RDW 16.0 H Plt Count 133 L Seg Neutrophils % 75.6 Carbonic Acid 2.76 H HCO3/H2CO3 Ratio 18:1 ABG pH 7.37 ABG pCO2 91.8 H* ABG pO2 72.7 L ABG HCO3 52.1 H ABG O2 Saturation 93.1 L ABG Base Excess 21.5 FiO2 30% Sodium 138.0 Potassium 4.3 Chloride 85 L Carbon Dioxide 44 H* Anion Gap 9 BUN 31 H Creatinine 0.94 Est GFR ( Amer) > 60 Glucose 107 Calcium 8.7 12/26/19 12/26/19 12/26/19 00:25 13:16 14:20 Troponin I 0.075 Cancelled 0.795 NT-Pro-B Natriuret Pep 7480 H 12/26/19 12/27/19 12/27/19 20:15 02:30 02:30 Troponin I 0.672 0.603 NT-Pro-B Natriuret Pep 3510 H 12/27/19 12/27/19 08:22 19:45 Troponin I 0.494 0.365 NT-Pro-B Natriuret Pep Impressions: Head CT 12/26/19 00:47 IMPRESSION: No acute intracranial abnormality. Chest X-Ray 12/27/19 05:00 IMPRESSION: STABLE APPEARANCE OF THE CHEST. All labs, radiographs, diagnostic studies and EKGs were personally reviewed: Yes In addition, reports of radiographic and diagnostic studies were read: Yes Assessment and Plan - Diagnosis (1) Hypoventilation associated with obesity Is this a current diagnosis for this admission?: Yes Plan: This is his major problem with respiratory issues steming from this. [facility]Although his pH is normalized at 7.37 his pCO2 is 93 with a bicarb of 53. This should be evaluated with a plan prior to sending home. (2) Acute diastolic heart failure Is this a current diagnosis for this admission?: Yes Plan: He does have pulmonary HTN. (3) Acute hypercapnic respiratory failure Is this a current diagnosis for this admission?: Yes Plan: As above. (4) Morbid obesity with BMI of 60.0-69.9, adult Is this a current diagnosis for this admission?: Yes Plan: BMI 65. (5) Respiratory failure with hypoxia and hypercapnia Qualifiers: Chronicity: acute Qualified Code(s): J96.01 - Acute respiratory failure with hypoxia; J96.02 - Acute respiratory failure with hypercapnia Is this a current diagnosis for this admission?: Yes Plan: As above (6) Obstructive sleep apnea Is this a current diagnosis for this admission?: Yes Plan: This too is contributing to pulmonary HTN and hypoventilation. Plan Summary: To be transferred to the floor this AM with a pulmonary consult. Critical Time Critical Time (minutes): 25 Level of Care: IMCU Anticipated discharge: Home Anticipated DC Timeframe: within 48 hours -: 1. The care of a critical patient is a dynamic process. This note is a brewery representative synopsis but static in nature. The timeframe for treatments given in order is not necessarily the actual time these treatments may have been done. 2. This patient requires critical care secondary to ongoing requirements for therapy not offered or safe outside the critical care environment. Transfer to a lower level of care will result in altered life or limb morbidity and mortality. 3. Multidisciplinary rounds completed. 4. ABCDE bundle addressed.
[2019-12-28] MEDS ORDERED: FUROSEMIDE 20 MG TABLET PO SCH (10:00)
[2019-12-28] MEDS ORDERED: PANTOPRAZOLE SODIUM 40 MG VIAL IV SCH (10:00)
[2019-12-28] MEDS: ENOXAPARIN SODIUM INJ 120 MG/0.8 ML DISP.SYRIN SUBCUT SCH ×2 (10:46→21:06)
[2019-12-28] MEDS: FUROSEMIDE INJ/PF 40 MG/4 ML SDV IV SCH ×2 (11:07→21:38)
[2019-12-28] MEDS: CEFEPIME 1 GM/D5W RTU 1 GM/50 ML RTUPB IV SCH ×2 (11:07→21:40)
[2019-12-28] MEDS: METHYLPREDNISOLONE INJ 40 MG/1 ML SDV IV SCH ×2 (11:07→21:37)
[2019-12-28] MEDS: ASPIRIN 81 MG TABLET, CHEWABLE PO SCH (11:07)
[2019-12-28] MEDS: NYSTATIN TOPICAL POWDER 15 GM TP SCH ×2 (11:07→17:50)
[2019-12-28] MEDS: NICOTINE 21 MG/24 HR PATCH.TD24 TD SCH (17:49)
[2019-12-29] MEDS: HYDROCODONE/ACETAMINOPHEN 5-325 MG TABLET PO PRN ×4 (02:08→21:33)
[2019-12-29] MEDS: METOPROLOL TARTRATE PF/INJ 5 MG/5 ML SDV IV SCH ×2 (03:36→09:27)
[2019-12-29 05:43] LABS: BLOOD UREA NITROGEN 27 mg/dL (7-20); CALCIUM 8.9 mg/dL (8.4-10.2); CHLORIDE 84 mmol/L (98-107); GLUCOSE 176 mg/dL (75-110); POTASSIUM 5.2 mmol/L (3.6-5.0)
[2019-12-29 06:01] LABS: ANION GAP 8 (5-19)
[2019-12-29 06:02] LABS: CARBON DIOXIDE 46 mmol/L (22-30)
[2019-12-29] MEDS: PANTOPRAZOLE SODIUM 40 MG TABLET.DR PO SCH (06:37)
[2019-12-29] MEDS: CLOTRIMAZOLE 1% CREAM 15 GM TP SCH ×3 (06:38→21:29)
[2019-12-29 06:57] LABS: HEMATOCRIT 39.8 % (37.9-51.0); HEMOGLOBIN 12.8 g/dL (13.5-17.0); MEAN CORPUSCULAR HEMOGLOBIN 27.9 pg (27.0-33.4); MEAN CORPUSCULAR HGB CONC 32.2 g/dL (32.0-36.0); MEAN CORPUSCULAR VOLUME 87 fl (80-97); RED BLOOD COUNT 4.59 10^6/uL (4.35-5.55); RED CELL DISTRIBUTION WIDTH 15.7 % (11.5-14.0); WHITE BLOOD COUNT 11.1 10^3/uL (4.0-10.5)
[2019-12-29 07:23] LABS: PLATELET COUNT 210 10^3/uL (150-450)
[2019-12-29] MEDS: ASPIRIN 81 MG TABLET, CHEWABLE PO SCH (09:26)
[2019-12-29] MEDS: FUROSEMIDE INJ/PF 40 MG/4 ML SDV IV SCH (09:28)
[2019-12-29] MEDS: ENOXAPARIN SODIUM INJ 120 MG/0.8 ML DISP.SYRIN SUBCUT SCH (09:28)
[2019-12-29] MEDS: NYSTATIN TOPICAL POWDER 15 GM TP SCH ×2 (09:29→17:27)
[2019-12-29] MEDS: CEFEPIME 1 GM/D5W RTU 1 GM/50 ML RTUPB IV SCH ×2 (09:29→21:32)
[2019-12-29] MEDS: NICOTINE 21 MG/24 HR PATCH.TD24 TD SCH (09:30)
[2019-12-29] MEDS: METHYLPREDNISOLONE INJ 40 MG/1 ML SDV IV SCH (09:30)
[2019-12-29 13:11] LABS: APPEARANCE,URINE CLEAR; BILIRUBIN,URINE NEGATIVE (NEGATIVE); COLOR,URINE STRAW; GLUCOSE, URINE NEGATIVE (NEGATIVE); KETONES,URINE NEGATIVE (NEGATIVE); LEUKOCYTE ESTERASE,URINE NEGATIVE (NEGATIVE); NITRITE,URINE NEGATIVE (NEGATIVE); PROTEIN,URINE NEGATIVE (NEGATIVE); URINE SPECIFIC GRAVITY 1.008; UROBILINOGEN,URINE NEGATIVE mg/dL (<2.0)
[2019-12-29 13:14] LABS: ARTERIAL BLOOD BASE EXCESS 18.2 mmol/L; ARTERIAL BLOOD FIO2 30%; ARTERIAL BLOOD HCO3 48.3 mmol/L (20-24); ARTERIAL BLOOD O2 SATURATION 95.1 % (94-98); ARTERIAL BLOOD PH 7.37 (7.35-7.45); ARTERIAL BLOOD PO2 82.7 mmHg (80-100)
[2019-12-29 13:15] LABS: ARTERIAL BLOOD PCO2 86.3 mmHg (35-45)
--- NOTE | 2019-12-29 15:21 | PDOC PROGRESS REPORT ---
Subjective Progress Note for:: 12/29/19 Subjective:: Patient was admitted to the intensive care unit for acute respiratory failure. He states that he feels better. Reason For Visit: ACUTE HYPERCAPNEIC RESPIRATORY FAILURE Physical Exam Vital Signs: Temp Pulse Resp BP Pulse Ox 98.0 F 83 24 H 142/70 H 95 12/29/19 12:43 12/29/19 12:43 12/29/19 13:05 12/29/19 12:43 12/29/19 13:05 Intake & Output 12/28/19 12/29/19 12/30/19 06:59 06:59 06:59 Intake Total 949 733 0327 Output Total 6625 6275 2275 [facility] -6382 -5475 -1273 Weight 193 kg 183.4 kg General appearance: PRESENT: no acute distress, morbidly obese, well-nourished Head exam: PRESENT: atraumatic, normocephalic Eye exam: PRESENT: conjunctiva pink, EOMI, PERRLA. ABSENT: scleral icterus Ear exam: PRESENT: normal external ear exam Mouth exam: PRESENT: moist, tongue midline Neck exam: ABSENT: carotid bruit, JVD, lymphadenopathy, thyromegaly Respiratory exam: PRESENT: clear to auscultation jess. ABSENT: rales, rhonchi, wheezes Cardiovascular exam: PRESENT: RRR. ABSENT: diastolic murmur, rubs, systolic murmur Pulses: PRESENT: normal dorsalis pedis pul Vascular exam: PRESENT: normal capillary refill GI/Abdominal exam: PRESENT: normal bowel sounds, soft. ABSENT: distended, guarding, mass, organolmegaly, rebound, tenderness Rectal exam: PRESENT: deferred Extremities exam: PRESENT: full ROM. ABSENT: calf tenderness, clubbing, pedal edema Neurological exam: PRESENT: alert, awake, oriented to person, oriented to place, oriented to time, oriented to situation, CN II-XII grossly intact. ABSENT: motor sensory deficit Psychiatric exam: PRESENT: appropriate affect, normal mood. ABSENT: homicidal ideation, suicidal ideation Skin exam: PRESENT: dry, intact, warm. ABSENT: cyanosis, rash Results Laboratory Results: 12/29/19 06:36 12/29/19 04:12 12/29/19 12/29/19 12/29/19 04:12 04:12 06:36 WBC Cancelled 11.1 H RBC Cancelled 4.59 Hgb Cancelled 12.8 L Hct Cancelled 39.8 MCV Cancelled 87 MCH Cancelled 27.9 MCHC Cancelled 32.2 RDW Cancelled 15.7 H Plt Count Cancelled 210 Carbonic Acid HCO3/H2CO3 Ratio ABG pH ABG pCO2 ABG pO2 ABG HCO3 ABG O2 Saturation ABG Base Excess FiO2 Sodium 137.6 Potassium 5.2 H Chloride 84 L Carbon Dioxide 46 H* Anion Gap 8 BUN 27 H Creatinine 0.85 Est GFR ( Amer) > 60 Glucose 176 H Calcium 8.9 Urine Color Urine Appearance Urine pH Ur Specific [place] Urine Protein Urine Glucose (UA) Urine Ketones Urine Blood Urine Nitrite Ur Leukocyte Esterase Urine WBC (Auto) Urine RBC (Auto) 12/29/19 12/29/19 12:48 12:55 WBC RBC Hgb Hct MCV MCH MCHC RDW Plt Count Carbonic Acid 2.60 H HCO3/H2CO3 Ratio 18:1 ABG pH 7.37 ABG pCO2 86.3 H* ABG pO2 82.7 ABG HCO3 48.3 H ABG O2 Saturation 95.1 ABG Base Excess 18.2 FiO2 30% Sodium Potassium Chloride Carbon Dioxide Anion Gap BUN Creatinine Est GFR ( Amer) Glucose Calcium Urine Color STRAW Urine Appearance CLEAR Urine pH 7.0 Ur Specific [place] 1.008 Urine Protein NEGATIVE Urine Glucose (UA) NEGATIVE Urine Ketones NEGATIVE Urine Blood NEGATIVE Urine Nitrite NEGATIVE Ur Leukocyte Esterase NEGATIVE Urine WBC (Auto) 0 Urine RBC (Auto) 2 12/26/19 12/26/19 12/26/19 00:25 13:16 14:20 Troponin I 0.075 Cancelled 0.795 NT-Pro-B Natriuret Pep 7480 H 12/26/19 12/27/19 12/27/19 20:15 02:30 02:30 Troponin I 0.672 0.603 NT-Pro-B Natriuret Pep 3510 H 12/27/19 12/27/19 08:22 19:45 Troponin I 0.494 0.365 NT-Pro-B Natriuret Pep Impressions: Head CT 12/26/19 00:47 IMPRESSION: No acute intracranial abnormality. Chest X-Ray 12/27/19 05:00 IMPRESSION: STABLE APPEARANCE OF THE CHEST. Assessment and Plan - Diagnosis (1) Acute hypercapnic respiratory failure Is this a current diagnosis for this admission?: Yes (2) Hypoventilation associated with obesity Is this a current diagnosis for this admission?: Yes (3) Morbid obesity with BMI of 60.0-69.9, adult Is this a current diagnosis for this admission?: Yes (4) Hypercapnic respiratory failure Qualifiers: Chronicity: unspecified Qualified Code(s): J96.92 - Respiratory failure, unspecified with hypercapnia Is this a current diagnosis for this admission?: Yes (5) Obstructive sleep apnea Is this a current diagnosis for this admission?: Yes - Plan Summary Summary: Obesity hypoventilation syndrome. Patient continues to be on BiPAP. We are currently awaiting pulmonology consult. Patient has apparently been more compliant with his BiPAP and repeat ABG is noted with slight improvement in his CO2. Acute hypercapnic respiratory failure I suspect definitely with some chronic component. PCO2 is slightly improved today. Patient appears to be well compensated Morbid obesity with BMI of 60-69 Obstructive sleep apnea with secondary pulmonary hypertension and hypoventilation syndrome Patient was transferred from the intensive care unit on December 27. He appears he has been on Lovenox although indication is unclear to me at this time. I will change this over to prophylactic dose of Lovenox - Time Time Spent with patient: 15-24 minutes Medications reviewed and adjusted accordingly: Yes Anticipated Discharge Disposition: Home, Self Care Anticipated Discharge Timeframe: within 48 hours - Inpatient Certification Based on my medical assessment, after consideration of the patient's comorbidities, presenting symptoms, or acuity I expect that the services needed warrant INPATIENT care.: Yes Medical Necessity: Risk of Complication if Not Cared For in Hospital
[2019-12-29] MEDS ORDERED: ALBUTEROL SULFATE HFA (90 MCG/PUFF) 200 PUFF/8.5 GM MDI IH PRN (16:24)
[2019-12-29] MEDS: FUROSEMIDE 40 MG TABLET PO SCH (17:24)
[2019-12-29] MEDS: METOPROLOL TARTRATE 25 MG TABLET PO SCH (21:27)
[2019-12-29] MEDS: ENOXAPARIN SODIUM INJ 30 MG/0.3 ML DISP.SYRIN SUBCUT SCH (21:31)
[2019-12-29] MEDS ORDERED: ENOXAPARIN SODIUM INJ 120 MG/0.8 ML DISP.SYRIN SUBCUT SCH (22:00)
[2019-12-30] MEDS: PANTOPRAZOLE SODIUM 40 MG TABLET.DR PO SCH (06:03)
[2019-12-30] MEDS: CLOTRIMAZOLE 1% CREAM 15 GM TP SCH ×3 (06:03→22:27)
[2019-12-30] MEDS: HYDROCODONE/ACETAMINOPHEN 5-325 MG TABLET PO PRN ×3 (06:06→20:49)
[2019-12-30] MEDS: FUROSEMIDE 40 MG TABLET PO SCH ×2 (09:07→17:25)
[2019-12-30] MEDS: ASPIRIN 81 MG TABLET, CHEWABLE PO SCH (09:07)
[2019-12-30] MEDS: ENOXAPARIN SODIUM INJ 30 MG/0.3 ML DISP.SYRIN SUBCUT SCH ×2 (09:07→22:26)
[2019-12-30] MEDS: METOPROLOL TARTRATE 25 MG TABLET PO SCH ×2 (09:07→22:26)
[2019-12-30] MEDS: CEFEPIME 1 GM/D5W RTU 1 GM/50 ML RTUPB IV SCH (09:08)
[2019-12-30] MEDS: NICOTINE 21 MG/24 HR PATCH.TD24 TD SCH (09:08)
[2019-12-30] MEDS ORDERED: METHYLPREDNISOLONE INJ 40 MG/1 ML SDV IV SCH (10:00)
[2019-12-30] MEDS: NYSTATIN TOPICAL POWDER 15 GM TP SCH ×2 (10:23→17:25)
[2019-12-30] MEDS: MEDROXYPROGESTERONE ACET 10 MG TABLET PO SCH ×2 (14:12→22:24)
[2019-12-30] MEDS: ACETAZOLAMIDE 250 MG TABLET PO SCH ×2 (14:13→22:26)
[2019-12-30] MEDS: THEOPHYLLINE ANHYDROUS 300 MG TAB.SR.12H PO SCH (17:25)
--- NOTE | 2019-12-30 18:58 | PDOC PROGRESS REPORT ---
Subjective Progress Note for:: 12/30/19 Subjective:: The patient was seen and examined at bedside. He was sitting on the chair of 3 L of O2 via NC breathing comfortably. Reports good sleep with bipap overnight. I was able to take him off the NC completely with O2 rechecked off O2, he remained above 92%. Denied fever, cough, SOB. Reason For Visit: ACUTE HYPERCAPNEIC RESPIRATORY FAILURE Physical Exam Vital Signs: Temp Pulse Resp BP Pulse Ox 97.8 F 74 18 139/81 H 98 12/30/19 10:00 12/30/19 14:00 12/30/19 04:16 12/30/19 08:25 12/30/19 08:25 Intake & Output 12/29/19 12/30/19 12/31/19 06:59 06:59 06:59 Intake Total 800 2018 50 Output Total 62 4601 Balance -0637 -1154 50 Weight 183.4 kg 180.9 kg General appearance: PRESENT: no acute distress, cooperative, morbidly obese Head exam: PRESENT: atraumatic, normocephalic Eye exam: PRESENT: EOMI, PERRLA. ABSENT: conjunctival injection Mouth exam: PRESENT: moist, tongue midline Neck exam: ABSENT: carotid bruit Respiratory exam: ABSENT: crackles, rales, rhonchi, wheezes Cardiovascular exam: PRESENT: RRR, +S1 - normal, +S2 - normal Pulses: PRESENT: +2 pedal pulses bilateral GI/Abdominal exam: PRESENT: normal bowel sounds, soft. ABSENT: guarding, rebound, tenderness Rectal exam: PRESENT: deferred Extremities exam: PRESENT: +1 edema Musculoskeletal exam: PRESENT: ambulatory, full ROM Neurological exam: PRESENT: alert, awake Psychiatric exam: PRESENT: normal mood Results Laboratory Results: 12/29/19 06:36 12/29/19 04:12 12/26/19 12/26/19 12/26/19 00:25 13:16 14:20 Troponin I 0.075 Cancelled 0.795 NT-Pro-B Natriuret Pep 7480 H 12/26/19 12/27/19 12/27/19 20:15 02:30 02:30 Troponin I 0.672 0.603 NT-Pro-B Natriuret Pep 3510 H 12/27/19 12/27/19 08:22 19:45 Troponin I 0.494 0.365 NT-Pro-B Natriuret Pep Impressions: Head CT 12/26/19 00:47 IMPRESSION: No acute intracranial abnormality. Chest X-Ray 12/27/19 05:00 IMPRESSION: STABLE APPEARANCE OF THE CHEST. Assessment and Plan - Diagnosis (1) Acute hypercapnic respiratory failure Is this a current diagnosis for this admission?: Yes Plan: - on bipap at HS, did well overnight - secondary to JASON. He has a CPAP at home but has not been using it prior to admission - not on home O2. Off O2 today - ABG on 12/28 7.37/86/3/82.7/48.3 consistent with chronic resp acidosis with metabolic alkalosis - pulm consult in Dr. Zayas aware - repeat ABG tomorrow - blood culture no growth x 72 hrs. Cefepime stopped (2) Morbid obesity with BMI of 60.0-69.9, adult Is this a current diagnosis for this admission?: Yes Plan: - advised lifestyle modification, low carb diet (3) Obstructive sleep apnea Is this a current diagnosis for this admission?: Yes Plan: - has a CPAP at home but has not been using it recently. Informed him of the importance of using CPAP regularly and he seems to have understood - on bipap - ABG consistent with hypercapnic resp failure with chronic respiratory acidosis - pulm on consult - Time Time Spent with patient: 25-34 minutes Medications reviewed and adjusted accordingly: Yes Anticipated Discharge Disposition: Home with Home Health Anticipated Discharge Timeframe: to be determined - Inpatient Certification Medical Necessity: Risk of Complication if Not Cared For in Hospital
[2019-12-31] MEDS: CLOTRIMAZOLE 1% CREAM 15 GM TP SCH (06:31)
[2019-12-31] MEDS: THEOPHYLLINE ANHYDROUS 300 MG TAB.SR.12H PO SCH (06:32)
[2019-12-31] MEDS: MEDROXYPROGESTERONE ACET 10 MG TABLET PO SCH (06:32)
[2019-12-31] MEDS: PANTOPRAZOLE SODIUM 40 MG TABLET.DR PO SCH (06:32)
[2019-12-31 06:34] LABS: ARTERIAL BLOOD BASE EXCESS 11.7 mmol/L; ARTERIAL BLOOD FIO2 30%; ARTERIAL BLOOD H2CO3 1.97 mmol/L (1.05-1.35); ARTERIAL BLOOD HCO3 39.5 mmol/L (20-24); ARTERIAL BLOOD O2 SATURATION 97.3 % (94-98); ARTERIAL BLOOD PCO2 65.5 mmHg (35-45); ARTERIAL BLOOD PO2 99.7 mmHg (80-100); ARTERIAL BLOOD TOTAL CO2 41.5 mmol/L (23-27)
[2019-12-31] MEDS: HYDROCODONE/ACETAMINOPHEN 5-325 MG TABLET PO PRN ×2 (06:36→13:20)
[2019-12-31 07:36] LABS: HEMATOCRIT 43.6 % (37.9-51.0); HEMOGLOBIN 13.9 g/dL (13.5-17.0); MEAN CORPUSCULAR HEMOGLOBIN 27.7 pg (27.0-33.4); MEAN CORPUSCULAR HGB CONC 31.9 g/dL (32.0-36.0); MEAN CORPUSCULAR VOLUME 87 fl (80-97); PLATELET COUNT 273 10^3/uL (150-450); RED BLOOD COUNT 5.01 10^6/uL (4.35-5.55); RED CELL DISTRIBUTION WIDTH 15.4 % (11.5-14.0); WHITE BLOOD COUNT 12.5 10^3/uL (4.0-10.5)
[2019-12-31] MEDS: NYSTATIN TOPICAL POWDER 15 GM TP SCH (09:08)
[2019-12-31] MEDS: ENOXAPARIN SODIUM INJ 30 MG/0.3 ML DISP.SYRIN SUBCUT SCH (09:12)
[2019-12-31] MEDS: ACETAZOLAMIDE 250 MG TABLET PO SCH (09:12)
[2019-12-31] MEDS: ASPIRIN 81 MG TABLET, CHEWABLE PO SCH (09:12)
[2019-12-31] MEDS: METOPROLOL TARTRATE 25 MG TABLET PO SCH (09:12)
[2019-12-31] MEDS: NICOTINE 21 MG/24 HR PATCH.TD24 TD SCH (09:12)
[2019-12-31] MEDS ORDERED: PREDNISONE 20 MG TABLET PO SCH (10:00)
--- NOTE | 2019-12-31 12:51 | PDOC CONSULTATION ---
Consultation Consult Date: 12/30/19 Provider Consulted: MARIA ALEJANDRA SALAZAR Consult reason:: Morbid obesity with CO2 retention. History of Present Illness Admission Date/PCP: 12/26/19 03:36 BROOKLYNN MUNGUIA MD History of Present Illness: DUNCAN POLK is a 54 year old male Who presents with ventilatory failure. He was initially admitted to the floor but then subsequent transferred to the intensive care unit on the day of his admission. He noted a several day history of increasing dyspnea and shortness of breath. He denies much in the way of fevers or chills. He states that beginning approximately 3 months prior to his admission he noted increasing lower extremity edema and swelling. He also noted approximately a 60 pound weight gain. He ascribes most all of this weight gain to fluid in his lower extremities. He denies any significant occupational exposures. He denies a significant history of cigarette smoking. He carries a prior diagnosis of obstructive sleep apnea for which he has previously been prescribed a CPAP device. He has not been wearing his CPAP device. Past Medical History Cardiac Medical History: Reports: Hypertension Denies: Coronary Artery Disease, Myocardial Infarction Pulmonary Medical History: Reports: Sleep Apnea - He has a previously prescribed CPAP device. Denies: Asthma, Bronchitis, Chronic Obstructive Pulmonary Disease (COPD), Pneumonia Neurological Medical History: Denies: Seizures Musculoskeltal Medical History: Denies: Arthritis Psychiatric Medical History: Denies: Depression Hematology: Denies: Anemia Social History Smoking Status: Unknown if Ever Smoked Frequency of Alcohol Use: None Hx Recreational Drug Use: No Drugs: None - Advance Directive Resuscitation Status: Full Code Family History Family History: Hypertension, Other - CHF Parental Family History Reviewed: Yes Children Family History Reviewed: Yes Sibling(s) Family History Reviewed.: Yes Medication/Allergy Home Medications: Hydrocodone/Acetaminophen [[place] 10-325 mg Tablet] 1 tab PO Q6HP PRN 03/22/18 Albuterol Sulfate [Proair Hfa Inhalation Aerosol 8.5 gm Mdi] 2 puff IH Q4HP PRN 12/26/19 Diltiazem HCl [Cartia Xt] 240 mg PO DAILY 12/26/19 Furosemide [Lasix 20 mg Tablet] 20 mg PO DAILY 12/26/19 Tamsulosin HCl [Flomax 0.4 mg Cap.sr] 0.4 mg PO DAILY 12/26/19 Allergies/Adverse Reactions: No Known Allergies Allergy (Verified 03/21/18 22:33) Physical Exam Vital Signs: Temp Pulse Resp BP Pulse Ox 97.8 F 77 18 139/81 H 98 12/30/19 10:00 12/30/19 08:25 12/30/19 04:16 12/30/19 08:25 12/30/19 08:25 Intake & Output 12/29/19 12/30/19 12/31/19 06:59 06:59 06:59 Intake Total 800 5692 Output Total 8300 4422 Balance -2524 -0092 Weight 183.4 kg 180.9 kg General appearance: PRESENT: no acute distress, morbidly obese Head exam: PRESENT: atraumatic, normocephalic Eye exam: PRESENT: EOMI, PERRLA Respiratory exam: PRESENT: clear to auscultation jess, rales, rhonchi, symmetrical, unlabored. ABSENT: accessory muscle use, chest wall tenderness, crackles, decreased breath sounds, prolonged expiratory phas, retraction, stridor, tachypnea, wheezes Cardiovascular exam: PRESENT: RRR, +S1, +S2. ABSENT: bradycardia, clicks, diastolic murmur, gallop, irregular rhythm, rubs, systolic murmur, tachycardia Extremities exam: PRESENT: +2 edema - This patient has massive lower extremity edema. Musculoskeletal exam: ABSENT: ambulatory Neurological exam: PRESENT: alert, awake, oriented to person, oriented to place, oriented to time, oriented to situation, CN II-XII grossly intact Results Laboratory Results: 12/29/19 06:36 12/29/19 04:12 12/26/19 12/26/19 12/26/19 00:25 13:16 14:20 Troponin I 0.075 Cancelled 0.795 NT-Pro-B Natriuret Pep 7480 H 12/26/19 12/27/19 12/27/19 20:15 02:30 02:30 Troponin I 0.672 0.603 NT-Pro-B Natriuret Pep 3510 H 12/27/19 12/27/19 08:22 19:45 Troponin I 0.494 0.365 NT-Pro-B Natriuret Pep Impressions: Head CT 12/26/19 00:47 IMPRESSION: No acute intracranial abnormality. Chest X-Ray 08/17/20 05:00 IMPRESSION: STABLE APPEARANCE OF THE CHEST. Status: Image reviewed by me - This patient's chest films were reviewed by me. He has impressive cardiomegaly. Assessment & Plan - Diagnosis (1) Acute decompensated heart failure Is this a current diagnosis for this admission?: Yes (2) Hypoventilation associated with obesity Is this a current diagnosis for this admission?: Yes (3) Morbid obesity with BMI of 60.0-69.9, adult Is this a current diagnosis for this admission?: Yes (4) Pulmonary edema Qualifiers: Chronicity: acute Qualified Code(s): J81.0 - Acute pulmonary edema (5) Respiratory failure with hypoxia and hypercapnia Qualifiers: Chronicity: acute Qualified Code(s): J96.01 - Acute respiratory failure with hypoxia; J96.02 - Acute respiratory failure with hypercapnia Is this a current diagnosis for this admission?: Yes (6) Hypercapnic respiratory failure Qualifiers: Chronicity: unspecified Qualified Code(s): J96.92 - Respiratory failure, unspecified with hypercapnia Is this a current diagnosis for this admission?: Yes (8) Noncompliance Is this a current diagnosis for this admission?: Yes (9) Obstructive sleep apnea Is this a current diagnosis for this admission?: Yes - Plan Summary Plan Summary: This patient's severe decompensated heart failure is likely the leading diagnosis for his recent admission. His BNP was greater than 7000. He has a 40 to 60 pound weight gain in the 3 months preceding his admission which he attributes to his massive leg swelling. At the time of admission he did exhibit CO2 retention. I think he would benefit from a prolonged and concerted effort at diuresis. This should markedly improve his underlying decompensated left ventricular dysfunction. To help in improving his respiratory drive will place on a theophylline preparation as well as medroxyprogesterone. Also started on a brief course of Diamox. This patient's prognosis is obviously guarded given his morbid obesity and severe decompensated congestive heart failure. Will follow along with you during this hospitalization.
--- NOTE | 2019-12-31 12:52 | PDOC PROGRESS REPORT ---
Subjective Reason For Visit: ACUTE HYPERCAPNEIC RESPIRATORY FAILURE Physical Exam Vital Signs: Temp Pulse Resp BP Pulse Ox 97.9 F 74 16 136/71 H 98 12/31/19 08:25 12/31/19 07:00 12/31/19 05:19 12/31/19 03:18 12/31/19 03:18 Intake & Output 12/30/19 12/31/19 01/01/20 06:59 06:59 06:59 Intake Total 2017 2300 Output Total 4660 0325 Balance -5075 -1333 Weight 180.9 kg 180.5 kg Respiratory exam: PRESENT: clear to auscultation jess, decreased breath sounds, symmetrical, unlabored. ABSENT: accessory muscle use, chest wall tenderness, crackles, prolonged expiratory phas, rales, rhonchi, tachypnea, wheezes Results Laboratory Results: 12/31/19 07:23 12/29/19 04:12 12/31/19 12/31/19 06:25 07:23 WBC 12.5 H RBC 5.01 Hgb 13.9 Hct 43.6 MCV 87 MCH 27.7 MCHC 31.9 L RDW 15.4 H Plt Count 273 Carbonic Acid 1.97 H HCO3/H2CO3 Ratio 20:1 ABG pH 7.40 ABG pCO2 65.5 H ABG pO2 99.7 ABG HCO3 39.5 H ABG O2 Saturation 97.3 ABG Base Excess 11.7 FiO2 30% 12/26/19 12/26/19 12/26/19 00:25 13:16 14:20 Troponin I 0.075 Cancelled 0.795 NT-Pro-B Natriuret Pep 7480 H 12/26/19 12/27/19 12/27/19 20:15 02:30 02:30 Troponin I 0.672 0.603 NT-Pro-B Natriuret Pep 3510 H 12/27/19 12/27/19 08:22 19:45 Troponin I 0.494 0.365 NT-Pro-B Natriuret Pep Impressions: Head CT 12/26/19 00:47 IMPRESSION: No acute intracranial abnormality. Chest X-Ray 12/27/19 05:00 IMPRESSION: STABLE APPEARANCE OF THE CHEST. Assessment & Plan - Diagnosis (1) Acute decompensated heart failure Is this a current diagnosis for this admission?: Yes (2) Hypoventilation associated with obesity Is this a current diagnosis for this admission?: Yes (3) Morbid obesity with BMI of 60.0-69.9, adult Is this a current diagnosis for this admission?: Yes (4) Pulmonary edema Qualifiers: Chronicity: acute Qualified Code(s): J81.0 - Acute pulmonary edema Is this a current diagnosis for this admission?: Yes (5) Respiratory failure with hypoxia and hypercapnia Qualifiers: Chronicity: acute Qualified Code(s): J96.01 - Acute respiratory failure with hypoxia; J96.02 - Acute respiratory failure with hypercapnia Is this a current diagnosis for this admission?: Yes (6) Hypercapnic respiratory failure Qualifiers: Chronicity: unspecified Qualified Code(s): J96.92 - Respiratory failure, unspecified with hypercapnia Is this a current diagnosis for this admission?: Yes (8) Noncompliance Is this a current diagnosis for this admission?: Yes (9) Obstructive sleep apnea Is this a current diagnosis for this admission?: Yes - Time Time Spent with patient: 15-24 minutes - Discussed discharge planning with the patient's physician. - Plan Summary Plan Summary: This patient's symptomatology as well as lab testing has improved overnight. He continues to diurese. I think he is appropriate for dismissal home with close follow-up by his scooper. I think we can stop the progesterone as well as the theophylline preparation. I would continue a very small dose of Diamox to balance his tendency to become alkalotic with aggressive loop diuretic use. He likely still has 40 to 60 pounds of lower extremity edema to be removed by diuresis. I do not need to see him in follow-up as his entire presentation was 1 of congestive heart failure.
[2019-12-31 13:11] VITALS: BP 117/59
[2019-12-31] MEDS ORDERED: MEDROXYPROGESTERONE ACET 10 MG TABLET PO SCH (14:00)
--- NOTE | 2019-12-31 23:10 | PDOC DISCHARGE SUMMARY ---
Impression - Admit/DC Date/PCP Admission Date/Primary Care Provider: 12/26/19 03:36 BROOKLYNN MUNGUIA MD Discharge Date: 12/31/19 - Discharge Diagnosis (1) Acute hypercapnic respiratory failure Is this a current diagnosis for this admission?: Yes (2) Morbid obesity with BMI of 60.0-69.9, adult Is this a current diagnosis for this admission?: Yes (3) Obstructive sleep apnea Is this a current diagnosis for this admission?: Yes - Assessment Summary: Patient is a 54-year-old male morbidly obese patient, admitted from the ED in the ICU on December 25 secondary to shortness of breath and altered mental status. Work-up revealed acute hypercapnic respiratory failure, heart failure diasto lic. Also likely to have obesity hypoventilation syndrome. He was started on BiPAP which eventually improved his CO2. Lasix increased to 40 twice daily. His mental status improved on floors. Letter brought in from pulmonology examined him who recommended to continue Lasix at home, give Diamox for a few days, no steroids and theophylline on discharge - Additional Information Resuscitation Status: Full Code Discharge Diet: Cardiac Discharge Activity: Activity As Tolerated, Balance Activity w/Rest, Weigh Daily Referrals: [facility] [NO LOCAL MD] - 01/05/20 2:00 pm (Telephone appointment with Dr. Kramer.) Prescriptions: Acetazolamide [Diamox 250 mg Tab] 250 mg PO Q12 7 Days tablet Furosemide [Lasix 40 mg Tablet] 40 mg PO QAM 30 Days tablet Home Medications: Hydrocodone/Acetaminophen [Tony 10-325 mg Tablet] 1 tab PO Q6HP PRN 03/22/18 Albuterol Sulfate [Proair HFA Inhalation Aerosol 8.5 gm MDI] 2 puff IH Q4HP PRN 12/26/19 Diltiazem HCl [Cartia Xt] 240 mg PO DAILY 12/26/19 Tamsulosin HCl [Flomax 0.4 mg Cap.sr] 0.4 mg PO DAILY 12/26/19 Acetazolamide [Diamox 250 mg Tab] 250 mg PO Q12 7 Days tablet 12/31/19 Aspirin [Aspirin 81 mg Chewable Tablet] 162 mg PO DAILY tab.chew 12/31/19 Furosemide [Lasix 40 mg Tablet] 40 mg PO QAM 30 Days tablet 12/31/19 Metoprolol Tartrate [Lopressor 25 mg Tablet] 25 mg PO Q12 tablet 12/31/19 History of Present Illiness History of Present Illness: DUNCAN POLK is a 54 year old male Physical Exam Vital Signs: Temp Pulse Resp BP Pulse Ox 97.9 F 74 16 133/74 H 98 12/31/19 13:07 12/31/19 13:07 12/31/19 13:07 12/31/19 13:07 12/31/19 13:07 Intake & Output 12/30/19 12/31/19 01/01/20 06:59 06:59 06:59 Intake Total 20172 596 Output Total 4604 2347 350 Balance -8931 -3242 356 Weight 180.9 kg 180.5 kg Results Laboratory Results: WBC 12.5 10^3/uL (4.0-10.5) H 12/31/19 07:23 RBC 5.01 10^6/uL (4.35-5.55) 12/31/19 07:23 Hgb 13.9 g/dL (13.5-17.0) 12/31/19 07:23 Hct 43.6 % (37.9-51.0) 12/31/19 07:23 MCV 87 fl (80-97) 12/31/19 07:23 MCH 27.7 pg (27.0-33.4) 12/31/19 07:23 MCHC 31.9 g/dL (32.0-36.0) L 12/31/19 07:23 RDW 15.4 % (11.5-14.0) H 12/31/19 07:23 Plt Count 273 10^3/uL (150-450) 12/31/19 07:23 Lymph % (Auto) 15.0 % (13-45) 12/28/19 04:08 [place] % (Auto) 8.4 % (3-13) 12/28/19 04:08 Eos % (Auto) 0.5 % (0-6) 12/28/19 04:08 Baso % (Auto) 0.5 % (0-2) 12/28/19 04:08 Absolute Neuts (auto) 9.0 10^3/uL (1.7-8.2) H 12/28/19 04:08 Absolute Lymphs (auto) 1.8 10^3/uL (0.5-4.7) 12/28/19 04:08 Absolute Monos (auto) 1.0 10^3/uL (0.1-1.4) 12/28/19 04:08 Absolute Eos (auto) 0.1 10^3/uL (0.0-0.6) 12/28/19 04:08 Absolute Basos (auto) 0.1 10^3/uL (0.0-0.2) 12/28/19 04:08 Total Counted 100 12/26/19 00:25 Seg Neutrophils % 75.6 % (42-78) 12/28/19 04:08 Seg Neuts % (Manual) 92 % (42-78) H 12/26/19 00:25 Lymphocytes % (Manual) 5 % (13-45) L 12/26/19 00:25 Monocytes % (Manual) 3 % (3-13) 12/26/19 00:25 Eosinophils % (Manual) 0 % (0-6) 12/26/19 00:25 Basophils % (Manual) 0 % (0-2) 12/26/19 00:25 Abs Neuts (Manual) 16.1 10^3/uL (1.7-8.2) H 12/26/19 00:25 Abs Lymphs (Manual) 0.9 10^3/uL (0.5-4.7) 12/26/19 00:25 Abs Monocytes (Manual) 0.5 10^3/uL (0.1-1.4) 12/26/19 00:25 Absolute Eos (Manual) 0.0 10^3/uL (0.0-0.6) 12/26/19 00:25 Abs Basophils (Manual) 0.0 10^3/uL (0.0-0.2) 12/26/19 00:25 Platelet Estimate Cancelled 12/29/19 04:12 Platelet Comment ADEQUATE 12/26/19 00:25 Polychromasia SLIGHT 12/26/19 00:25 Anisocytosis 1+ 12/26/19 00:25 Ovalocytes SLIGHT 12/26/19 00:25 PT 14.6 SEC (11.4-15.4) 12/26/19 16:55 INR 1.12 12/26/19 16:55 APTT 128.6 SEC (23.5-35.8) H D 12/27/19 06:50 Carbonic Acid 1.97 mmol/L (1.05-1.35) H 12/31/19 06:25 HCO3/H2CO3 Ratio 20:1 12/31/19 06:25 ABG pH 7.40 (7.35-7.45) 12/31/19 06:25 ABG pCO2 65.5 mmHg (35-45) H 12/31/19 06:25 ABG pO2 99.7 mmHg (80-100) 12/31/19 06:25 ABG HCO3 39.5 mmol/L (20-24) H 12/31/19 06:25 ABG Total CO2 41.5 mmol/L (23-27) H 12/31/19 06:25 ABG O2 Saturation 97.3 % (94-98) 12/31/19 06:25 ABG Base Excess 11.7 mmol/L 12/31/19 06:25 FiO2 30% 12/31/19 06:25 Sodium 137.6 mmol/L (137-145) 12/29/19 04:12 Potassium 5.2 mmol/L (3.6-5.0) H 12/29/19 04:12 Chloride 84 mmol/L (98-107) L 12/29/19 04:12 Carbon Dioxide 46 mmol/L (22-30) H* 12/29/19 04:12 Anion Gap 8 (5-19) 12/29/19 04:12 BUN 27 mg/dL (7-20) H 12/29/19 04:12 Creatinine 0.85 mg/dL (0.52-1.25) 12/29/19 04:12 Est GFR ( Amer) > 60 (>60) 12/29/19 04:12 Est GFR (MDRD) Non-Af > 60 (>60) 12/29/19 04:12 Glucose 176 mg/dL (75-110) H 12/29/19 04:12 POC Glucose 110 mg/dL (70-110) 12/26/19 11:54 Lactic Acid 2.1 mmol/L (0.7-2.1) 12/26/19 01:09 Calcium 8.9 mg/dL (8.4-10.2) 12/29/19 04:12 Phosphorus 7.2 mg/dL (2.5-4.5) H 12/26/19 00:25 Magnesium 2.0 mg/dL (1.6-2.3) 12/27/19 02:30 Total Bilirubin 0.7 mg/dL (0.2-1.3) 12/26/19 00:25 Direct Bilirubin 0.2 mg/dL (0.0-0.4) 12/26/19 00:25 Neonat Total Bilirubin Not Reportable 12/26/19 00:25 Neonat Direct Bilirubin Not Reportable 12/26/19 00:25 Neonat Indirect Bili Not Reportable 12/26/19 00:25 AST 118 U/L (17-59) H 12/26/19 00:25 ALT 96 U/L (<50) H 12/26/19 00:25 Alkaline Phosphatase 79 U/L (38-126) 12/26/19 00:25 Troponin I 0.365 ng/mL 12/27/19 19:45 NT-Pro-B Natriuret Pep 3510 pg/mL (<125) H 12/27/19 02:30 Total Protein 7.4 g/dL (6.3-8.2) 12/26/19 00:25 Albumin 4.1 g/dL (3.5-5.0) 12/26/19 00:25 Urine Color STRAW 12/29/19 12:48 Urine Appearance CLEAR 12/29/19 12:48 Urine pH 7.0 (5.0-9.0) 12/29/19 12:48 Ur Specific [place] 1.008 12/29/19 12:48 Urine Protein NEGATIVE mg/dL (NEGATIVE) 12/29/19 12:48 Urine Glucose (UA) NEGATIVE mg/dL (NEGATIVE) 12/29/19 12:48 Urine Ketones NEGATIVE mg/dL (NEGATIVE) 12/29/19 12:48 Urine Blood NEGATIVE (NEGATIVE) 12/29/19 12:48 Urine Nitrite NEGATIVE (NEGATIVE) 12/29/19 12:48 Urine Bilirubin NEGATIVE (NEGATIVE) 12/29/19 12:48 Urine Urobilinogen NEGATIVE mg/dL (<2.0) 12/29/19 12:48 Ur Leukocyte Esterase NEGATIVE (NEGATIVE) 12/29/19 12:48 Urine WBC (Auto) 0 /HPF 12/29/19 12:48 Urine RBC (Auto) 2 /HPF 12/29/19 12:48 U Hyaline Cast (Auto) 19 /LPF 12/26/19 01:54 Urine Bacteria (Auto) TRACE /HPF 12/26/19 01:54 Urine WBC Clumps FEW /HPF 12/26/19 01:54 Squamous Epi Cells Auto 1 /HPF 12/26/19 18:00 Urine Mucus (Auto) RARE /LPF 12/29/19 12:48 Urine Yeast (Budding) PRESENT /HPF 12/26/19 01:54 Urine Ascorbic Acid NEGATIVE (NEGATIVE) 12/29/19 12:48 Urine Opiates Screen NEGATIVE 12/26/19 01:54 Urine Methadone Screen NEGATIVE 12/26/19 01:54 Ur Barbiturates Screen NEGATIVE 12/26/19 01:54 Ur Phencyclidine Scrn NEGATIVE 12/26/19 01:54 Ur Amphetamines Screen NEGATIVE 12/26/19 01:54 U Benzodiazepines Scrn NEGATIVE 12/26/19 01:54 Urine Cocaine Screen NEGATIVE 12/26/19 01:54 U Marijuana (THC) Screen NEGATIVE 12/26/19 01:54 Serum Alcohol < 10 mg/dL (NONE DETECTED) 12/26/19 00:25 Slides for Path Review Cancelled 12/29/19 04:12 12/26/19 12/26/19 12/26/19 00:25 13:16 14:20 Troponin I 0.075 Cancelled 0.795 NT-Pro-B Natriuret Pep 7480 H 12/26/19 12/27/19 12/27/19 20:15 02:30 02:30 Troponin I 0.672 0.603 NT-Pro-B Natriuret Pep 3510 H 12/27/19 12/27/19 08:22 19:45 Troponin I 0.494 0.365 NT-Pro-B Natriuret Pep Impressions: Chest X-Ray 12/26/19 00:35 IMPRESSION: Suggestion of small bilateral pleural effusions with nonspecific patchy opacities. Findings are in the setting of enlarged cardiac silhouette. Head CT 12/26/19 00:47 IMPRESSION: No acute intracranial abnormality. Chest X-Ray 12/27/19 05:00 IMPRESSION: STABLE APPEARANCE OF THE CHEST. Stroke Is this a Stroke Patient?: No Stroke Pt being discharged on Anti-thrombolytic therapy?: No Reason(s) for not prescribing Anti-thrombolytic therapy:: Not indicated Stroke Pt being discharged on Anti-coagulation therapy?: No Reason(s) for not prescribing Anti-coagulation therapy:: Not indicated Stroke Pt being discharged on Statins?: No Reason(s) for not prescribing Statins therapy:: Not indicated Acute Heart Failure - Is this a Heart Failure Patient?: Yes Documentation of LVEF assessment?: Yes LVEF: LVEF Greater Than 40% Anticoagulant Therapy: No, document contraindications Reason(s) not Discharged on Anticoagulant Therapy: Other - not indicated Anticoagulant Therapy Reason - Other: not indicated Discharged on Evidence-Based Beta Blockers: Yes Discharged on ARNI?: No-Document Contraindications - not indicated Reason(s) not discharged on ARNI: New onset heart failure Reason(s) not Discharged on ACEI: other - not indicated ACEI Reason - Other: not indicated For LVEF <35%, discharged on Aldosterone Antagonist?: N/A (LVEF > or = 35%)
== END 2019-12-31 15:44 | disposition home or self-care (01) | DRG 291 ==
LOC: ER 00:28 → EH 03:36 → 3S 04:56 → ICU 14:57 → 3W 12-28 09:46
PROVIDERS: ADMIT Internal Medicine Critical Care Medicine; ATTEND Internal Medicine
PROC: 5A09557 Assistance with Respiratory Ventilation, Greater than 96 Consecutive Hours, Continuous Positive Airway Pressure (ICD-10-PCS; principal; 2019-12-26)
DX: I11.0 Hypertensive heart disease with heart failure (principal); I50.31 Acute diastolic (congestive) heart failure; J96.01 Acute respiratory failure with hypoxia; G93.41 Metabolic encephalopathy; Z68.44 Body mass index [BMI] 60.0-69.9, adult; N17.9 Acute kidney failure, unspecified; G47.33 Obstructive sleep apnea (adult) (pediatric); I25.2 Old myocardial infarction; B37.2 Candidiasis of skin and nail; I27.20 Pulmonary hypertension, unspecified; Z79.82 Long term (current) use of aspirin; Z79.51 Long term (current) use of inhaled steroids; Z82.49 Family history of ischemic heart disease and other diseases of the circulatory system
CPT/HCPCS: 36415; 36600; 51702; 70450; 71045; 80048; 80053; 80307; 81001; 82803; 82962; 83605; 83735; 83880; 84100; 84484; 85025; 85027; 85610; 85730; 87040; 87086; 93005; 93010; 93306; 94660; 99221; 99285; 99291; 99292; C9113; J0692; J1644; J1650; J1940; J2920; J3490; J7512

== ENCOUNTER 2020-01-10 13:52 | Inpatient (IN) | payer SELFPAY ==
--- NOTE | 2020-01-10 14:22 | ER Document Report ---
ED Medical Screen (RME) - General Chief Complaint: Chest Pain Stated Complaint: CHEST PAIN Time Seen by Provider: 01/10/20 14:17 Primary Care Provider: BROOKLYNN MUNGUIA MD [Primary Care Provider] - Follow up as needed Information source: Patient Notes: Patient presents complaining of chest pain that started around 530 this morning. Patient also reports shortness of breath. Patient denies any cough or cold symptoms. Patient denies any nausea or vomiting. Patient has a history of congestive heart failure and was just recently discharged from the hospital 10 days ago after having respiratory failure. I have greeted and performed a rapid initial assessment of this patient. A comprehensive ED assessment and evaluation of the patient, analysis of test results and completion of the medical decision making process will be conducted by additional ED providers. TRAVEL OUTSIDE OF THE [place] IN LAST 30 DAYS: No - Related Data Allergies/Adverse Reactions: No Known Allergies Allergy (Verified 03/21/18 22:33) Past Medical History - Social History Frequency of alcohol use: None Drug Abuse: None - Past Medical History Cardiac Medical History: Reports: Hx Hypertension Denies: Hx Coronary Artery Disease, Hx Heart Attack Pulmonary Medical History: Reports: Hx Sleep Apnea - He has a previously prescribed CPAP device. Denies: Hx Asthma, Hx Bronchitis, Hx COPD, Hx Pneumonia Neurological Medical History: Denies: Hx Cerebrovascular Accident, Hx Seizures Renal/ Medical History: Denies: Hx Peritoneal Dialysis Musculoskeltal Medical History: Denies Hx Arthritis Psychiatric Medical History: Reports: Hx Anxiety Denies: Hx Depression - Immunizations Hx Diphtheria, Pertussis, Tetanus Vaccination: Yes Physical Exam - Vital signs Vitals: Temp Pulse Resp BP Pulse Ox 98.8 F 75 20 142/95 H 89 L 01/10/20 13:59 01/10/20 13:59 01/10/20 13:59 01/10/20 13:59 01/10/20 13:59 - Respiratory Respiratory status: Labored - slightly. No: Cyanosis Chest status: Tender Breath sounds: Other Course - Vital Signs Vital signs: Temp Pulse Resp BP Pulse Ox 98.8 F 75 20 142/95 H 89 L 01/10/20 13:59 01/10/20 13:59 01/10/20 13:59 01/10/20 13:59 01/10/20 13:59 Doctor's Discharge - Discharge Referrals: BROOKLYNN MUNGUIA MD [Primary Care Provider] - Follow up as needed
[2020-01-10] MEDS ORDERED: KETOROLAC TROMETHAMINE INJ/PF 30 MG/1 ML SDV IV ONE (14:44)
[2020-01-10 14:57] LABS: ABSOLUTE BASOPHILS # (AUTO) 0.1 10^3/uL (0.0-0.2); ABSOLUTE EOSINOPHILS # (AUTO) 0.2 10^3/uL (0.0-0.6); ABSOLUTE LYMPHOCYTES (AUTO) 0.8 10^3/uL (0.5-4.7); ABSOLUTE MONOCYTES (AUTO) 0.6 10^3/uL (0.1-1.4); ABSOLUTE NEUT (AUTO) 9.1 10^3/uL (1.7-8.2); BASOPHILS % (AUTO) 0.8 % (0-2); EOSINOPHILS % (AUTO) 1.8 % (0-6); HEMATOCRIT 37.3 % (37.9-51.0); HEMOGLOBIN 12.6 g/dL (13.5-17.0); LYMPHOCYTES % (AUTO) 7.1 % (13-45); MEAN CORPUSCULAR HEMOGLOBIN 28.5 pg (27.0-33.4); MEAN CORPUSCULAR HGB CONC 33.9 g/dL (32.0-36.0); MEAN CORPUSCULAR VOLUME 84 fl (80-97); PLATELET COUNT 262 10^3/uL (150-450); RED BLOOD COUNT 4.43 10^6/uL (4.35-5.55); RED CELL DISTRIBUTION WIDTH 15.9 % (11.5-14.0); SEGMENTED NEUTROPHILS % (AUTO) 84.3 % (42-78); TOTAL CELLS COUNTED % (AUTO) 100 %; WHITE BLOOD COUNT 10.8 10^3/uL (4.0-10.5)
[2020-01-10 15:17] LABS: ALBUMIN 3.4 g/dL (3.5-5.0); ALKALINE PHOSPHATASE 66 U/L (38-126); ANION GAP 7 (5-19); ASPARTATE AMINO TRANSFERASE 23 U/L (17-59); BILIRUBIN,DIRECT 0.3 mg/dL (0.0-0.4); BILIRUBIN,TOTAL 0.5 mg/dL (0.2-1.3); BLOOD UREA NITROGEN 10 mg/dL (7-20); CALCIUM 8.5 mg/dL (8.4-10.2); CARBON DIOXIDE 31 mmol/L (22-30); CHLORIDE 99 mmol/L (98-107); GLUCOSE 196 mg/dL (75-110); POTASSIUM 3.8 mmol/L (3.6-5.0); TOTAL PROTEIN 6.4 g/dL (6.3-8.2)
[2020-01-10 15:28] LABS: NT PRO BNP 306 pg/mL (<125)
[2020-01-10 15:29] LABS: TROPONIN I < 0.012 ng/mL
--- NOTE | 2020-01-10 15:38 | RADIOLOGY REPORT (SQ) ---
EXAM DESCRIPTION: CHEST SINGLE VIEW IMAGES COMPLETED DATE/TIME: 01/10/2020 3:28 pm REASON FOR STUDY: destiny, cp COMPARISON: 12/27/2019 EXAM PARAMETERS: NUMBER OF VIEWS: One view. TECHNIQUE: Single frontal radiographic view of the chest acquired. RADIATION DOSE: NA LIMITATIONS: None. FINDINGS: LUNGS AND PLEURA: Ill-defined retrocardiac opacities with obscuration of the hemidiaphragm . No significant effusion. No pneumothorax. MEDIASTINUM AND HILAR STRUCTURES: No masses. Contour normal. HEART AND VASCULAR STRUCTURES: Enlarged cardiac silhouette, stable. BONES: No acute findings. HARDWARE: None in the chest. OTHER: No other significant finding. IMPRESSION: Ill-defined left retrocardiac opacities, possibly atelectasis or airspace disease. Stable enlarged cardiac silhouette. TECHNICAL DOCUMENTATION: JOB ID: [id number] 2010 [employer]- All Rights Reserved Reading location - IP/workstation name: [email or web address]
[2020-01-10] MEDS ORDERED: AZITHROMYCIN 250 MG TABLET PO ONE (15:50)
[2020-01-10] MEDS ORDERED: CEFTRIAXONE 2 GM/D5W RTU 2 GM/50 ML RTUPB IV ONE (15:50)
--- NOTE | 2020-01-10 16:02 | ER Document Report ---
ED Cardiac - General Chief Complaint: Chest Pain Stated Complaint: CHEST PAIN Time Seen by Provider: 01/10/20 14:17 Primary Care Provider: BROOKLYNN MUNGUIA MD [Primary Care Provider] - Follow up as needed Mode of Arrival: Ambulatory Information source: Patient TRAVEL OUTSIDE OF THE [place] IN LAST 30 DAYS: No - HPI Notes: Patient complains of chest pain and shortness of breath. He states for several days he has had left-sided and central chest pain. It is been constant. It is worse with exertion better with rest. It radiates across left side of his chest. Is been sharp. He states that he is also had some shortness of breath and cough. No fevers. No vomiting or diarrhea. He states he has had no known exposures to the COVID virus. - Related Data Allergies/Adverse Reactions: No Known Allergies Allergy (Verified 03/21/18 22:33) Past Medical History - General Information source: Patient - Social History Smoking Status: Never Smoker Frequency of alcohol use: None Drug Abuse: None Family History: Hypertension, Other - CHF - Past Medical History Cardiac Medical History: Reports: Hx Hypertension Denies: Hx Coronary Artery Disease, Hx Heart Attack Pulmonary Medical History: Reports: Hx Sleep Apnea - He has a previously pre scribed CPAP device. Denies: Hx Asthma, Hx Bronchitis, Hx COPD, Hx Pneumonia Neurological Medical History: Denies: Hx Cerebrovascular Accident, Hx Seizures Renal/ Medical History: Denies: Hx Peritoneal Dialysis Musculoskeletal Medical History: Denies Hx Arthritis Psychiatric Medical History: Reports: Hx Anxiety Denies: Hx Depression - Immunizations Hx Diphtheria, Pertussis, Tetanus Vaccination: Yes Review of Systems - Review of Systems Constitutional: Malaise, Weakness Cardiovascular: Chest pain. denies: Palpitations Respiratory: Cough, Short of breath -: Yes All other systems reviewed and negative Physical Exam - Vital signs Vitals: Temp Pulse Resp BP Pulse Ox 98.8 F 75 20 142/95 H 89 L 01/10/20 13:59 01/10/20 13:59 01/10/20 13:59 01/10/20 13:59 01/10/20 13:59 Interpretation: Hypertensive, Hypoxic - General General appearance: Appears well, Alert - HEENT Head: Normocephalic, Atraumatic Eyes: Normal Pupils: PERRL - Respiratory Respiratory status: No respiratory distress Chest status: Nontender Breath sounds: Decreased air movement, Rhonchi Chest palpation: Normal - Cardiovascular Rhythm: Regular Heart sounds: Normal auscultation Murmur: No - Abdominal Inspection: Morbidly Obese Distension: No distension Bowel sounds: Normal Tenderness: Nontender - Back Back: Normal, Nontender - Extremities General upper extremity: Normal inspection, Nontender, Normal color, Normal ROM, Normal temperature General lower extremity: Nontender, Edema - 2+ bilat, Normal ROM, Normal temperature. No: Av's sign - Neurological Neuro grossly intact: Yes Cognition: Normal Orientation: AAOx4 [place]acy Coma Scale Eye Opening: Spontaneous [place] Coma Scale Verbal: Oriented [place] Coma Scale Motor: Obeys Commands [place] Coma Scale Total: 15 Speech: Normal Motor strength normal: LUE, RUE, LLE, RLE Sensory: Normal - Psychological Associated symptoms: Normal affect, Normal mood - Skin Skin Temperature: Warm Skin Moisture: Dry Skin Color: Normal Course - Re-evaluation Re-evalutation: 01/10/20 15:57 Patient presents with chest pain shortness of breath. Clinical picture does not seem consistent with ischemic disease or congestive heart failure. Possibly patient has a clinical picture suggestive of pneumonia. He is got multiple opacities on x-ray. It be best if we could further define these with CT scan but patient is to heavy for the CT scanner. I will treat the patient with antibiotics. He has no known covert exposures and no fever here. He does have a mildly elevated white blood cell count. PE seems unlikely although with his body habitus it is possible. At this time we will place the patient on anticoagulants and I have discussed the situation with the hospitalist concerning possible VQ. - Vital Signs Vital signs: Temp Pulse Resp BP Pulse Ox 98.8 F 75 20 142/95 H 94 01/10/20 13:59 01/10/20 13:59 01/10/20 13:59 01/10/20 13:59 01/10/20 14:46 - Laboratory Result Diagrams: 01/10/20 14:41 01/10/20 14:41 Laboratory results interpreted by me: 01/10/20 01/10/20 01/10/20 14:41 14:41 14:41 WBC 10.8 H Hgb 12.6 L Hct 37.3 L RDW 15.9 H Lymph % (Auto) 7.1 L Absolute Neuts (auto) 9.1 H Seg Neutrophils % 84.3 H Sodium 136.7 L Carbon Dioxide 31 H Glucose 196 H NT-Pro-B Natriuret Pep 306 H Albumin 3.4 L - Diagnostic Test Radiology reviewed: Image reviewed, Reports reviewed - EKG Interpretation by Me EKG shows normal: Sinus rhythm Rate: Normal - 73 Rhythm: NSR [place]/QRS: No: Right axis deviation, Left axis deviation Discharge - Discharge Clinical Impression: Hypoxia Pneumonia Qualifiers: Pneumonia type: due to unspecified organism Laterality: unspecified laterality Lung location: unspecified part of lung Qualified Code(s): J18.9 - Pneumonia, unspecified organism Condition: Serious Disposition: ADMITTED INPATIENT Admitting Provider: Fara (Hospitalist) Unit Admitted: Telemetry Referrals: BROOKLYNN MUNGUIA MD [Primary Care Provider] - Follow up as needed
--- NOTE | 2020-01-10 18:03 | PDOC H&P ---
History of Present Illness Admission Date/PCP: 01/10/20 16:15 BROOKLYNN MUNGUIA MD Patient complains of: Shortness of breath and chest pain History of Present Illness: DUNCAN POLK is a 55 year old male with history of obesity hypoventilation, sleep apnea, who presents to the hospital after becoming dyspneic in the past 24 hours. He was also experiencing some chest pain when he woke up it was worse with movement of his arm. Also was pleuritic and limited his breathing. He thinks he might of pulled a muscle. He does not recall sleeping on that side. He denies any fever or chills but does endorse a nonproductive cough. His cough is not all that pronounced. He has been taking the medications he was discharged with religiously. He denies any sick contacts. Did admit to diaphoresis this morning. Notably he was just treated in the hospital for about 7 days earlier this month for diastolic heart failure and fluid overload state as well as respiratory hypercapnic failure. He was seen by pulmonology at that time and was diuresed appropriately. This time he comes in with a white count which is similar to before. He complains of leg swelling but his BNP is markedly decreased from his previous presentation. Past Medical History Cardiac Medical History: Reports: Hypertension Denies: Coronary Artery Disease, Myocardial Infarction Pulmonary Medical History: Reports: Sleep Apnea - He has a previously prescribed CPAP device. Denies: Asthma, Bronchitis, Chronic Obstructive Pulmonary Disease (COPD), Pneumonia Neurological Medical History: Denies: Seizures Musculoskeltal Medical History: Denies: Arthritis Psychiatric Medical History: Denies: Depression Hematology: Denies: Anemia Past Surgical History Past Surgical History: Reports: Other Social History Smoking Status: Never Smoker Frequency of Alcohol Use: None Hx Recreational Drug Use: No Drugs: None - Advance Directive Resuscitation Status: Full Code Family History Family History: Hypertension, Other - CHF Parental Family History Reviewed: Yes Children Family History Reviewed: NA Sibling(s) Family History Reviewed.: NA Medication/Allergy Home Medications: Hydrocodone/Acetaminophen [[place] 10-325 mg Tablet] 1 tab PO Q6HP PRN 03/22/18 Albuterol Sulfate [Proair HFA Inhalation Aerosol 8.5 gm MDI] 2 puff IH Q4HP PRN 12/26/19 Diltiazem HCl [Cartia Xt] 240 mg PO DAILY 12/26/19 Tamsulosin HCl [Flomax 0.4 mg Cap.sr] 0.4 mg PO DAILY 12/26/19 Acetazolamide [Diamox 250 mg Tab] 250 mg PO Q12 7 Days tablet 12/31/19 Aspirin [Aspirin 81 mg Chewable Tablet] 162 mg PO DAILY tab.chew 12/31/19 Furosemide [Lasix 40 mg Tablet] 40 mg PO QAM 30 Days tablet 12/31/19 Metoprolol Tartrate [Lopressor 25 mg Tablet] 25 mg PO Q12 tablet 12/31/19 Allergies/Adverse Reactions: No Known Allergies Allergy (Verified 03/21/18 22:33) Review of Systems Constitutional: ABSENT: chills, fatigue, fever(s) Eyes: ABSENT: visual disturbances Nose, Mouth, and Throat: ABSENT: headache(s) Cardiovascular: PRESENT: chest pain, orthropnea - chronic Respiratory: PRESENT: cough, dyspnea. ABSENT: hemoptysis, sputum Gastrointestinal: ABSENT: abdominal pain, diarrhea, nausea, vomiting Genitourinary: PRESENT: other - urine felt hot but not burning Musculoskeletal: ABSENT: back pain Integumentary: PRESENT: diaphoresis Neurological: ABSENT: dizziness Psychiatric: ABSENT: anxiety Endocrine: ABSENT: polyuria Hematologic/Lymphatic: ABSENT: easy bruising Allergic/Immunologic: ABSENT: seasonal rhinorrhea Physical Exam Vital Signs: Temp Pulse Resp BP Pulse Ox 98.8 F 75 21 H 161/76 H 95 01/10/20 13:59 01/10/20 13:59 01/10/20 16:01 01/10/20 16:01 01/10/20 16:01 Intake & Output 01/09/20 01/10/20 01/11/20 06:59 06:59 06:59 Intake Total 50 Balance 50 General appearance: PRESENT: no acute distress, cooperative, morbidly obese. ABSENT: mild distress Eye exam: PRESENT: EOMI Neck exam: ABSENT: JVD Respiratory exam: PRESENT: crackles - mild, symmetrical, unlabored. ABSENT: t achypnea, wheezes Cardiovascular exam: PRESENT: RRR, +S1, +S2. ABSENT: tachycardia GI/Abdominal exam: PRESENT: soft. ABSENT: rebound, rigid, tenderness Extremities exam: PRESENT: pedal edema, +1 edema. ABSENT: calf tenderness Neurological exam: PRESENT: alert, awake, oriented to person, oriented to place, oriented to time Psychiatric exam: ABSENT: agitated, anxious Focused psych exam: ABSENT: pressured speech Results Laboratory Results: 01/10/20 14:41 01/10/20 14:41 01/10/20 01/10/20 14:41 14:41 WBC 10.8 H RBC 4.43 Hgb 12.6 L Hct 37.3 L MCV 84 MCH 28.5 MCHC 33.9 RDW 15.9 H Plt Count 262 Seg Neutrophils % 84.3 H Sodium 136.7 L Potassium 3.8 Chloride 99 Carbon Dioxide 31 H Anion Gap 7 BUN 10 Creatinine 0.62 Est GFR ( Amer) > 60 Glucose 196 H Calcium 8.5 Magnesium 1.8 Total Bilirubin 0.5 AST 23 Alkaline Phosphatase 66 Total Protein 6.4 Albumin 3.4 L 01/10/20 14:41 Troponin I < 0.012 NT-Pro-B Natriuret Pep 306 H Impressions: Chest X-Ray 01/10/20 14:20 IMPRESSION: Ill-defined left retrocardiac opacities, possibly atelectasis or airspace disease. Stable enlarged cardiac silhouette. Assessment and Plan - Diagnosis (1) Pneumonia Qualifiers: Pneumonia type: due to unspecified organism Laterality: unspecified laterality Lung location: unspecified part of lung Qualified Code(s): J18.9 - Pneumonia, unspecified organism Is this a current diagnosis for this admission?: Yes Plan: Has white count elevation, lymphopenia, and still short of breath with some infiltrates on chest x-ray given despite significant decrease of his BNP. We will treat for pneumonia as he did not receive antibiotics before. Check COVID-19 Ceftriaxone and azithromycin Dexamethasone given hypoxia-pending COVID results. (2) Hypoxia Is this a current diagnosis for this admission?: Yes Plan: Hypoxic to 88% on this admission. May be secondary to pneumonia or simply obesity hypoventilation. Nasal cannula supplementation. (3) Chest pain Qualifiers: Chest pain type: unspecified Qualified Code(s): R07.9 - Chest pain, unspecified Is this a current diagnosis for this admission?: Yes Plan: Sounds like musculoskeletal chest wall pain. Associated with arm movements. Try lidocaine patch. Troponin is negative but we will repeat another troponin level. (4) Morbid obesity with alveolar hypoventilation Is this a current diagnosis for this admission?: Yes Plan: Noticed to have chronic hypercapnic respiratory failure on prior hospitalization. Will benefit from weight loss and bariatrics. (5) Obstructive sleep apnea Is this a current diagnosis for this admission?: Yes Plan: Sleeps with CPAP machine at home. Patient has significant hypercapnic respiratory failure on last admission. I will have patient sleep on BiPAP while here. Check a blood gas in the morning. (6) Diastolic heart failure Qualifiers: Heart failure chronicity: chronic Qualified Code(s): I50.32 - Chronic diastolic (congestive) heart failure Is this a current diagnosis for this admission?: Yes Plan: BNP is actually significantly decreased from his last admission. We will continue his home diuretics. - Time Time Spent with patient: 35 or more minutes Anticipated Discharge Disposition: Home, Self Care Anticipated Discharge Timeframe: within 48 hours
[2020-01-10] MEDS ORDERED: ACETAMINOPHEN 325 MG TABLET PO PRN (18:04)
[2020-01-10] MEDS ORDERED: ALBUTEROL SULFATE HFA (90 MCG/PUFF) 8 GM MDI IH PRN (18:04)
[2020-01-10] MEDS ORDERED: ALBUTEROL SULFATE HFA (90 MCG/PUFF) 200 PUFF/8.5 GM MDI IH PRN (18:33)
[2020-01-10] MEDS ORDERED: FUROSEMIDE 40 MG TABLET PO ONE (19:30)
--- NOTE | 2020-01-10 20:59 | EKG REPORT ---
SEVERITY:- BORDERLINE ECG - SINUS RHYTHM BORDERLINE R WAVE PROGRESSION, ANTERIOR LEADS BORDERLINE T ABNORMALITIES, DIFFUSE LEADS : Confirmed by: Eric Olivares MD 10-Jan-2020 20:58:55
[2020-01-10] MEDS: HYDROCODONE/ACETAMINOPHEN 10-325 MG TABLET PO PRN (22:35)
[2020-01-10] MEDS: METOPROLOL TARTRATE 25 MG TABLET PO SCH (22:36)
[2020-01-10] MEDS: FAMOTIDINE 20 MG TABLET PO SCH (22:36)
[2020-01-10] MEDS: GUAIFENESIN 600 MG TABLET.SA PO SCH (22:36)
[2020-01-11 05:24] LABS: ABSOLUTE EOSINOPHILS # (AUTO) 0.3 10^3/uL (0.0-0.6); ABSOLUTE LYMPHOCYTES (AUTO) 0.9 10^3/uL (0.5-4.7); ABSOLUTE MONOCYTES (AUTO) 0.6 10^3/uL (0.1-1.4); ABSOLUTE NEUT (AUTO) 6.5 10^3/uL (1.7-8.2); BASOPHILS % (AUTO) 0.5 % (0-2); EOSINOPHILS % (AUTO) 3.1 % (0-6); HEMATOCRIT 36.7 % (37.9-51.0); HEMOGLOBIN 12.1 g/dL (13.5-17.0); LYMPHOCYTES % (AUTO) 10.8 % (13-45); MEAN CORPUSCULAR HEMOGLOBIN 27.8 pg (27.0-33.4); MEAN CORPUSCULAR VOLUME 84 fl (80-97); MONOCYTES % (AUTO) 6.7 % (3-13); RED BLOOD COUNT 4.36 10^6/uL (4.35-5.55); RED CELL DISTRIBUTION WIDTH 15.8 % (11.5-14.0); SEGMENTED NEUTROPHILS % (AUTO) 78.9 % (42-78); TOTAL CELLS COUNTED % (AUTO) 100 %; WHITE BLOOD COUNT 8.3 10^3/uL (4.0-10.5)
[2020-01-11 05:37] LABS: ANION GAP 7 (5-19); BLOOD UREA NITROGEN 13 mg/dL (7-20); CALCIUM 8.5 mg/dL (8.4-10.2); CARBON DIOXIDE 32 mmol/L (22-30); CHLORIDE 100 mmol/L (98-107); GLUCOSE 117 mg/dL (75-110)
[2020-01-11 05:42] LABS: PLATELET COUNT 106 10^3/uL (150-450)
[2020-01-11] MEDS: ENOXAPARIN SODIUM INJ 40 MG/0.4 ML DISP.SYRIN SUBCUT SCH (09:24)
[2020-01-11] MEDS: METOPROLOL TARTRATE 25 MG TABLET PO SCH ×2 (09:24→21:07)
[2020-01-11] MEDS: TAMSULOSIN HCL 0.4 MG CAP.SR.24H PO SCH (09:24)
[2020-01-11] MEDS: FAMOTIDINE 20 MG TABLET PO SCH ×2 (09:25→21:07)
[2020-01-11] MEDS: DILTIAZEM HCL 240 MG CAPSULE.CR PO SCH (09:25)
[2020-01-11] MEDS: ASPIRIN 81 MG TABLET, ENT COATED PO SCH (09:25)
[2020-01-11] MEDS: FUROSEMIDE 40 MG TABLET PO SCH (09:25)
[2020-01-11] MEDS: GUAIFENESIN 600 MG TABLET.SA PO SCH ×2 (09:25→21:07)
[2020-01-11] MEDS: AZITHROMYCIN 250 MG in DEXTROSE 5%-WATER 250 ML IV SCH (09:26)
[2020-01-11] MEDS: HYDROCODONE/ACETAMINOPHEN 10-325 MG TABLET PO PRN ×2 (09:29→17:33)
[2020-01-11] MEDS: CEFTRIAXONE 2 GM/D5W RTU 2 GM/50 ML RTUPB IV SCH (13:17)
[2020-01-11] MEDS ORDERED: LIDOCAINE 5% (700 MG) TRANSDERMAL ADH..PATCH TP PRN (15:52)
--- NOTE | 2020-01-11 16:00 | PDOC PROGRESS REPORT ---
Subjective Progress Note for:: 01/11/20 Subjective:: Patient states he is feeling well today. Had a comfortable night with his BiPAP. Denies shortness of breath this morning. Has been doing a good job of keeping his leg elevated when sitting down. Reason For Visit: PNEUMONIA Physical Exam Vital Signs: Temp Pulse Resp BP Pulse Ox 97.5 F 66 22 H 138/62 H 92 01/11/20 11:31 01/11/20 14:00 01/11/20 11:31 01/11/20 11:31 01/11/20 11:31 Intake & Output 01/10/20 01/11/20 01/12/20 06:59 06:59 06:59 Intake Total 50 Balance 50 Weight 180.076 kg General appearance: PRESENT: no acute distress, cooperative, morbidly obese. ABSENT: disheveled, hard of hearing Head exam: PRESENT: normocephalic Neck exam: ABSENT: JVD Respiratory exam: PRESENT: clear to auscultation jess, decreased breath sounds, symmetrical, unlabored. ABSENT: tachypnea, wheezes Cardiovascular exam: PRESENT: RRR, +S1, +S2. ABSENT: tachycardia GI/Abdominal exam: PRESENT: soft. ABSENT: rebound, rigid, tenderness Extremities exam: PRESENT: +2 edema Neurological exam: PRESENT: alert, awake, oriented to person, oriented to place, oriented to time, oriented to situation, other - Awake and fully conversational. ABSENT: altered Psychiatric exam: ABSENT: agitated, anxious Results Laboratory Results: 01/11/20 04:29 01/11/20 04:29 01/11/20 01/11/20 04:29 04:29 WBC 8.3 RBC 4.36 Hgb 12.1 L Hct 36.7 L MCV 84 MCH 27.8 MCHC 33.0 RDW 15.8 H Plt Count 106 L Seg Neutrophils % 78.9 H Sodium 138.7 Potassium 4.0 Chloride 100 Carbon Dioxide 32 H Anion Gap 7 BUN 13 Creatinine 0.69 Est GFR ( Amer) > 60 Glucose 117 H Calcium 8.5 01/10/20 01/10/20 14:41 20:35 Troponin I < 0.012 < 0.012 NT-Pro-B Natriuret Pep 306 H Impressions: Chest X-Ray 01/10/20 14:20 IMPRESSION: Ill-defined left retrocardiac opacities, possibly atelectasis or airspace disease. Stable enlarged cardiac silhouette. Assessment and Plan - Diagnosis (1) Pneumonia Qualifiers: Pneumonia type: due to unspecified organism Laterality: unspecified laterality Lung location: unspecified part of lung Qualified Code(s): J18.9 - Pneumonia, unspecified organism Is this a current diagnosis for this admission?: Yes Plan: Has white count elevation, lymphopenia, and still short of breath with some infiltrates on chest x-ray given despite significant decrease of his BNP. We will treat for pneumonia as he did not receive antibiotics before. Pending COVID-19 Ceftriaxone and azithromycin Leukocytosis actually resolving (2) Hypoxia Is this a current diagnosis for this admission?: Yes Plan: Hypoxic to 88% on this admission. May be secondary to pneumonia or simply obesity hypoventilation. Nasal cannula supplementation. Incentive spirometer. Albuterol. (3) Chest pain Qualifiers: Chest pain type: unspecified Qualified Code(s): R07.9 - Chest pain, unspecified Is this a current diagnosis for this admission?: Yes Plan: Sounds like musculoskeletal chest wall pain. Associated with arm movements. Try lidocaine patch. Troponins Negative . (4) Morbid obesity with alveolar hypoventilation Is this a current diagnosis for this admission?: Yes Plan: Noticed to have chronic hypercapnic respiratory failure on prior hospitalization. Will benefit from weight loss and bariatrics. (5) Obstructive sleep apnea Is this a current diagnosis for this admission?: Yes Plan: Sleeps with CPAP machine at home. Patient has significant chronic hypercapnic respiratory failure on last admission. I will have patient sleep on BiPAP while here. Monitor mental status for evidence of excessive CO2 retention. (6) Diastolic heart failure Qualifiers: Heart failure chronicity: chronic Qualified Code(s): I50.32 - Chronic diastolic (congestive) heart failure Is this a current diagnosis for this admission?: Yes Plan: BNP is actually significantly decreased from his last admission. We will continue his home diuretics. - Time Time Spent with patient: Less than 15 minutes Anticipated Discharge Disposition: Home, Self Care Anticipated Discharge Timeframe: within 48 hours
[2020-01-11] MEDS: ALBUTEROL SULFATE HFA (90 MCG/PUFF) 200 PUFF/8.5 GM MDI IH SCH (17:27)
[2020-01-11] MEDS ORDERED: ALBUTEROL SULFATE HFA (90 MCG/PUFF) 8 GM MDI IH SCH (18:00)
[2020-01-12] MEDS: ALBUTEROL SULFATE HFA (90 MCG/PUFF) 200 PUFF/8.5 GM MDI IH SCH ×5 (01:00→18:13)
[2020-01-12] MEDS: HYDROCODONE/ACETAMINOPHEN 10-325 MG TABLET PO PRN ×3 (01:33→18:15)
[2020-01-12 05:29] LABS: BLOOD UREA NITROGEN 11 mg/dL (7-20); C-REACTIVE PROTEIN 66.9 mg/L (<10.0); CALCIUM 8.6 mg/dL (8.4-10.2); GLUCOSE 109 mg/dL (75-110); POTASSIUM 4.1 mmol/L (3.6-5.0)
[2020-01-12 05:32] LABS: CARBON DIOXIDE 35 mmol/L (22-30); CHLORIDE 100 mmol/L (98-107)
[2020-01-12 05:58] LABS: ANION GAP 3 (5-19)
[2020-01-12 07:19] LABS: ABSOLUTE EOSINOPHILS # (AUTO) 0.3 10^3/uL (0.0-0.6); HEMATOCRIT 37.4 % (37.9-51.0); HEMOGLOBIN 12.4 g/dL (13.5-17.0); MEAN CORPUSCULAR HEMOGLOBIN 27.8 pg (27.0-33.4); MEAN CORPUSCULAR VOLUME 84 fl (80-97); TOTAL CELLS COUNTED % (AUTO) 100 %
[2020-01-12 07:20] LABS: LYMPHOCYTES % (AUTO) 14.6 % (13-45); MEAN CORPUSCULAR HGB CONC 33.1 g/dL (32.0-36.0); RED BLOOD COUNT 4.47 10^6/uL (4.35-5.55); RED CELL DISTRIBUTION WIDTH 15.7 % (11.5-14.0); SEGMENTED NEUTROPHILS % (AUTO) 73.9 % (42-78); WHITE BLOOD COUNT 7.6 10^3/uL (4.0-10.5)
[2020-01-12 07:21] LABS: ABSOLUTE LYMPHOCYTES (AUTO) 1.1 10^3/uL (0.5-4.7); ABSOLUTE MONOCYTES (AUTO) 0.5 10^3/uL (0.1-1.4); ABSOLUTE NEUT (AUTO) 5.6 10^3/uL (1.7-8.2); BASOPHILS % (AUTO) 0.5 % (0-2); EOSINOPHILS % (AUTO) 4.5 % (0-6); MONOCYTES % (AUTO) 6.5 % (3-13); PLATELET COUNT 344 10^3/uL (150-450)
[2020-01-12] MEDS: FAMOTIDINE 20 MG TABLET PO SCH ×2 (10:01→21:08)
[2020-01-12] MEDS: TAMSULOSIN HCL 0.4 MG CAP.SR.24H PO SCH (10:02)
[2020-01-12] MEDS: DILTIAZEM HCL 240 MG CAPSULE.CR PO SCH (10:02)
[2020-01-12] MEDS: ASPIRIN 81 MG TABLET, ENT COATED PO SCH (10:02)
[2020-01-12] MEDS: AZITHROMYCIN 250 MG in DEXTROSE 5%-WATER 250 ML IV SCH (10:03)
[2020-01-12] MEDS: GUAIFENESIN 600 MG TABLET.SA PO SCH ×2 (10:03→21:08)
[2020-01-12] MEDS: ENOXAPARIN SODIUM INJ 40 MG/0.4 ML DISP.SYRIN SUBCUT SCH (10:03)
[2020-01-12] MEDS: FUROSEMIDE 40 MG TABLET PO SCH (10:03)
[2020-01-12] MEDS: METOPROLOL TARTRATE 25 MG TABLET PO SCH ×2 (10:03→21:08)
[2020-01-12] MEDS: CEFTRIAXONE 2 GM/D5W RTU 2 GM/50 ML RTUPB IV SCH (14:16)
--- NOTE | 2020-01-12 14:20 | PDOC PROGRESS REPORT ---
Subjective Progress Note for:: 01/12/20 Subjective:: The patient is resting comfortably in the chair. He just [place] [facility] [place] as his COVID serology was negative. He still states that he has significant exertional dyspnea and if he even walked 10 feet to the bathroom and 10 feet back he would be exhausted. Normally he is not on home oxygen and since his hospitalization in December his pulse oximetry is were mostly in the 90 to 95% range. Reason For Visit: PNEUMONIA Physical Exam Vital Signs: Temp Pulse Resp BP Pulse Ox 97.9 F 78 16 139/61 H 94 01/12/20 08:21 01/12/20 07:37 01/12/20 07:37 01/12/20 07:37 01/12/20 07:37 Intake & Output 01/11/20 01/12/20 01/13/20 06:59 06:59 06:59 Intake Total 50 700 250 Balance 50 700 250 Weight 180.076 kg 184.4 kg General appearance: PRESENT: no acute distress, cooperative, morbidly obese, well-developed, other - Nasal cannula in place Head exam: PRESENT: atraumatic, normocephalic Ear exam: PRESENT: normal external ear exam. ABSENT: bleeding, drainage Mouth exam: PRESENT: moist, tongue midline Respiratory exam: PRESENT: rales - Rales at left base, symmetrical, unlabored. ABSENT: rhonchi, tachypnea, wheezes Cardiovascular exam: PRESENT: RRR, +S1, +S2, other - Distant heart sounds likely due to body habitus. ABSENT: bradycardia, diastolic murmur, irregular rhythm, systolic murmur, tachycardia GI/Abdominal exam: PRESENT: normal bowel sounds, soft, other - Pendulous abdomen. ABSENT: tenderness Rectal exam: PRESENT: deferred Gentrourinary exam: ABSENT: indwelling catheter Extremities exam: PRESENT: pedal edema, +1 edema - Patient reports that this is an improvement over his usual lower extremity edema Musculoskeletal exam: PRESENT: ambulatory - Limited by exertional dyspnea. ABSENT: deformity, dislocation Neurological exam: PRESENT: alert, awake, oriented to person, oriented to place, oriented to time, oriented to situation, CN II-XII grossly intact. ABSENT: altered, motor sensory deficit Psychiatric exam: PRESENT: appropriate affect, normal mood. ABSENT: agitated, anxious Focused psych exam: ABSENT: delusional, paranoid, restlessness Skin exam: PRESENT: dry, normal color, warm. ABSENT: rash Results Laboratory Results: 01/12/20 06:40 01/12/20 04:06 01/12/20 01/12/20 01/12/20 04:06 04:06 06:40 WBC Cancelled 7.6 RBC Cancelled 4.47 Hgb Cancelled 12.4 L Hct Cancelled 37.4 L MCV Cancelled 84 MCH Cancelled 27.8 MCHC Cancelled 33.1 RDW Cancelled 15.7 H Plt Count Cancelled 344 D Seg Neutrophils % Cancelled 73.9 Sodium 138.4 Potassium 4.1 Chloride 100 Carbon Dioxide 35 H Anion Gap 3 L BUN 11 Creatinine 0.62 Est GFR ( Amer) > 60 Glucose 109 Calcium 8.6 Ferritin 156.00 C-Reactive Protein 66.9 H 01/10/20 01/10/20 14:41 20:35 Troponin I < 0.012 < 0.012 NT-Pro-B Natriuret Pep 306 H Impressions: Chest X-Ray 01/10/20 14:20 IMPRESSION: Ill-defined left retrocardiac opacities, possibly atelectasis or airspace disease. Stable enlarged cardiac silhouette. Assessment and Plan - Diagnosis (1) Pneumonia Qualifiers: Pneumonia type: due to unspecified organism Laterality: unspecified la terality Lung location: unspecified part of lung Qualified Code(s): J18.9 - Pneumonia, unspecified organism Is this a current diagnosis for this admission?: Yes Plan: Left lower lobe. COVID serology negative. Continue antibiotics. (2) Hypoxia Is this a current diagnosis for this admission?: Yes Plan: Continue oxygen supplementation (3) Chest pain Qualifiers: Chest pain type: unspecified Qualified Code(s): R07.9 - Chest pain, unspecified Is this a current diagnosis for this admission?: Yes Plan: Actually seems to be more of a pleuritic discomfort. It is on the left side. He has a left lower lobe pneumonia. Consider anti-inflammatory treatment. (4) Morbid obesity with alveolar hypoventilation Is this a current diagnosis for this admission?: Yes Plan: Appears to be comfortable on nasal cannula during the day. Continue BiPAP at night. (5) Pulmonary hypertension Is this a current diagnosis for this admission?: Yes Plan: Would benefit from ongoing use of BiPAP as well as weight loss. (6) Diastolic heart failure Qualifiers: Heart failure chronicity: chronic Qualified Code(s): I50.32 - Chronic diastolic (congestive) heart failure Is this a current diagnosis for this admission?: Yes Plan: Stable on current regimen (7) Obstructive sleep apnea Is this a current diagnosis for this admission?: Yes Plan: Continue BiPAP at night. (8) Gram-positive cocci bacteremia Is this a current diagnosis for this admission?: Yes Plan: Blood cultures positive. Coagulase-negative staph identified. Likely contaminant. Continue antibiotics at this time. - Time Time Spent with patient: 15-24 minutes Medications reviewed and adjusted accordingly: Yes Anticipated Discharge Disposition: Home, Self Care Anticipated Discharge Timeframe: within 72 hours
--- NOTE | 2020-01-12 15:12 | EKG REPORT ---
SEVERITY:- BORDERLINE ECG - SINUS RHYTHM CONSIDER ANTERIOR INFARCT BORDERLINE T ABNORMALITIES, ANTERIOR LEADS : Confirmed by: Eric Olivares MD 12-Jan-2020 15:11:37
[2020-01-13] MEDS: ALBUTEROL SULFATE HFA (90 MCG/PUFF) 200 PUFF/8.5 GM MDI IH SCH ×5 (00:23→23:15)
[2020-01-13] MEDS: HYDROCODONE/ACETAMINOPHEN 10-325 MG TABLET PO PRN ×2 (03:35→11:45)
[2020-01-13] MEDS ORDERED: ENOXAPARIN SODIUM INJ 100 MG/1 ML DISP.SYRIN SUBCUT SCH (04:30)
[2020-01-13] MEDS ORDERED: ENOXAPARIN SODIUM INJ 150 MG/1 ML DISP.SYRIN SUBCUT ONE ×2 (05:00→05:52)
--- NOTE | 2020-01-13 07:40 | EKG REPORT ---
SEVERITY:- ABNORMAL ECG - ATRIAL FLUTTER, A-RATE 288 CONSIDER ANTERIOR INFARCT BORDERLINE T ABNORMALITIES, DIFFUSE LEADS PROLONGED QT INTERVAL : Confirmed by: Eric Olivares MD 13-Jan-2020 07:39:59
[2020-01-13] MEDS: FUROSEMIDE 40 MG TABLET PO SCH (08:29)
[2020-01-13] MEDS: ASPIRIN 81 MG TABLET, ENT COATED PO SCH (10:11)
[2020-01-13] MEDS: DILTIAZEM HCL 240 MG CAPSULE.CR PO SCH (10:12)
[2020-01-13] MEDS: TAMSULOSIN HCL 0.4 MG CAP.SR.24H PO SCH (10:12)
[2020-01-13] MEDS: FAMOTIDINE 20 MG TABLET PO SCH ×2 (10:12→21:20)
[2020-01-13] MEDS: METOPROLOL TARTRATE 25 MG TABLET PO SCH ×2 (10:12→21:21)
[2020-01-13] MEDS: GUAIFENESIN 600 MG TABLET.SA PO SCH ×2 (10:12→21:20)
[2020-01-13] MEDS: AZITHROMYCIN 250 MG in DEXTROSE 5%-WATER 250 ML IV SCH (10:24)
[2020-01-13] MEDS: CEFTRIAXONE 2 GM/D5W RTU 2 GM/50 ML RTUPB IV SCH (14:47)
--- NOTE | 2020-01-13 18:25 | PDOC PROGRESS REPORT ---
Subjective Subjective:: Patient admitted for community-acquired pneumonia, found to be COVID negative. Blood culture growing Staphylococcus in 2/2 bottles, speciation and sensitivities pending. Patient continued on ceftriaxone/azithromycin with gradual consistent improvement daily. CO2 and CRP were elevated. He is maintained on 2.5 L nasal cannula saturation at 90%. Other than some shortness of breath and mild cough patient has no new complaints. Reason For Visit: PNEUMONIA Physical Exam Vital Signs: Temp Pulse Resp BP Pulse Ox 98.0 F 78 16 141/70 H 97 01/13/20 15:43 01/13/20 15:43 01/13/20 15:43 01/13/20 15:43 01/13/20 15:43 Intake & Output 01/12/20 01/13/20 01/14/20 06:59 06:59 06:59 Intake Total 324 261 8752 Output Total 100 Balance 279 793 8482 Weight 184.4 kg 184.4 kg General appearance: PRESENT: no acute distress, morbidly obese, well-developed, well-nourished Head exam: PRESENT: atraumatic, normocephalic Mouth exam: PRESENT: moist Respiratory exam: PRESENT: rhonchi - Mild. ABSENT: rales, wheezes Cardiovascular exam: PRESENT: RRR. ABSENT: diastolic murmur, rubs, systolic murmur GI/Abdominal exam: PRESENT: normal bowel sounds, soft. ABSENT: distended, guarding, mass, organolmegaly, rebound, tenderness Neurological exam: PRESENT: alert, awake, oriented to person, oriented to place, oriented to time, oriented to situation Psychiatric exam: PRESENT: appropriate affect, normal mood Skin exam: PRESENT: dry, intact, warm Results Laboratory Results: 01/12/20 06:40 01/12/20 04:06 01/10/20 18:56 Blood Blood Culture (PCR) - Final Staphylococcus Species 01/10/20 16:30 Blood Blood Culture (PCR) - Final Staphylococcus Species 01/10/20 01/10/20 14:41 20:35 Troponin I < 0.012 < 0.012 NT-Pro-B Natriuret Pep 306 H Impressions: Chest X-Ray 01/10/20 14:20 IMPRESSION: Ill-defined left retrocardiac opacities, possibly atelectasis or airspace disease. Stable enlarged cardiac silhouette. Assessment and Plan - Diagnosis (1) Pneumonia Qualifiers: Pneumonia type: due to unspecified organism Laterality: unspecified laterality Lung location: unspecified part of lung Qualified Code(s): J18.9 - Pneumonia, unspecified organism Is this a current diagnosis for this admission?: Yes Plan: Seen on imaging in left lower lobe. COVID serology negative. Stopped ceftriaxone, started vancomycin IV, continued azithromycin Blood cultures growing coag negative staph in 1/2 bottles, contaminant Repeat blood cultures (2) Gram-positive cocci bacteremia Is this a current diagnosis for this admission?: Yes Plan: Blood cultures positive. Coagulase-negative staph identified. Likely contaminant. Continue antibiotics at this time. (3) Hypoxia Is this a current diagnosis for this admission?: Yes Plan: Stable Continue oxygen supplementation to maintain saturation 89 to 94% in setting of chronic CO2 retention with OHS and JASON (4) Diastolic heart failure Qualifiers: Heart failure chronicity: chronic Qualified Code(s): I50.32 - Chronic diastolic (congestive) heart failure Is this a current diagnosis for this admission?: Yes Plan: Stable on current regimen (5) Pulmonary hypertension Is this a current diagnosis for this admission?: Yes (6) Chest pain Qualifiers: Chest pain type: unspecified Qualified Code(s): R07.9 - Chest pain, unspecified Is this a current diagnosis for this admission?: Yes Plan: Pleuritic pain and location of his pneumonia (9) Morbid obesity with alveolar hypoventilation Is this a current diagnosis for this admission?: Yes (10) Obstructive sleep apnea Is this a current diagnosis for this admission?: Yes - Time Time Spent with patient: 25-34 minutes Medications reviewed and adjusted accordingly: Yes Anticipated Discharge Disposition: Home, Self Care Anticipated Discharge Timeframe: within 48 hours - Inpatient Certification Based on my medical assessment, after consideration of the patient's comorbidities, presenting symptoms, or acuity I expect that the services needed warrant INPATIENT care.: Yes I certify that my determination is in accordance with my understanding of Medicare's requirements for reasonable and necessary INPATIENT services [42 CFR 412.3e].: Yes Medical Necessity: Significant Comorbidiites Make Outpatient Treatment Too Risky, Need Close Monitoring Due to Risk of Patient Decompensation, Need for IV Antibiotics, Risk of Complication if Not Cared For in Hospital, Risk of Diagnosis Which Will Require Inpatient Eval/Care/Monitoring
[2020-01-13] MEDS ORDERED: VANCOMYCIN HCL INJ 500 MG VIAL IV SCH (18:30)
[2020-01-13] MEDS: ENOXAPARIN SODIUM INJ 150 MG/1 ML DISP.SYRIN SUBCUT SCH (18:46)
[2020-01-14] MEDS: ENOXAPARIN SODIUM INJ 150 MG/1 ML DISP.SYRIN SUBCUT SCH ×2 (05:10→17:30)
[2020-01-14] MEDS: ALBUTEROL SULFATE HFA (90 MCG/PUFF) 200 PUFF/8.5 GM MDI IH SCH ×4 (05:11→23:20)
[2020-01-14] MEDS: HYDROCODONE/ACETAMINOPHEN 10-325 MG TABLET PO PRN ×3 (05:17→21:41)
[2020-01-14 07:29] LABS: BLOOD UREA NITROGEN 7 mg/dL (7-20); CALCIUM 8.9 mg/dL (8.4-10.2); CHLORIDE 92 mmol/L (98-107); GLUCOSE 116 mg/dL (75-110); POTASSIUM 4.4 mmol/L (3.6-5.0)
[2020-01-14 07:36] LABS: ANION GAP 5 (5-19)
[2020-01-14 07:37] LABS: CARBON DIOXIDE 42 mmol/L (22-30)
[2020-01-14] MEDS: FUROSEMIDE 40 MG TABLET PO SCH (07:48)
[2020-01-14] MEDS: DILTIAZEM HCL 240 MG CAPSULE.CR PO SCH (09:41)
[2020-01-14] MEDS: TAMSULOSIN HCL 0.4 MG CAP.SR.24H PO SCH (09:43)
[2020-01-14] MEDS: GUAIFENESIN 600 MG TABLET.SA PO SCH ×2 (09:44→21:40)
[2020-01-14] MEDS: METOPROLOL TARTRATE 25 MG TABLET PO SCH ×2 (09:44→21:40)
[2020-01-14] MEDS: ASPIRIN 81 MG TABLET, ENT COATED PO SCH (09:45)
[2020-01-14] MEDS: FAMOTIDINE 20 MG TABLET PO SCH ×2 (09:45→21:41)
[2020-01-14] MEDS: CEFTRIAXONE 2 GM/D5W RTU 2 GM/50 ML RTUPB IV SCH (09:46)
[2020-01-14 09:52] LABS: APPEARANCE,URINE CLEAR; BILIRUBIN,URINE NEGATIVE (NEGATIVE); COLOR,URINE STRAW; GLUCOSE, URINE NEGATIVE (NEGATIVE); KETONES,URINE NEGATIVE (NEGATIVE); LEUKOCYTE ESTERASE,URINE NEGATIVE (NEGATIVE); NITRITE,URINE NEGATIVE (NEGATIVE); PROTEIN,URINE NEGATIVE (NEGATIVE); URINE SPECIFIC GRAVITY 1.003; UROBILINOGEN,URINE NEGATIVE mg/dL (<2.0)
[2020-01-14] MEDS ORDERED: AZITHROMYCIN 250 MG TABLET PO SCH (10:00)
[2020-01-14 10:47] LABS: HEMOGLOBIN 11.9 g/dL (13.5-17.0); MEAN CORPUSCULAR HEMOGLOBIN 27.5 pg (27.0-33.4); MEAN CORPUSCULAR VOLUME 83 fl (80-97); PLATELET COUNT 319 10^3/uL (150-450); RED BLOOD COUNT 4.32 10^6/uL (4.35-5.55); RED CELL DISTRIBUTION WIDTH 15.4 % (11.5-14.0); WHITE BLOOD COUNT 7.6 10^3/uL (4.0-10.5)
--- NOTE | 2020-01-14 18:19 | PDOC PROGRESS REPORT ---
Subjective Subjective:: Patient admitted for community-acquired pneumonia, found to be COVID negative. Blood culture growing Staphylococcus in 2/2 bottles, speciation and sensitivities pending. Patient continued on ceftriaxone/azithromycin with gradual consistent improvement daily. CO2 and CRP were elevated. He is maintained on 2.5 L nasal cannula saturation at 90%. Other than some shortness of breath and mild cough patient has no new complaints. 02/13/2020 Patient seems to be doing all right today with saturation 93% using his BiPAP when he sleeps. Blood cultures 2/2 bottles growing coag negative Staphylococcus. Will repeat blood cultures and I have attempted to ask the microbiology lab to get sensitivities on the coag negative staph to ensure we are not dealing with MRSE. Laboratory personnel are not answering the phone at this time. Possible the Staphylococcus is a contaminant but it is difficult to ignore 2/2 bottles growing the same bacteria. Patient does not have any new complaints today. CO2 is still quite high at 42. Reason For Visit: PNEUMONIA Physical Exam Vital Signs: Temp Pulse Resp BP Pulse Ox 97.7 F 69 20 132/65 H 93 01/14/20 15:54 01/14/20 15:54 01/14/20 15:54 01/14/20 15:54 01/14/20 15:54 Intake & Output 01/13/20 01/14/20 01/15/20 06:59 06:59 06:59 Intake Total 540 2500 527 Output Total 1000 550 Balance 540 1500 -23 Weight 184.4 kg 184.4 kg Exam: General appearance: PRESENT: no acute distress, super morbidly obese, well- developed, well-nourished, states he is gradually breathing a bit better Head exam: PRESENT: atraumatic, normocephalic Mouth exam: PRESENT: moist Respiratory exam: PRESENT: rhonchi - Mild. ABSENT: rales, wheezes Cardiovascular exam: PRESENT: RRR. ABSENT: diastolic murmur, rubs, systolic murmur GI/Abdominal exam: PRESENT: normal bowel sounds, soft. ABSENT: distended, guarding, mass, organolmegaly, rebound, tenderness Neurological exam: PRESENT: alert, awake, oriented to person, oriented to place, oriented to time, oriented to situation Psychiatric exam: PRESENT: appropriate affect, normal mood Skin exam: PRESENT: dry, intact, warm Results Laboratory Results: 01/14/20 10:08 01/14/20 05:50 01/14/20 01/14/20 01/14/20 05:50 05:50 08:42 WBC Cancelled RBC Cancelled Hgb Cancelled Hct Cancelled MCV Cancelled MCH Cancelled MCHC Cancelled RDW Cancelled Plt Count Cancelled Sodium 138.6 Potassium 4.4 Chloride 92 L Carbon Dioxide 42 H* Anion Gap 5 BUN 7 Creatinine 0.66 Est GFR ( Amer) > 60 Glucose 116 H Calcium 8.9 Urine Color STRAW Urine Appearance CLEAR Urine pH 7.0 Ur Specific [place] 1.003 Urine Protein NEGATIVE Urine Glucose (UA) NEGATIVE Urine Ketones NEGATIVE Urine Blood NEGATIVE Urine Nitrite NEGATIVE Ur Leukocyte Esterase NEGATIVE Urine WBC (Auto) 0 01/14/20 10:08 WBC 7.6 RBC 4.32 L Hgb 11.9 L Hct 36.0 L MCV 83 MCH 27.5 MCHC 33.0 RDW 15.4 H Plt Count 319 Sodium Potassium Chloride Carbon Dioxide Anion Gap BUN Creatinine Est GFR ( Amer) Glucose Calcium Urine Color Urine Appearance Urine pH Ur Specific [place] Urine Protein Urine Glucose (UA) Urine Ketones Urine Blood Urine Nitrite Ur Leukocyte Esterase Urine WBC (Auto) 01/10/20 18:56 Blood Blood Culture (PCR) - Final Staphylococcus Species 01/10/20 16:30 Blood Blood Culture (PCR) - Final Staphylococcus Species 01/10/20 01/10/20 14:41 20:35 Troponin I < 0.012 < 0.012 NT-Pro-B Natriuret Pep 306 H Impressions: Chest X-Ray 01/10/20 14:20 IMPRESSION: Ill-defined left retrocardiac opacities, possibly atelectasis or airspace disease. Stable enlarged cardiac silhouette. Assessment and Plan - Diagnosis (1) Pneumonia Qualifiers: Pneumonia type: due to unspecified organism Laterality: unspecified laterality Lung location: unspecified part of lung Qualified Code(s): J18.9 - Pneumonia, unspecified organism Is this a current diagnosis for this admission?: Yes Plan: Seen on imaging in left lower lobe. COVID serology negative. Stopped ceftriaxone, started vancomycin IV, continued azithromycin Blood cultures growing coag negative staph in 2/2 bottles, possible contaminant but could be MRSE, will need sensitivities from micro lab Infectious disease consult Repeat blood cultures pending (2) Gram-positive cocci bacteremia Is this a current diagnosis for this admission?: Yes (3) Hypoxia Is this a current diagnosis for this admission?: Yes (4) Diastolic heart failure Qualifiers: Heart failure chronicity: chronic Qualified Code(s): I50.32 - Chronic diastolic (congestive) heart failure Is this a current diagnosis for this admission?: Yes (5) Pulmonary hypertension Is this a current diagnosis for this admission?: Yes (6) Chest pain Qualifiers: Chest pain type: unspecified Qualified Code(s): R07.9 - Chest pain, unspecified Is this a current diagnosis for this admission?: Yes (7) Hypoventilation associated with obesity Is this a current diagnosis for this admission?: Yes Plan: CO2 very high chronically Patient aware that if he does not lose weight and will significantly shorten his life span and puts him at extremely high risk to from coronavirus if he were to contract this illness (9) Morbid obesity with alveolar hypoventilation Is this a current diagnosis for this admission?: Yes (10) Obstructive sleep apnea Is this a current diagnosis for this admission?: Yes - Time Time Spent with patient: 15-24 minutes Medications reviewed and adjusted accordingly: Yes Anticipated Discharge Disposition: Home, Self Care Anticipated Discharge Timeframe: within 48 hours - Inpatient Certification Based on my medical assessment, after consideration of the patient's comorbidities, presenting symptoms, or acuity I expect that the services needed warrant INPATIENT care.: Yes I certify that my determination is in accordance with my understanding of Medicare's requirements for reasonable and necessary INPATIENT services [42 CFR 412.3e].: Yes Medical Necessity: Significant Comorbidiites Make Outpatient Treatment Too Risky, Need Close Monitoring Due to Risk of Patient Decompensation, Need for IV Antibiotics, Risk of Complication if Not Cared For in Hospital, Risk of Diagnosis Which Will Require Inpatient Eval/Care/Monitoring
[2020-01-15] MEDS: ALBUTEROL SULFATE HFA (90 MCG/PUFF) 200 PUFF/8.5 GM MDI IH SCH ×3 (05:54→17:11)
[2020-01-15] MEDS: ENOXAPARIN SODIUM INJ 150 MG/1 ML DISP.SYRIN SUBCUT SCH ×2 (05:57→17:09)
[2020-01-15] MEDS: HYDROCODONE/ACETAMINOPHEN 10-325 MG TABLET PO PRN ×2 (06:06→14:52)
[2020-01-15] MEDS: ASPIRIN 81 MG TABLET, ENT COATED PO SCH (09:16)
[2020-01-15] MEDS: FUROSEMIDE 40 MG TABLET PO SCH (09:16)
[2020-01-15] MEDS: TAMSULOSIN HCL 0.4 MG CAP.SR.24H PO SCH (09:17)
[2020-01-15] MEDS: METOPROLOL TARTRATE 25 MG TABLET PO SCH ×2 (09:17→21:47)
[2020-01-15] MEDS: CEFTRIAXONE 2 GM/D5W RTU 2 GM/50 ML RTUPB IV SCH (09:17)
[2020-01-15] MEDS: DILTIAZEM HCL 240 MG CAPSULE.CR PO SCH (09:17)
[2020-01-15] MEDS: FAMOTIDINE 20 MG TABLET PO SCH ×2 (09:17→21:47)
[2020-01-15] MEDS: GUAIFENESIN 600 MG TABLET.SA PO SCH ×2 (09:17→21:47)
[2020-01-15 10:07] LABS: ABSOLUTE EOSINOPHILS # (AUTO) 0.3 10^3/uL (0.0-0.6); ABSOLUTE LYMPHOCYTES (AUTO) 0.7 10^3/uL (0.5-4.7); ABSOLUTE MONOCYTES (AUTO) 0.4 10^3/uL (0.1-1.4); ABSOLUTE NEUT (AUTO) 5.2 10^3/uL (1.7-8.2); BASOPHILS % (AUTO) 0.5 % (0-2); HEMATOCRIT 34.5 % (37.9-51.0); HEMOGLOBIN 11.4 g/dL (13.5-17.0); LYMPHOCYTES % (AUTO) 10.5 % (13-45); MEAN CORPUSCULAR HEMOGLOBIN 27.5 pg (27.0-33.4); MEAN CORPUSCULAR HGB CONC 32.9 g/dL (32.0-36.0); MEAN CORPUSCULAR VOLUME 83 fl (80-97); MONOCYTES % (AUTO) 5.6 % (3-13); PLATELET COUNT 306 10^3/uL (150-450); RED BLOOD COUNT 4.13 10^6/uL (4.35-5.55); RED CELL DISTRIBUTION WIDTH 15.8 % (11.5-14.0); SEGMENTED NEUTROPHILS % (AUTO) 78.4 % (42-78); TOTAL CELLS COUNTED % (AUTO) 100 %; WHITE BLOOD COUNT 6.7 10^3/uL (4.0-10.5)
[2020-01-15 10:23] LABS: BLOOD UREA NITROGEN 9 mg/dL (7-20); CALCIUM 8.8 mg/dL (8.4-10.2); CHLORIDE 92 mmol/L (98-107); GLUCOSE 143 mg/dL (75-110); POTASSIUM 4.8 mmol/L (3.6-5.0)
[2020-01-15 10:33] LABS: ANION GAP 1 (5-19); CARBON DIOXIDE 46 mmol/L (22-30)
--- NOTE | 2020-01-15 20:42 | PDOC PROGRESS REPORT ---
Subjective Subjective:: Patient admitted for community-acquired pneumonia, found to be COVID negative. Blood culture growing Staphylococcus in 2/2 bottles, speciation and sensitivities pending. Patient continued on ceftriaxone/azithromycin with gradual consistent improvement daily. CO2 and CRP were elevated. He is maintained on 2.5 L nasal cannula saturation at 90%. Other than some shortness of breath and mild cough patient has no new complaints. 01/14/2020 Patient seems to be doing all right today with saturation 93% using his BiPAP w hen he sleeps. Blood cultures 2/2 bottles growing coag negative Staphylococcus. Will repeat blood cultures and I have attempted to ask the microbiology lab to get sensitivities on the coag negative staph to ensure we are not dealing with MRSE. Laboratory personnel are not answering the phone at this time. Possible the Staphylococcus is a contaminant but it is difficult to ignore 2/2 bottles gr owing the same bacteria. Patient does not have any new complaints today. CO2 is still quite high at 42. 01/15/2020 Patient seems to be doing well today although his cultures have not completely resulted yet. I discussed with microbiology that hopefully these will come back today. His second set of cultures is still pending as well. Patient has no new complaints today Reason For Visit: PNEUMONIA Physical Exam Vital Signs: Temp Pulse Resp BP Pulse Ox 98.3 F 73 19 137/53 H 91 L 01/15/20 20:00 01/15/20 20:00 01/15/20 20:00 01/15/20 20:00 01/15/20 20:00 Intake & Output 01/14/20 01/15/20 01/16/20 06:59 06:59 06:59 Intake Total 2500 767 1466 Output Total 1000 850 300 Balance 1500 -83 1166 Weight 184.4 kg 184 kg Exam: General appearance: PRESENT: no acute distress, super morbidly obese, well- developed, well-nourished, states he feels pretty well today Head exam: PRESENT: atraumatic, normocephalic Mouth exam: PRESENT: moist Respiratory exam: PRESENT: rhonchi - Mild. ABSENT: rales, wheezes Cardiovascular exam: PRESENT: RRR. ABSENT: diastolic murmur, rubs, systolic murmur GI/Abdominal exam: PRESENT: normal bowel sounds, soft. ABSENT: distended, guarding, mass, organolmegaly, rebound, tenderness Neurological exam: PRESENT: alert, awake, oriented to person, oriented to place, oriented to time, oriented to situation Psychiatric exam: PRESENT: appropriate affect, normal mood Skin exam: PRESENT: dry, intact, warm Results Laboratory Results: 01/15/20 09:40 01/15/20 09:40 01/15/20 01/15/20 09:40 09:40 WBC 6.7 RBC 4.13 L Hgb 11.4 L Hct 34.5 L MCV 83 MCH 27.5 MCHC 32.9 RDW 15.8 H Plt Count 306 Seg Neutrophils % 78.4 H Sodium 138.8 Potassium 4.8 Chloride 92 L Carbon Dioxide 46 H* Anion Gap 1 L BUN 9 Creatinine 0.67 Est GFR ( Amer) > 60 Glucose 143 H Calcium 8.8 01/10/20 16:30 Blood Blood Culture (PCR) - Final Staphylococcus Species 01/10/20 18:56 Blood Blood Culture (PCR) - Final Staphylococcus Species 01/10/20 18:56 Blood Blood Culture - Final Staphylococcus Epidermidis 01/10/20 01/10/20 14:41 20:35 Troponin I < 0.012 < 0.012 NT-Pro-B Natriuret Pep 306 H Impressions: Chest X-Ray 01/10/20 14:20 IMPRESSION: Ill-defined left retrocardiac opacities, possibly atelectasis or airspace disease. Stable enlarged cardiac silhouette. Assessment and Plan - Diagnosis (1) Pneumonia Qualifiers: Pneumonia type: due to unspecified organism Laterality: unspecified laterality Lung location: unspecified part of lung Qualified Code(s): J18.9 - Pneumonia, unspecified organism Is this a current diagnosis for this admission?: Yes Plan: Seen on imaging in left lower lobe. COVID serology negative. Stopped ceftriaxone, started vancomycin IV, continued azithromycin Blood cultures growing coag negative staph in 2/2 bottles, possible contaminant but could be MRSE, will need sensitivities from micro lab Infectious disease consult, still pending Repeat blood cultures pending (2) Gram-positive cocci bacteremia Is this a current diagnosis for this admission?: Yes (3) Hypoxia Is this a current diagnosis for this admission?: Yes (4) Diastolic heart failure Qualifiers: Heart failure chronicity: chronic Qualified Code(s): I50.32 - Chronic diastolic (congestive) heart failure Is this a current diagnosis for this admission?: Yes (5) Pulmonary hypertension Is this a current diagnosis for this admission?: Yes (6) Chest pain Qualifiers: Chest pain type: unspecified Qualified Code(s): R07.9 - Chest pain, unspecified Is this a current diagnosis for this admission?: Yes (7) Hypoventilation associated with obesity Is this a current diagnosis for this admission?: Yes (9) Morbid obesity with alveolar hypoventilation Is this a current diagnosis for this admission?: Yes (10) Obstructive sleep apnea Is this a current diagnosis for this admission?: Yes - Time Time Spent with patient: 15-24 minutes Anticipated Discharge Disposition: Home, Self Care Anticipated Discharge Timeframe: within 48 hours - Inpatient Certification Based on my medical assessment, after consideration of the patient's co morbidities, presenting symptoms, or acuity I expect that the services needed warrant INPATIENT care.: Yes I certify that my determination is in accordance with my understanding of Medicare's requirements for reasonable and necessary INPATIENT services [42 CFR 412.3e].: Yes Medical Necessity: Significant Comorbidiites Make Outpatient Treatment Too Risky, Need Close Monitoring Due to Risk of Patient Decompensation, Risk of Complication if Not Cared For in Hospital, Risk of Diagnosis Which Will Require Inpatient Eval/Care/Monitoring
[2020-01-16] MEDS: ALBUTEROL SULFATE HFA (90 MCG/PUFF) 200 PUFF/8.5 GM MDI IH SCH ×4 (00:14→18:36)
[2020-01-16] MEDS: HYDROCODONE/ACETAMINOPHEN 10-325 MG TABLET PO PRN ×2 (03:07→18:52)
[2020-01-16] MEDS: ENOXAPARIN SODIUM INJ 150 MG/1 ML DISP.SYRIN SUBCUT SCH ×2 (05:29→18:36)
[2020-01-16 06:06] LABS: BLOOD UREA NITROGEN 9 mg/dL (7-20); CALCIUM 8.5 mg/dL (8.4-10.2); CHLORIDE 90 mmol/L (98-107); GLUCOSE 94 mg/dL (75-110); POTASSIUM 4.2 mmol/L (3.6-5.0)
[2020-01-16 06:28] LABS: ANION GAP 5 (5-19)
[2020-01-16 06:29] LABS: CARBON DIOXIDE 43 mmol/L (22-30)
[2020-01-16 09:15] LABS: ABSOLUTE EOSINOPHILS # (AUTO) 0.4 10^3/uL (0.0-0.6); ABSOLUTE LYMPHOCYTES (AUTO) 0.8 10^3/uL (0.5-4.7); ABSOLUTE MONOCYTES (AUTO) 0.4 10^3/uL (0.1-1.4); ABSOLUTE NEUT (AUTO) 4.3 10^3/uL (1.7-8.2); BASOPHILS % (AUTO) 0.4 % (0-2); EOSINOPHILS % (AUTO) 6.3 % (0-6); HEMATOCRIT 34.6 % (37.9-51.0); HEMOGLOBIN 11.5 g/dL (13.5-17.0); LYMPHOCYTES % (AUTO) 13.8 % (13-45); MEAN CORPUSCULAR HEMOGLOBIN 27.8 pg (27.0-33.4); MEAN CORPUSCULAR HGB CONC 33.2 g/dL (32.0-36.0); MEAN CORPUSCULAR VOLUME 84 fl (80-97); MONOCYTES % (AUTO) 6.5 % (3-13); PLATELET COUNT 258 10^3/uL (150-450); RED BLOOD COUNT 4.13 10^6/uL (4.35-5.55); RED CELL DISTRIBUTION WIDTH 15.6 % (11.5-14.0); TOTAL CELLS COUNTED % (AUTO) 100 %; WHITE BLOOD COUNT 5.9 10^3/uL (4.0-10.5)
[2020-01-16 09:31] LABS: BLOOD UREA NITROGEN 8 mg/dL (7-20); CALCIUM 8.6 mg/dL (8.4-10.2); CHLORIDE 87 mmol/L (98-107); GLUCOSE 137 mg/dL (75-110); POTASSIUM 4.2 mmol/L (3.6-5.0)
[2020-01-16 09:44] LABS: ANION GAP 6 (5-19)
[2020-01-16 09:46] LABS: CARBON DIOXIDE 45 mmol/L (22-30)
[2020-01-16] MEDS: ASPIRIN 81 MG TABLET, ENT COATED PO SCH (09:47)
[2020-01-16] MEDS: FUROSEMIDE 40 MG TABLET PO SCH (09:47)
[2020-01-16] MEDS: DILTIAZEM HCL 240 MG CAPSULE.CR PO SCH (09:47)
[2020-01-16] MEDS: FAMOTIDINE 20 MG TABLET PO SCH (09:47)
[2020-01-16] MEDS: METOPROLOL TARTRATE 25 MG TABLET PO SCH (09:48)
[2020-01-16] MEDS: CEFTRIAXONE 2 GM/D5W RTU 2 GM/50 ML RTUPB IV SCH (09:48)
[2020-01-16] MEDS: TAMSULOSIN HCL 0.4 MG CAP.SR.24H PO SCH (09:48)
[2020-01-16] MEDS: GUAIFENESIN 600 MG TABLET.SA PO SCH (09:48)
--- NOTE | 2020-01-16 14:55 | Progress Note ---
Provider Note Provider Note: Patient was admitted for community-acquired pneumonia and was treated with antibiotics effectively and this antibiotic course will end today. Given his multiple comorbidities that significantly affects his breathing ability including OHS, JASON, CHF, his oxygen needs are not a result of his already resolved bacterial pneumonia. His current oxygen requirements are most likely a result of his baseline respiratory failure.
--- NOTE | 2020-01-16 18:16 | PDOC DISCHARGE SUMMARY ---
Impression - Admit/DC Date/PCP Admission Date/Primary Care Provider: 01/10/20 16:15 Discharge Date: 01/16/20 - Discharge Diagnosis (1) Pneumonia Is this a current diagnosis for this admission?: Yes (2) Gram-positive cocci bacteremia Is this a current diagnosis for this admission?: Yes (3) Hypoxia Is this a current diagnosis for this admission?: Yes (4) Diastolic heart failure Is this a current diagnosis for this admission?: Yes (5) Pulmonary hypertension Is this a current diagnosis for this admission?: Yes (6) Chest pain Is this a current diagnosis for this admission?: Yes (7) Hypoventilation associated with obesity Is this a current diagnosis for this admission?: Yes (8) Morbid obesity with BMI of 60.0-69.9, adult Is this a current diagnosis for this admission?: Yes (9) Morbid obesity with alveolar hypoventilation Is this a current diagnosis for this admission?: Yes (10) Obstructive sleep apnea Is this a current diagnosis for this admission?: Yes - Additional Information Resuscitation Status: Full Code Discharge Diet: As Tolerated, Other (Comments) - Vegan Discharge Activity: Activity As Tolerated, Balance Activity w/Rest Home Medications: Albuterol Sulfate [Proair HFA Inhalation Aerosol 8.5 gm MDI] 2 puff IH Q4HP PRN 12/26/19 Diltiazem HCl [Cartia Xt] 240 mg PO DAILY 12/26/19 Tamsulosin HCl [Flomax 0.4 mg Cap.sr] 0.4 mg PO DAILY 12/26/19 Furosemide [Lasix 40 mg Tablet] 40 mg PO QAM 30 Days tablet 12/31/19 Metoprolol Tartrate [Lopressor 25 mg Tablet] 25 mg PO Q12 tablet 12/31/19 Aspirin [Ecotrin 81 mg EC Tablet] 162 mg PO DAILY 01/10/20 History of Present Illiness History of Present Illness: Per Admitting Physician: "History of Present Illness: DUNCAN POLK is a 55 year old male with history of obesity hypoventilation, sleep apnea, who presents to the hospital after becoming dyspneic in the past 24 hours. He was also experiencing some chest pain when he woke up it was worse with movement of his arm. Also was pleuritic and limited his breathing. He thinks he might of pulled a muscle. He does not recall sleeping on that side. He denies any fever or chills but does endorse a nonproductive cough. His cough is not all that pronounced. He has been taking the medications he was discharged with religiously. He denies any sick contacts. Did admit to diaphoresis this morning. Notably he was just treated in the hospital for about 7 days earlier this month for diastolic heart failure and fluid overload state as well as respiratory hypercapnic failure. He was seen by pulmonology at that time and was diuresed appropriately. This time he comes in with a white count which is similar to before. He complains of leg swelling but his BNP is markedly decreased from his previous presentation. " Hospital Course Hospital Course: Patient admitted for acute on chronic hypoxemic and hypercapnic respiratory failure secondary to community-acquired pneumonia, OHS, JASON, pulmonary hypertension, diastolic CHF. Pneumonia resolved with a 7-day course of IV an tibiotics, however patient still required supplemental oxygen and this was ordered at discharge. He must have follow-up with trapeze performer to reevaluate his pulmonary hypertension and OHS. He was counseled extensively on dietary changes he can make to lose weight including switching to a vegan diet with vitamin and protein supplements. Patient had 1/2+ blood cultures growing a contaminant staph epidermidis. (1) Pneumonia Qualifiers: Pneumonia type: due to unspecified organism Laterality: unspecified laterality Lung location: unspecified part of lung Qualified Code(s): J18.9 - Pneumonia, unspecified organism Is this a current diagnosis for this admission?: Yes Plan: Seen on imaging in left lower lobe. COVID serology negative. Stopped ceftriaxone, started vancomycin IV, continued azithromycin, switched back to ceftriaxone to finish a 7-day course Blood cultures growing coag negative staph in 2/2 bottles, possible contaminant but could be MRSE, will need sensitivities from micro lab Infectious disease not needed Repeat blood cultures growing 1/2 staph epidermidis, contaminant (2) Gram-positive cocci bacteremia Is this a current diagnosis for this admission?: Yes (3) Hypoxia Is this a current diagnosis for this admission?: Yes (4) chronic diastolic heart failure Qualifiers: Heart failure chronicity: chronic Qualified Code(s): I50.32 - Chronic diastolic (congestive) heart failure Is this a current diagnosis for this admission?: Yes (5) Pulmonary hypertension Is this a current diagnosis for this admission?: Yes (6) Chest pain Qualifiers: Chest pain type: unspecified Qualified Code(s): R07.9 - Chest pain, unspecified Is this a current diagnosis for this admission?: Yes (7) Hypoventilation associated with obesity Is this a current diagnosis for this admission?: Yes (9) Morbid obesity with alveolar hypoventilation Is this a current diagnosis for this admission?: Yes (10) Obstructive sleep apnea Is this a current diagnosis for this admission?: Yes Physical Exam Vital Signs: Temp Pulse Resp BP Pulse Ox 97.9 F 66 23 H 139/49 H 91 L 01/16/20 15:44 01/16/20 15:44 01/16/20 15:44 01/16/20 15:44 01/16/20 15:44 Intake & Output 01/15/20 01/16/20 01/17/20 06:59 06:59 06:59 Intake Total 767 2666 650 Output Total 850 1300 100 Balance -83 1366 550 Weight 184 kg 184 kg Exam: General appearance: PRESENT: no acute distress, super morbidly obese, well- developed, well-nourished, states he feels very well and would like to be discharged home today Head exam: PRESENT: atraumatic, normocephalic Mouth exam: PRESENT: moist Respiratory exam: PRESENT: rhonchi - Mild. ABSENT: rales, wheezes Cardiovascular exam: PRESENT: RRR. ABSENT: diastolic murmur, rubs, systolic mu rmur GI/Abdominal exam: PRESENT: normal bowel sounds, soft. ABSENT: distended, guarding, mass, organolmegaly, rebound, tenderness Neurological exam: PRESENT: alert, awake, oriented to person, oriented to place, oriented to time, oriented to situation Psychiatric exam: PRESENT: appropriate affect, normal mood Skin exam: PRESENT: dry, intact, warm Results Laboratory Results: WBC 5.9 10^3/uL (4.0-10.5) 01/16/20 08:55 RBC 4.13 10^6/uL (4.35-5.55) L 01/16/20 08:55 Hgb 11.5 g/dL (13.5-17.0) L 01/16/20 08:55 Hct 34.6 % (37.9-51.0) L 01/16/20 08:55 MCV 84 fl (80-97) 01/16/20 08:55 MCH 27.8 pg (27.0-33.4) 01/16/20 08:55 MCHC 33.2 g/dL (32.0-36.0) 01/16/20 08:55 RDW 15.6 % (11.5-14.0) H 01/16/20 08:55 Plt Count 258 10^3/uL (150-450) 01/16/20 08:55 Lymph % (Auto) 13.8 % (13-45) 01/16/20 08:55 [place] % (Auto) 6.5 % (3-13) 01/16/20 08:55 Eos % (Auto) 6.3 % (0-6) H 01/16/20 08:55 Baso % (Auto) 0.4 % (0-2) 01/16/20 08:55 Absolute Neuts (auto) 4.3 10^3/uL (1.7-8.2) 01/16/20 08:55 Absolute Lymphs (auto) 0.8 10^3/uL (0.5-4.7) 01/16/20 08:55 Absolute Monos (auto) 0.4 10^3/uL (0.1-1.4) 01/16/20 08:55 Absolute Eos (auto) 0.4 10^3/uL (0.0-0.6) 01/16/20 08:55 Absolute Basos (auto) 0.0 10^3/uL (0.0-0.2) 01/16/20 08:55 Seg Neutrophils % 73.0 % (42-78) 01/16/20 08:55 Platelet Estimate Cancelled 01/14/20 05:50 ESR 46 mm/hr (0-20) H 01/12/20 04:06 ESR Cancelled 01/12/20 04:06 Sodium 137.6 mmol/L (137-145) 01/16/20 08:55 Potassium 4.2 mmol/L (3.6-5.0) 01/16/20 08:55 Chloride 87 mmol/L (98-107) L 01/16/20 08:55 Carbon Dioxide 45 mmol/L (22-30) H* 01/16/20 08:55 Anion Gap 6 (5-19) 01/16/20 08:55 BUN 8 mg/dL (7-20) 01/16/20 08:55 Creatinine 0.69 mg/dL (0.52-1.25) 01/16/20 08:55 Est GFR ( Amer) > 60 (>60) 01/16/20 08:55 Est GFR (MDRD) Non-Af > 60 (>60) 01/16/20 08:55 Glucose 137 mg/dL (75-110) H 01/16/20 08:55 POC Glucose 111 mg/dL (70-110) H 01/11/20 16:34 Calcium 8.6 mg/dL (8.4-10.2) 01/16/20 08:55 Magnesium 1.8 mg/dL (1.6-2.3) 01/10/20 14:41 Ferritin 156.00 ng/mL (17.9-464.0) 01/12/20 04:06 Total Bilirubin 0.5 mg/dL (0.2-1.3) 01/10/20 14:41 Direct Bilirubin 0.3 mg/dL (0.0-0.4) 01/10/20 14:41 Neonat Total Bilirubin Not Reportable 01/10/20 14:41 Neonat Direct Bilirubin Not Reportable 01/10/20 14:41 Neonat Indirect Bili Not Reportable 01/10/20 14:41 AST 23 U/L (17-59) 01/10/20 14:41 ALT 23 U/L (<50) 01/10/20 14:41 Alkaline Phosphatase 66 U/L (38-126) 01/10/20 14:41 Troponin I < 0.012 ng/mL 01/10/20 20:35 C-Reactive Protein 66.9 mg/L (<10.0) H 01/12/20 04:06 NT-Pro-B Natriuret Pep 306 pg/mL (<125) H 01/10/20 14:41 Total Protein 6.4 g/dL (6.3-8.2) 01/10/20 14:41 Albumin 3.4 g/dL (3.5-5.0) L 01/10/20 14:41 Urine Color STRAW 01/14/20 08:42 Urine Appearance CLEAR 01/14/20 08:42 Urine pH 7.0 (5.0-9.0) 01/14/20 08:42 Ur Specific [place] 1.003 01/14/20 08:42 Urine Protein NEGATIVE mg/dL (NEGATIVE) 01/14/20 08:42 Urine Glucose (UA) NEGATIVE mg/dL (NEGATIVE) 01/14/20 08:42 Urine Ketones NEGATIVE mg/dL (NEGATIVE) 01/14/20 08:42 Urine Blood NEGATIVE (NEGATIVE) 01/14/20 08:42 Urine Nitrite NEGATIVE (NEGATIVE) 01/14/20 08:42 Urine Bilirubin NEGATIVE (NEGATIVE) 01/14/20 08:42 Urine Urobilinogen NEGATIVE mg/dL (<2.0) 01/14/20 08:42 Ur Leukocyte Esterase NEGATIVE (NEGATIVE) 01/14/20 08:42 Urine WBC (Auto) 0 /HPF 01/14/20 08:42 Squamous Epi Cells Auto <1 /HPF 01/14/20 08:42 Urine Ascorbic Acid NEGATIVE (NEGATIVE) 01/14/20 08:42 Chlamy pneumoniae PCR Cancelled 01/10/20 17:32 Adenovirus (PCR) Cancelled 01/10/20 17:32 B. pertussis DNA (PCR) Cancelled 01/10/20 17:32 B.parapertussis DNA PCR Cancelled 01/10/20 17:32 Coronavirus OC43 (PCR) Cancelled 01/10/20 17:32 Coronavirus HKU1 (PCR) Cancelled 01/10/20 17:32 Coronavirus 229E (PCR) Cancelled 01/10/20 17:32 COVID-19 Source NASOPHARYNGEAL 01/10/20 17:32 COVID-19 (OCTAVIO) NOT DETECTED 01/10/20 17:32 Coronavirus NL63 (PCR) Cancelled 01/10/20 17:32 Human Metapneumovir PCR Cancelled 01/10/20 17:32 Influenza A (H1) PCR Cancelled 01/10/20 17:32 Influ A (H1N1/09) PCR Cancelled 01/10/20 17:32 Influenza A (H3) PCR Cancelled 01/10/20 17:32 Influenza Type A (PCR) Cancelled 01/10/20 17:32 Influenza Type B (PCR) Cancelled 01/10/20 17:32 M. pneumoniae (PCR) Cancelled 01/10/20 17:32 Parainfluenza 1 (PCR) Cancelled 01/10/20 17:32 Parainfluenza 2 (PCR) Cancelled 01/10/20 17:32 Parainfluenza 3 (PCR) Cancelled 01/10/20 17:32 Parainfluenza 4 (PCR) Cancelled 01/10/20 17:32 RSV (PCR) Cancelled 01/10/20 17:32 Entero/Rhino (PCR) Cancelled 01/10/20 17:32 Slides for Path Review Cancelled 01/14/20 05:50 01/10/20 01/10/20 14:41 20:35 Troponin I < 0.012 < 0.012 NT-Pro-B Natriuret Pep 306 H Impressions: Chest X-Ray 01/10/20 14:20 IMPRESSION: Ill-defined left retrocardiac opacities, possibly atelectasis or airspace disease. Stable enlarged cardiac silhouette. Plan Plan of Treatment: Follow-up with PCP Follow-up with pulmonology Vegan diet Time Spent: Greater than 30 Minutes Stroke Is this a Stroke Patient?: No Acute Heart Failure - Is this a Heart Failure Patient?: Yes Documentation of LVEF assessment?: Yes LVEF: LVEF Greater Than 40% Anticoagulant Therapy: N/A Discharged on Evidence-Based Beta Blockers: Yes
[2020-01-16 18:49] VITALS: BP 137/53
== END 2020-01-16 19:16 | disposition home or self-care (01) | DRG 193 ==
LOC: ER 13:52 → EH 16:15 → 3N 21:30 → 4S 01-12 13:45
PROVIDERS: ADMIT Internal Medicine; ATTEND Internal Medicine
PROC: 5A09557 Assistance with Respiratory Ventilation, Greater than 96 Consecutive Hours, Continuous Positive Airway Pressure (ICD-10-PCS; principal; 2020-01-11)
DX: J18.9 Pneumonia, unspecified organism (principal); J96.21 Acute and chronic respiratory failure with hypoxia; J96.22 Acute and chronic respiratory failure with hypercapnia; R78.81 Bacteremia; E66.2 Morbid (severe) obesity with alveolar hypoventilation; Z68.44 Body mass index [BMI] 60.0-69.9, adult; I50.32 Chronic diastolic (congestive) heart failure; I27.20 Pulmonary hypertension, unspecified; I11.0 Hypertensive heart disease with heart failure; R07.89 Other chest pain; R07.81 Pleurodynia; B95.8 Unspecified staphylococcus as the cause of diseases classified elsewhere; Z20.828 Contact with and (suspected) exposure to other viral communicable diseases; Z82.49 Family history of ischemic heart disease and other diseases of the circulatory system; Z79.891 Long term (current) use of opiate analgesic; Z79.82 Long term (current) use of aspirin
CPT/HCPCS: 36415; 71045; 80048; 80053; 81001; 82728; 82962; 83735; 83880; 84484; 85025; 85027; 85652; 86140; 87040; 87077; 87150; 87186; 87635; 93005; 93010; 94660; 94799; 96365; 96375; 99285; C9803; J0456; J0696; J1650; J1885; J3490; J7060